=== PATIENT | male | born 1985 | race American Indian/Alaskan Native ===

== ENCOUNTER 2018-07-24 18:54 | Inpatient (IN) | payer MEDICAID ==
[2018-07-24] MEDS ORDERED: NITROSTAT SL ONE ×2 (19:13→21:35)
[2018-07-24] MEDS ORDERED: CATAPRES PO ONE (20:01)
[2018-07-24] MEDS ORDERED: NITRO-BID 2% TP ONE (20:01)
[2018-07-24] MEDS ORDERED: SUBLIMAZE IV ONE (20:01)
[2018-07-24] MEDS ORDERED: ZOFRAN IV ONE (20:01)
[2018-07-24] MEDS ORDERED: ASPIRIN PO ONE (20:02)
--- NOTE | 2018-07-24 20:17 | Emergency Department Report ---
HPI - General Chief Complaint: Chest Pain Time Seen by Provider: 07/24/18 19:48 - HPI HPI: Room 3 The patient is a 33-year-old male presented with a chief complaint of chest pain. Patient states for 1 month he's had intermittent left-sided chest pain bu t has increased over the past 2-to 3 days. Patient is to dyspnea on exertion for one day. Patient describes chest pain as sharp and dull in nature. Patient denies shortness of breath, nausea/vomiting or diaphoresis. Patient states he believes his last stress test occurred over 5 years ago and he is not certain if he's ever had a cardiac catheterization. Location: Chest Duration: [See above] Quality: Sharp/dull Severity: Moderate Modifying factors: [see above] Context: [see above] Mode of transportation: [not driving] ED Past Medical Hx - Past Medical History Previous Medical History?: Yes Hx Hypertension: Yes Hx Congestive Heart Failure: Yes Additional medical history: Aortic Dissection, Gout - Surgical History Past Surgical History?: Yes Hx Open Heart Surgery: Yes Additional Surgical History: Aortic valve replacecment (porcine) - Family History Family history: no significant - Social History Smoking Status: Never Smoker Substance Use Type: None (denies illicit drug use) ED Review of Systems ROS: Stated complaint: CHEST PAIN Other details as noted in HPI Constitutional: denies: diaphoresis Eyes: denies: eye pain ENT: denies: throat pain Respiratory: SOB with exertion Cardiovascular: chest pain Endocrine: no symptoms reported Gastrointestinal: denies: nausea, vomiting Genitourinary: denies: dysuria Musculoskeletal: denies: back pain Neurological: headache Physical Exam - Physical Exam Vital Signs: Vital Signs 07/24/18 19:13 Temperature 99.3 F Pulse Rate 84 Respiratory 31 H Rate Blood Pressure 216/144 O2 Sat by Pulse 95 Oximetry ED Course Vital Signs 07/24/18 19:13 Temperature 99.3 F Pulse Rate 84 Respiratory 31 H Rate Blood Pressure 216/144 O2 Sat by Pulse 95 Oximetry ED Medical Decision Making - Lab Data Result diagrams: 07/24/18 20:25 07/24/18 20:25 Laboratory Tests 07/24/18 07/24/18 07/24/18 20:25 20:25 20:25 WBC 6.0 RBC 4.85 Hgb 13.9 Hct 42.3 MCV 87 MCH 29 MCHC 33 RDW 16.6 H Plt Count 195 Lymph % (Auto) 36.7 H [place] % (Auto) 13.2 H Eos % (Auto) 2.1 Baso % (Auto) 0.8 Lymph # 2.2 [place] # 0.8 Eos # 0.1 Baso # 0.0 Seg Neutrophils % 47.2 Seg Neutrophils # 2.8 PT 14.0 INR 1.02 APTT 34.8 Sodium 140 Potassium 3.9 Chloride 100.2 Carbon Dioxide 25 Anion Gap 19 BUN 33 H Creatinine 2.8 H Estimated GFR 32 BUN/Creatinine Ratio 12 Glucose 93 Calcium 8.4 Total Creatine Kinase 731 H CK-MB (CK-2) 8.4 H CK-MB (CK-2) Rel Index 1.1 Troponin T 0.051 H - EKG Data -: EKG Interpreted by Me EKG shows normal: sinus rhythm Rate: normal - EKG Data When compared to previous EKG there are: previous EKG unavailable Interpretation: nonspecific ST-T wave emy (T-wave inversion in lead 1, aVL, V5, V6) - Radiology Data Radiology results: image reviewed (chest x-ray) interpreted by me: Chest [id number]. No focal infiltrates, no pneumothorax - Differential Diagnosis hypertensive emergency, ACS, pericarditis, GERD Critical care attestation.: If time is entered above; I have spent that time in minutes in the direct care of this critically ill patient, excluding procedure time. ED Disposition Clinical Impression: Chest pain, Hypertensive urgency, Renal insufficiency Disposition: 09 OP ADMIT IP TO THIS HOSP Is pt being admited?: Yes Does the pt Need Aspirin: Yes Condition: Fair Instructions: Chest Pain (ED) Referrals: LING POOLE MD [Primary Care Provider] - 3-5 Days Time of Disposition: 21:21 (hospitalist paged (Dr. Luba Perez))
[2018-07-24 20:48] LABS: Basophils % (Auto) 0.8 % (0.0-1.8); Eosinophils # (Auto) 0.1 K/mm3 (0.0-0.4); Eosinophils % (Auto) 2.1 % (0.0-4.3); Hematocrit 42.3 % (35.5-45.6); Hemoglobin 13.9 gm/dl (11.8-15.2); Lymphocytes # (Auto) 2.2 K/mm3 (1.2-5.4); Lymphocytes % (Auto) 36.7 % (13.4-35.0); Mean Corpuscular HGB Conc 33 % (32-34); Mean Corpuscular Volume 87 fl (84-94); Monocytes # (Auto) 0.8 K/mm3 (0.0-0.8); Monocytes % (Auto) 13.2 % (0.0-7.3); Platelet Count 195 K/mm3 (140-440); Red Blood Count 4.85 M/mm3 (3.65-5.03); Red Cell Distribution Width 16.6 % (13.2-15.2)
[2018-07-24 20:59] LABS: INR 1.02 (0.87-1.13)
[2018-07-24 21:00] LABS: Partial Thromboplastin Time 34.8 Sec. (24.2-36.6)
[2018-07-24 21:08] LABS: Creatine Kinase MB 8.4 ng/mL (0.0-4.0)
[2018-07-24 21:09] LABS: Calcium 8.4 mg/dL (8.4-10.2)
[2018-07-24 21:24] LABS: Chol/HDL Ratio 5.14 %
--- NOTE | 2018-07-24 21:51 | XRay Report ---
PROCEDURE: XR CHEST 1V AP TECHNIQUE: Chest radiograph single view. HISTORY: chest pain COMPARISONS: None . FINDINGS: There is mild to moderate degree cardiomegaly. Pulmonary venous congestion is noted. There are subseg mental atelectatic changes in the right lung base. The right hilar structures are prominent. Bilatera l pleural spaces are clear. Sternal sutures are identified. IMPRESSION: Cardiomegaly with pulmonary venous congestion Prominent right hilar structures which is most likely secondary to patient rotation to the left This document is electronically signed by Doug Spivey MD., July 24 2018 09:49:07 PM ET
--- NOTE | 2018-07-24 22:43 | History and Physical Report ---
History of Present Illness Date of examination: 07/24/18 History of present illness: 33-year-old man with a history of hypertension, CHF, gout status post aortic dissection repair is emergency room with complaints of chest pain. Pain is in the left chest which he describes as a sharp pain, sometimes dull, intermittent between 30 minutes -2 hours, intensity 5/10, cannot identify exacerbating factors. Admits shortness of breath, dyspnea on exertion, swelling in his belly, states compliant with medications. No nausea vomiting Review of systems Constitutional: no weight loss, chills, fever Ears, eyes, nose, mouth and throat: no nasal congestion, no nasal discharge, no sinus pressure, no vision change, no red eye. Neck: No neck pain or rigidity. Cardiovascular: no palpitations, +chest pain Respiratory: no cough Gastrointestinal: no hematochezia, abdominal pain Genitourinary : no frequency , no hematuria Musculoskeletal: no joint swelling or muscle ache Integumentary: no rash, no pruritis Neurological: no parathesias, no focal weakness Endocrine: no cold or heat intolerance, no polyuria or polydipsia Hematologic/Lymphatic: no easy bruising, no easy bleeding, no gland swelling Allergic/Immunologic: no urticaria, no angioedema. PAST MEDICAL HISTORY:hypertension, CHF, gout PAST SURGICAL HISTORY: Hernia repair, aortic dissection repair SOCIAL HISTORY: Denies alcohol, drugs, tobacco FAMILY HISTORY: Hypertension Medications and Allergies Allergies Allergy/AdvReac Type Severity Reaction Status Date / Time No Known Allergies Allergy Unverified 07/24/18 20:25 Exam - Physical Exam Narrative exam: General Apperance: The patient lying in bed, breathing comfortable HEENT: Normocephalic, atraumatic. Pupils equally round and reactive to light, EOMI, no sclericterus or JVD or thyromegaly or nodule. , no carotid bruit, mucous membranes moist, no exudate or erythema Heart: S1-S2, regular is rhythm Lungs: Crackles bilaterally, breathing comfortable Abdomen: Positive bowel sounds, soft, nontender, nondistended, no organomegaly Extremities: No edema cyanosis clubbing Skin: no rash, nodule, warm and dry Neuro: cranial nerves 2-12 intact, speech is fluent, motor/sensory intact - Constitutional Vitals: Temp Pulse Resp BP Pulse Ox 99.3 F 79 25 H 185/119 92 07/24/18 19:13 07/24/18 21:45 07/24/18 21:45 07/24/18 21:45 07/24/18 21:45 Results - Labs CBC & Chem 7: 07/24/18 20:25 07/24/18 20:25 Labs: Abnormal lab results 07/24/18 07/24/18 Range/Units 20:25 20:25 RDW 16.6 H (13.2-15.2) % Lymph % (Auto) 36.7 H (13.4-35.0) % [place] % (Auto) 13.2 H (0.0-7.3) % BUN 33 H (9-20) mg/dL Creatinine 2.8 H (0.8-1.5) mg/dL Total Creatine Kinase 731 H (55-170) units/L CK-MB (CK-2) 8.4 H (0.0-4.0) ng/mL Troponin T 0.051 H (0.00-0.029) ng/mL LDL Cholesterol Direct 154 H (50-130) mg/dL HDL Cholesterol 35 L (40-59) mg/dL - Imaging and Cardiology EKG: image reviewed Chest x-ray: report reviewed Assessment and Plan Assessment Acute on chronic CHF, systolic Chest pain kidney disease, ? Acute hypertension gout Plan Diurese with IV Lasix Start Beta khoi, aspirin hold AYLIN inhibitor for now Check cardiac enzymes, echo, consult cardiology Refuse stress test IV morphine, DVT prophylaxis
[2018-07-24] MEDS ORDERED: SODIUM CHLORIDE FLUSH SYRINGE 10 ML IV PRN (22:58)
[2018-07-25] MEDS: APRESOLINE IV PRN ×5 (00:02→23:38)
[2018-07-25 00:04] LABS: Creatine Kinase MB 6.9 ng/mL (0.0-4.0)
[2018-07-25] MEDS ORDERED: CARDIZEM IV ONE (01:02)
[2018-07-25] MEDS ORDERED: CARDIZEM ONE (01:07)
[2018-07-25] MEDS: PERCOCET 5/325 PO PRN ×3 (01:23→18:39)
[2018-07-25] MEDS ORDERED: PERCOCET 5/325 ONE (01:25)
[2018-07-25] MEDS: TYLENOL PO PRN (02:21)
[2018-07-25] MEDS: ZOFRAN IV PRN ×2 (04:38→11:07)
[2018-07-25] MEDS: LASIX IV SCH ×2 (05:41→18:04)
[2018-07-25 06:03] LABS: Basophils % (Auto) 0.8 % (0.0-1.8); Eosinophils # (Auto) 0.1 K/mm3 (0.0-0.4); Eosinophils % (Auto) 1.1 % (0.0-4.3); Hematocrit 41.7 % (35.5-45.6); Hemoglobin 13.9 gm/dl (11.8-15.2); Lymphocytes # (Auto) 1.9 K/mm3 (1.2-5.4); Lymphocytes % (Auto) 29.8 % (13.4-35.0); Mean Corpuscular HGB Conc 33 % (32-34); Mean Corpuscular Volume 88 fl (84-94); Monocytes # (Auto) 0.6 K/mm3 (0.0-0.8); Monocytes % (Auto) 9.5 % (0.0-7.3); Platelet Count 200 K/mm3 (140-440); Red Blood Count 4.74 M/mm3 (3.65-5.03); Red Cell Distribution Width 16.7 % (13.2-15.2)
[2018-07-25 06:12] LABS: Creatine Kinase MB 7.2 ng/mL (0.0-4.0)
[2018-07-25 06:14] LABS: Calcium 8.4 mg/dL (8.4-10.2)
[2018-07-25] MEDS ORDERED: LOPRESSOR PO SCH (08:00)
[2018-07-25] MEDS: LOVENOX SUB-Q SCH (09:25)
[2018-07-25] MEDS: BABY ASPIRIN PO SCH (09:25)
[2018-07-25] MEDS: NORVASC PO SCH (09:26)
[2018-07-25] MEDS: SODIUM CHLORIDE FLUSH SYRINGE 10 ML IV SCH ×2 (09:34→22:35)
[2018-07-25] MEDS: CATAPRES PO SCH ×2 (11:14→18:36)
[2018-07-25] MEDS ORDERED: LOPRESSOR IV ONE (11:30)
--- NOTE | 2018-07-25 11:51 | Consultation ---
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 He reports that he sees cardiology at [place]. He presented with complaints of chest pain, SOB, SANTIAGO, abdominal swelling and BLE swelling for the past several weeks. He describes his chest pain as a left-sided intermittent throbbing pain which has no clear aggravating or alleviating factors. He reports compliance with his home medication regimen. BPs noted to be significantly elevated. Pt also with c/o headache on evaluation. Echo done 02/2018 showed EF 65%, LV frank severely thickened, abnormal diastolic function, sinus of valsalva is mildly dilated (44 mm), known aortic dissection, intimal dissection flap seen in descending thoracic aorta. Compared to prior echo images from 01/31/17, LVEF is improved.Dissection flap seen in descending thoracic aorta and similar to previous echo. If clinically indicated, could consider cardiac MRI for further evaluation of LV wall thickness. Differential: HTN heart disease, HCM, or infiltrative cardiac disease (amyloidosis). Past History Past Medical History: hypertension, other (aortic dissection ) Past Surgical History: Other (s/p ascending aortic dissection with repair) Medications and Allergies Allergies Allergy/AdvReac Type Severity Reaction Status Date / Time No Known Allergies Allergy Unverified 07/24/18 20:25 Home Medications Medication Instructions Recorded Confirmed Last Taken Type Coreg 07/25/18 07/23/18 History Norvasc 07/25/18 07/23/18 History cloNIDine 3 mg PO DAILY 07/25/18 07/25/18 07/23/18 History hydrALAZINE [Apresoline TAB] 25 mg PO TID 07/25/18 07/25/18 07/23/18 History Active Meds: Active Medications Acetaminophen (Tylenol) 650 mg PO Q4H PRN PRN Reason: Pain MILD(1-3)/Fever >100.5/BAHENA Last Admin: 07/25/18 02:21 Dose: 650 mg Documented by: Amlodipine Besylate (Norvasc) 10 mg PO QDAY [facility] Last Admin: 07/25/18 09:26 Dose: 10 mg Documented by: Aspirin (Baby Aspirin) 81 mg PO QDAY [facility] Last Admin: 07/25/18 09:25 Dose: 81 mg Documented by: Clonidine HCl (Catapres) 0.2 mg PO Q8H [facility] Last Admin: 07/25/18 11:14 Dose: 0.2 mg Documented by: Enoxaparin Sodium (Lovenox) 30 mg SUB-Q QDAY [facility] Last Admin: 07/25/18 09:25 Dose: 30 mg Documented by: Furosemide (Lasix) 40 mg IV BID@0600,1800 [facility] Last Admin: 07/25/18 05:41 Dose: 40 mg Documented by: Hydralazine HCl (Apresoline) 10 mg IV Q4HR PRN PRN Reason: SBP>170 or DBP>110 Last Admin: 07/25/18 08:55 Dose: 10 mg Documented by: Metoprolol Tartrate (Lopressor) 50 mg PO Q6H [facility] Ondansetron HCl (Zofran) 4 mg IV Q4H PRN PRN Reason: Nausea And Vomiting Last Admin: 07/25/18 11:07 Dose: 4 mg Documented by: Oxycodone/Acetaminophen (Percocet 5/325) 1 tab PO Q6H PRN PRN Reason: Pain, Moderate (4-6) Last Admin: 07/25/18 08:30 Dose: 1 tab Documented by: Sodium Chloride (Sodium Chloride Flush Syringe 10 Ml) 10 ml IV BID [facility] Last Admin: 07/25/18 09:34 Dose: 10 ml Documented by: Sodium Chloride (Sodium Chloride Flush Syringe 10 Ml) 10 ml IV PRN PRN PRN Reason: LINE FLUSH Review of Systems Constitutional: no fever, no chills, no sweats Ears, nose, mouth and throat: headache, no ear pain, no nose pain, no sinus pressure, no sinus pain Cardiovascular: chest pain, orthopnea, edema, shortness of breath, dyspnea on exertion, paroxysmal nocturnal dyspnea, high blood pressure, leg edema, no palpitations, no rapid/irregular heart beat, no syncope, no lightheadedness Respiratory: shortness of breath, dyspnea on exertion, no cough, no congestion, no wheezing, no pain on inspiration Gastrointestinal: no abdominal pain, no nausea, no vomiting, no diarrhea, no constipation, no change in bowel habits Genitourinary Male: no dysuria, no hematuria, no flank pain, no discharge, no urinary frequency, no urinary hesitancy Musculoskeletal: no neck stiffness, no neck pain, no shooting arm pain, no arm numbness/tingling, no low back pain, no shooting leg pain Integumentary: no rash, no pruritis, no redness, no sores, no wounds Neurological: headaches, no head injury, no paralysis, no weakness, no parathesias, no numbness, no tingling, no seizures, no syncope Psychiatric: no anxiety Endocrine: no cold intolerance, no heat intolerance Hematologic/Lymphatic: no easy bruising, no easy bleeding Allergic/Immunologic: no urticaria, no wheezing Physical Examination Vital Signs Resp Pulse Ox 14 89 07/24/18 19:08 07/24/18 19:08 General appearance: other (c/o headache) HEENT: Positive: PERRL, Normocephaly, Mucus Membranes Moist Neck: Positive: neck supple, trachea midline Cardiac: Positive: Reg Rate and Rhythm, S1/S2 Lungs: Positive: Decreased Breath Sounds Neuro: Positive: Grossly Intact Abdomen: Negative: Tender Skin: Negative: Rash Musculoskeletal: No Pain Extremities: Present: +1 Edema (BLE) Results 07/25/18 05:10 07/25/18 05:10 Cardiac Enzymes 07/24/18 07/24/18 07/25/18 Range/Units 20:25 23:15 05:10 CK-MB (CK-2) 8.4 H 6.9 H 7.2 H (0.0-4.0) ng/mL Coagulation 07/24/18 Range/Units 20:25 PT 14.0 (12.2-14.9) Sec. INR 1.02 (0.87-1.13) APTT 34.8 (24.2-36.6) Sec. Lipids 07/24/18 Range/Units 20:25 Triglycerides 94 (2-149) mg/dL Cholesterol 180 (50-199) mg/dL HDL Cholesterol 35 L (40-59) mg/dL Cholesterol/HDL Ratio 5.14 % CBC 07/24/18 07/25/18 Range/Units 20:25 05:10 WBC 6.0 6.4 (4.5-11.0) K/mm3 RBC 4.85 4.74 (3.65-5.03) M/mm3 Hgb 13.9 13.9 (11.8-15.2) gm/dl Hct 42.3 41.7 (35.5-45.6) % Plt Count 195 200 (140-440) K/mm3 Lymph # 2.2 1.9 (1.2-5.4) K/mm3 [place] # 0.8 0.6 (0.0-0.8) K/mm3 Eos # 0.1 0.1 (0.0-0.4) K/mm3 Baso # 0.0 0.0 (0.0-0.1) K/mm3 Comprehensive Metabolic Panel 07/24/18 07/25/18 Range/Units 20:25 05:10 Sodium 140 141 (137-145) mmol/L Potassium 3.9 3.9 (3.6-5.0) mmol/L Chloride 100.2 101.5 (98-107) mmol/L Carbon Dioxide 25 23 (22-30) mmol/L BUN 33 H 32 H (9-20) mg/dL Creatinine 2.8 H 2.5 H (0.8-1.5) mg/dL Glucose 93 119 H (75-100) mg/dL Calcium 8.4 8.4 (8.4-10.2) mg/dL - Imaging and Cardiology Echo: pending EKG: report reviewed, image reviewed EKG interpretations - Telemetry EKG Rhythm: Sinus Rhythm - EKG Sinus rhythms and dysrhythmias: sinus rhythm Chamber hypertrophy or enlargement: left ventricular hypertro Repolarization changes or abnormalities: ST or T wave suggestive of ischemia (l ateral) Myocardial infarction: anterior PR (old age or i Assessment and Plan BPs significantly elevated. Optimize BPs - increase PO lopressor and give IV lopressor x 1 dose now. Clonidine initiated per primary, cont norvasc. D/w Dr. Smith - to initiate cardene gtt and tx to CCU. Cont IV diuretics per primary - pt noted to have renal insufficiency. Recommend nephrology consultation per primary. Pt c/o headache - head CT with NAF. Minimally elevated troponins currently nonspecific. Consider stress test prior to hospital discharge. Further recs to follow per hospital course. The patient has been seen in conjunction with Dr. Winnie Isidro who agrees with the assessment and plan of care. - Patient Problems (1) Chest pain Current Visit: Yes Status: Acute (2) Acute heart failure with preserved ejection fraction Current Visit: Yes Status: Acute (3) Hypertensive emergency Current Visit: Yes Status: Acute (4) Acute kidney failure Current Visit: Yes Status: Acute (5) Elevated troponin Current Visit: Yes Status: Acute (6) Abnormal ECG Current Visit: Yes Status: Acute (7) S/P aortic dissection repair Current Visit: Yes Status: Chronic
--- NOTE | 2018-07-25 11:59 | Cat Scan Report ---
CT HEAD WITHOUT CONTRAST: HISTORY: Headache. TECHNIQUE: Sequential 2.5mm CT images. COMPARISON: none. FINDINGS: Cerebral Parenchyma: Within normal limits. Cerebellum: Within normal limits. Brainstem: Within normal limits. Ventricles: Normal. Sella: Normal. Extra-axial spaces: Normal. Basal Cisterns: Normal. Intracranial Hemorrhage: None. Midline Shift: None. Calvarium: Normal. Sinuses: Normal. Mastoid Air Cells: Normal. Visualized Orbits: Normal. IMPRESSION: Cranial CT scan within normal limits.
[2018-07-25] MEDS: LOPRESSOR PO SCH ×3 (12:38→23:38)
--- NOTE | 2018-07-25 13:04 | Progress Note ---
Assessment and Plan Assessment and plan: Hypertensive emergency BP still uncontrolled On Metoprolol, Norvasc, Clonidine BP was still high. I discussed with cardiology. Plan was to transfer to ICU for cardene drip but now BP improved 146/89 so plans to transfer canceled. Severe headache due to htn emergency CT head done - neg Acute on Chronic kidney disease. Consult Nephrology. Strict I/O baseline unknown request records from [facility]. he had appt to see Economic Geographer next week but has not seen him yet. History of aortic dissection s/p repair full code status. History Interval history: BP uncontrolled Headache chest pain , resolved Hospitalist Physical - Physical exam Narrative exam: GEN: Not in acute distress, sitting up in bed, Obese HEENT: Normocephalic, atraumatic, Neck: supple, No JVD heart: S1 and S2 reg, no murmurs, rubs or gallop Lungs: Clear to auscultation bilaterally, no wheeze Abd:soft, non tender, non distended, normal bowel sounds Ext: No edema,no clubbing, no cyanosis, Neuro:Awake,alert,oriented X 3, no focal signs, moves all ext Psych: normal mood - Constitutional Vitals: Temp Pulse Resp BP Pulse Ox 97.6 F 90 18 210/130 97 07/25/18 11:01 07/25/18 12:38 07/25/18 11:01 07/25/18 12:38 07/25/18 11:01 General appearance: Present: other (c/o headache) Results - Labs CBC & Chem 7: 07/25/18 05:10 07/25/18 05:10 Labs: Laboratory Last Values WBC 6.4 K/mm3 (4.5-11.0) 07/25/18 05:10 RBC 4.74 M/mm3 (3.65-5.03) 07/25/18 05:10 Hgb 13.9 gm/dl (11.8-15.2) 07/25/18 05:10 Hct 41.7 % (35.5-45.6) 07/25/18 05:10 MCV 88 fl (84-94) 07/25/18 05:10 MCH 29 pg (28-32) 07/25/18 05:10 MCHC 33 % (32-34) 07/25/18 05:10 RDW 16.7 % (13.2-15.2) H 07/25/18 05:10 Plt Count 200 K/mm3 (140-440) 07/25/18 05:10 Lymph % (Auto) 29.8 % (13.4-35.0) 07/25/18 05:10 [place] % (Auto) 9.5 % (0.0-7.3) H 07/25/18 05:10 Eos % (Auto) 1.1 % (0.0-4.3) 07/25/18 05:10 Baso % (Auto) 0.8 % (0.0-1.8) 07/25/18 05:10 Lymph # 1.9 K/mm3 (1.2-5.4) 07/25/18 05:10 [place] # 0.6 K/mm3 (0.0-0.8) 07/25/18 05:10 Eos # 0.1 K/mm3 (0.0-0.4) 07/25/18 05:10 Baso # 0.0 K/mm3 (0.0-0.1) 07/25/18 05:10 Seg Neutrophils % 58.8 % (40.0-70.0) 07/25/18 05:10 Seg Neutrophils # 3.8 K/mm3 (1.8-7.7) 07/25/18 05:10 PT 14.0 Sec. (12.2-14.9) 07/24/18 20:25 INR 1.02 (0.87-1.13) 07/24/18 20:25 APTT 34.8 Sec. (24.2-36.6) 07/24/18 20:25 Sodium 141 mmol/L (137-145) 07/25/18 05:10 Potassium 3.9 mmol/L (3.6-5.0) 07/25/18 05:10 Chloride 101.5 mmol/L (98-107) 07/25/18 05:10 Carbon Dioxide 23 mmol/L (22-30) 07/25/18 05:10 Anion Gap 20 mmol/L 07/25/18 05:10 BUN 32 mg/dL (9-20) H 07/25/18 05:10 Creatinine 2.5 mg/dL (0.8-1.5) H 07/25/18 05:10 Estimated GFR 36 ml/min 07/25/18 05:10 BUN/Creatinine Ratio 13 % 07/25/18 05:10 Glucose 119 mg/dL (75-100) H 07/25/18 05:10 Calcium 8.4 mg/dL (8.4-10.2) 07/25/18 05:10 Total Creatine Kinase 534 units/L (55-170) H 07/25/18 05:10 CK-MB (CK-2) 7.2 ng/mL (0.0-4.0) H 07/25/18 05:10 CK-MB (CK-2) Rel Index 1.3 (0-4) 07/25/18 05:10 Troponin T 0.042 ng/mL (0.00-0.029) H D 07/25/18 05:10 Triglycerides 94 mg/dL (2-149) 07/24/18 20:25 Cholesterol 180 mg/dL (50-199) 07/24/18 20:25 LDL Cholesterol Direct 154 mg/dL (50-130) H 07/24/18 20:25 HDL Cholesterol 35 mg/dL (40-59) L 07/24/18 20:25 Cholesterol/HDL Ratio 5.14 % 07/24/18 20:25 Active Medications - Current Medications Current Medications: Generic Name Dose Route Start Last Admin Trade Name Freq PRN Reason Stop Dose Admin Acetaminophen 650 mg 07/24/18 22:58 07/25/18 02:21 Tylenol PO 650 mg Q4H PRN Administration Pain MILD(1-3)/Fever >100.5/BAHENA Amlodipine Besylate 10 mg 07/25/18 10:00 07/25/18 09:26 Norvasc PO 10 mg QDAY AYESHA Administration Aspirin 81 mg 07/25/18 10:00 07/25/18 09:25 Baby Aspirin PO 81 mg QDAY AYESHA Administration Clonidine HCl 0.2 mg 07/25/18 11:00 07/25/18 11:14 Catapres PO 0.2 mg Q8H AYESHA Administration Enoxaparin Sodium 30 mg 07/25/18 10:00 07/25/18 09:25 Lovenox SUB-Q 30 mg QDAY AYESHA Administration Furosemide 40 mg 07/25/18 06:00 07/25/18 05:41 Lasix IV 40 mg BID@0600,1800 AYESHA Administration Hydralazine HCl 10 mg 07/25/18 10:00 07/25/18 08:55 Apresoline IV 10 mg Q4HR PRN Administration SBP>170 or DBP>110 Metoprolol Tartrate 50 mg 07/25/18 12:00 07/25/18 12:38 Lopressor PO 50 mg Q6H AYESHA Administration Ondansetron HCl 4 mg 07/24/18 22:58 07/25/18 11:07 Zofran IV 4 mg Q4H PRN Administration Nausea And Vomiting Oxycodone/Acetaminophen 1 tab 07/24/18 22:58 07/25/18 08:30 Percocet 5/325 PO 1 tab Q6H PRN Administration Pain, Moderate (4-6) Sodium Chloride 10 ml 07/25/18 10:00 07/25/18 09:34 Sodium Chloride Flush Syringe 10 Ml IV 10 ml BID AYESHA Administration Sodium Chloride 10 ml 07/24/18 22:58 Sodium Chloride Flush Syringe 10 Ml IV PRN PRN LINE FLUSH
[2018-07-25 17:11] LABS: Calcium 8.2 mg/dL (8.4-10.2)
[2018-07-26] MEDS: CATAPRES PO SCH ×3 (03:36→20:04)
[2018-07-26] MEDS: LOPRESSOR PO SCH ×3 (05:21→19:11)
[2018-07-26] MEDS: LASIX IV SCH ×2 (05:21→19:17)
[2018-07-26 06:37] LABS: Hematocrit 40.1 % (35.5-45.6); Mean Corpuscular HGB Conc 33 % (32-34); Mean Corpuscular Volume 88 fl (84-94); Platelet Count 202 K/mm3 (140-440); Red Blood Count 4.55 M/mm3 (3.65-5.03); Red Cell Distribution Width 17.1 % (13.2-15.2)
[2018-07-26 06:58] LABS: Calcium 8.2 mg/dL (8.4-10.2)
--- NOTE | 2018-07-26 09:45 | Consultation ---
History of Present Illness - Reason for Consult Consult date: 07/26/18 acute renal failure, chronic renal failure - History of Present Illness the patient is a 33 year old male was admitted for worsening OSB, swelling in BLE and chest pain, CXR was noted to pulm edema and was started on lasix, cardiology consulted for h/o diastolic CHF. renal consult was requested for worsening Cr. Past History Past Medical History: heart failure, hypertension, other (aortic dissection ) Past Surgical History: Other (s/p ascending aortic dissection with repair) Medications and Allergies Allergies Allergy/AdvReac Type Severity Reaction Status Date / Time No Known Allergies Allergy Unverified 07/24/18 20:25 Home Medications Medication Instructions Recorded Confirmed Last Taken Type Coreg 25 mg PO DAILY 07/25/18 07/25/18 07/23/18 History Norvasc 5 mg PO DAILY 07/25/18 07/25/18 07/23/18 History cloNIDine 3 mg PO DAILY 07/25/18 07/25/18 07/23/18 History hydrALAZINE [Apresoline TAB] 25 mg PO TID 07/25/18 07/25/18 07/23/18 History Active Meds: Active Medications Acetaminophen (Tylenol) 650 mg PO Q4H PRN PRN Reason: Pain MILD(1-3)/Fever >100.5/BAHENA Last Admin: 07/25/18 02:21 Dose: 650 mg Documented by: Amlodipine Besylate (Norvasc) 10 mg PO QDAY [facility] Last Admin: 07/25/18 09:26 Dose: 10 mg Documented by: Aspirin (Baby Aspirin) 81 mg PO QDAY [facility] Last Admin: 07/25/18 09:25 Dose: 81 mg Documented by: Clonidine HCl (Catapres) 0.2 mg PO Q8H [facility] Last Admin: 07/26/18 03:36 Dose: 0.2 mg Documented by: Enoxaparin Sodium (Lovenox) 30 mg SUB-Q QDAY [facility] Last Admin: 07/25/18 09:25 Dose: 30 mg Documented by: Furosemide (Lasix) 40 mg IV BID@0600,1800 [facility] Last Admin: 07/26/18 05:21 Dose: 40 mg Documented by: Hydralazine HCl (Apresoline) 10 mg IV Q4HR PRN PRN Reason: SBP>170 or DBP>110 Last Admin: 07/25/18 23:38 Dose: 10 mg Documented by: Metoprolol Tartrate (Lopressor) 50 mg PO Q6H [facility] Last Admin: 07/26/18 05:21 Dose: 50 mg Documented by: Ondansetron HCl (Zofran) 4 mg IV Q4H PRN PRN Reason: Nausea And Vomiting Last Admin: 07/25/18 11:07 Dose: 4 mg Documented by: Oxycodone/Acetaminophen (Percocet 5/325) 1 tab PO Q6H PRN PRN Reason: Pain, Moderate (4-6) Last Admin: 07/25/18 18:39 Dose: 1 tab Documented by: Sodium Chloride (Sodium Chloride Flush Syringe 10 Ml) 10 ml IV BID AYESHA Last Admin: 07/25/18 22:35 Dose: Not Given Documented by: Sodium Chloride (Sodium Chloride Flush Syringe 10 Ml) 10 ml IV PRN PRN PRN Reason: LINE FLUSH Review of Systems All systems: negative (chest pain, SOB, leg swelling) Exam - Vital Signs Vital signs: Vital Signs Resp Pulse Ox 14 89 07/24/18 19:08 07/24/18 19:08 - General Appearance General appearance: well-developed, well-nourished EENT: ATNC, PERRL, mucous membranes moist Neck: Present: neck supple Respiratory: Clear to Ascultation Heart: regular, S1S2 Gastrointestinal: Present: normoactive bowel sounds, tenderness, distended Integumentary: no rash, warm and dry Neurologic: no focal deficit, no asterixis, alert and oriented x3 Musculoskeletal: Present: other (trace pitting edema in BLE) Psychiatric: mood/affect appropriate Results - Lab Results 07/26/18 05:23 07/26/18 04:51 Most recent lab results Calcium 8.2 mg/dL (8.4-10.2) L 07/26/18 04:51 Assessment and Plan renal failure, possible CKD secondary to HTN and Amyloidosis vs. 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
[2018-07-26] MEDS: SODIUM CHLORIDE FLUSH SYRINGE 10 ML IV SCH ×2 (10:55→22:28)
[2018-07-26] MEDS: PERCOCET 5/325 PO PRN (11:00)
[2018-07-26] MEDS: NORVASC PO SCH (11:01)
[2018-07-26] MEDS: LOVENOX SUB-Q SCH (11:01)
[2018-07-26] MEDS: BABY ASPIRIN PO SCH (11:02)
--- NOTE | 2018-07-26 11:55 | Progress Note ---
Assessment and Plan Assessment and plan: Hypertensive emergency BP still uncontrolled On Metoprolol, Norvasc, Clonidine BP improving but still elevated discussed with Dr. Marley Isidro Severe headache due to htn emergency, Nitrate patch, now resolved CT head done - neg Acute on chronic diastolic CHF On Lasix, Lopressor Acute on Chronic kidney disease. Consulted Nephrology. Strict I/O baseline unknown requested records from [facility]. he had appt to see Photographic Equipment Inspector next week but has not seen him yet. History of aortic dissection s/p repair Full code status. History Interval history: BP improving No more Headache chest pain , resolved Hospitalist Physical - Physical exam Narrative exam: GEN: Not in acute distress, sitting up in bed, Obese HEENT: Normocephalic, atraumatic, Neck: supple, No JVD heart: S1 and S2 reg, no murmurs, rubs or gallop Lungs: Clear to auscultation bilaterally, no wheeze Abd:soft, non tender, non distended, normal bowel sounds Ext: No edema,no clubbing, no cyanosis, Neuro:Awake,alert,oriented X 3, no focal signs, moves all ext Psych: normal mood - Constitutional Vitals: Temp Pulse Resp BP Pulse Ox 98.1 F 69 18 168/104 91 07/26/18 09:21 07/26/18 09:22 07/26/18 09:22 07/26/18 09:22 07/26/18 09:22 General appearance: Present: other (c/o headache) Results - Labs CBC & Chem 7: 07/26/18 05:23 07/26/18 04:51 Labs: Laboratory Last Values WBC 6.0 K/mm3 (4.5-11.0) 07/26/18 05:23 RBC 4.55 M/mm3 (3.65-5.03) 07/26/18 05:23 Hgb 13.0 gm/dl (11.8-15.2) 07/26/18 05:23 Hct 40.1 % (35.5-45.6) 07/26/18 05:23 MCV 88 fl (84-94) 07/26/18 05:23 MCH 29 pg (28-32) 07/26/18 05:23 MCHC 33 % (32-34) 07/26/18 05:23 RDW 17.1 % (13.2-15.2) H 07/26/18 05:23 Plt Count 202 K/mm3 (140-440) 07/26/18 05:23 Lymph % (Auto) 29.8 % (13.4-35.0) 07/25/18 05:10 [place] % (Auto) 9.5 % (0.0-7.3) H 07/25/18 05:10 Eos % (Auto) 1.1 % (0.0-4.3) 07/25/18 05:10 Baso % (Auto) 0.8 % (0.0-1.8) 07/25/18 05:10 Lymph # 1.9 K/mm3 (1.2-5.4) 07/25/18 05:10 [place] # 0.6 K/mm3 (0.0-0.8) 07/25/18 05:10 Eos # 0.1 K/mm3 (0.0-0.4) 07/25/18 05:10 Baso # 0.0 K/mm3 (0.0-0.1) 07/25/18 05:10 Seg Neutrophils % 58.8 % (40.0-70.0) 07/25/18 05:10 Seg Neutrophils # 3.8 K/mm3 (1.8-7.7) 07/25/18 05:10 PT 14.0 Sec. (12.2-14.9) 07/24/18 20:25 INR 1.02 (0.87-1.13) 07/24/18 20:25 APTT 34.8 Sec. (24.2-36.6) 07/24/18 20:25 Sodium 140 mmol/L (137-145) 07/26/18 04:51 Potassium 4.1 mmol/L (3.6-5.0) 07/26/18 04:51 Chloride 100.5 mmol/L (98-107) 07/26/18 04:51 Carbon Dioxide 25 mmol/L (22-30) 07/26/18 04:51 Anion Gap 19 mmol/L 07/26/18 04:51 BUN 35 mg/dL (9-20) H 07/26/18 04:51 Creatinine 3.3 mg/dL (0.8-1.5) H 07/26/18 04:51 Estimated GFR 26 ml/min 03/29/19 04:51 BUN/Creatinine Ratio 11 % 07/26/18 04:51 Glucose 115 mg/dL (75-100) H 07/26/18 04:51 Calcium 8.2 mg/dL (8.4-10.2) L 07/26/18 04:51 Total Creatine Kinase 534 units/L (55-170) H 07/25/18 05:10 CK-MB (CK-2) 7.2 ng/mL (0.0-4.0) H 07/25/18 05:10 CK-MB (CK-2) Rel Index 1.3 (0-4) 07/25/18 05:10 Troponin T 0.042 ng/mL (0.00-0.029) H D 07/25/18 05:10 Triglycerides 94 mg/dL (2-149) 07/24/18 20:25 Cholesterol 180 mg/dL (50-199) 07/24/18 20:25 LDL Cholesterol Direct 154 mg/dL (50-130) H 07/24/18 20:25 HDL Cholesterol 35 mg/dL (40-59) L 07/24/18 20:25 Cholesterol/HDL Ratio 5.14 % 07/24/18 20:25 Active Medications - Current Medications Current Medications: Generic Name Dose Route Start Last Admin Trade Name Freq PRN Reason Stop Dose Admin Acetaminophen 650 mg 07/24/18 22:58 07/25/18 02:21 Tylenol PO 650 mg Q4H PRN Administration Pain MILD(1-3)/Fever >100.5/BAHENA Amlodipine Besylate 10 mg 07/25/18 10:00 07/26/18 11:01 Norvasc PO 10 mg QDAY AYESHA Administration Aspirin 81 mg 07/25/18 10:00 07/26/18 11:02 Baby Aspirin PO 81 mg QDAY AYESHA Administration Clonidine HCl 0.2 mg 07/25/18 11:00 07/26/18 10:55 Catapres PO 0.2 mg Q8H AYESHA Administration Enoxaparin Sodium 30 mg 07/25/18 10:00 07/26/18 11:01 Lovenox SUB-Q 30 mg QDAY AYESHA Administration Furosemide 40 mg 07/25/18 06:00 07/26/18 05:21 Lasix IV 40 mg BID@0600,1800 A[facility] Administration Hydralazine HCl 10 mg 07/25/18 10:00 07/25/18 23:38 Apresoline IV 10 mg Q4HR PRN Administration SBP>170 or DBP>110 Metoprolol Tartrate 50 mg 07/25/18 12:00 07/26/18 05:21 Lopressor PO 50 mg Q6H AYESHA Administration Ondansetron HCl 4 mg 07/24/18 22:58 07/25/18 11:07 Zofran IV 4 mg Q4H PRN Administration Nausea And Vomiting Oxycodone/Acetaminophen 1 tab 07/24/18 22:58 07/26/18 11:00 Percocet 5/325 PO 1 tab Q6H PRN Administration Pain, Moderate (4-6) Sodium Chloride 10 ml 07/25/18 10:00 07/26/18 10:55 Sodium Chloride Flush Syringe 10 Ml IV 10 ml BID AYESHA Administration Sodium Chloride 10 ml 07/24/18 22:58 Sodium Chloride Flush Syringe 10 Ml IV PRN PRN LINE FLUSH
--- NOTE | 2018-07-26 12:37 | Progress Note ---
Assessment and Plan No significant cardiac symptoms. Blood pressure is not well-controlled. We'll increase the hydralazine to 50 mg by mouth 3 times a day and continue monitoring the blood pressure. Discussed with - Patient Problems (1) Hypertensive urgency Current Visit: Yes Status: Acute (2) Renal insufficiency Current Visit: Yes Status: Acute (3) S/P aortic dissection repair Current Visit: Yes Status: Chronic Subjective Date of service: 07/26/18 Interval history: Patient is feeling better. No significant cardiac symptoms today. Blood pressure is not well controlled. Objective Vital Signs Temp Pulse Resp BP BP Pulse Ox 07/26/18 09:22 69 18 168/104 91 07/26/18 09:21 98.1 F 07/26/18 05:14 97.7 F 69 18 146/90 98 07/26/18 03:35 97.4 F L 73 18 147/89 94 07/26/18 01:03 68 18 161/99 93 07/26/18 00:00 75 07/25/18 23:29 98.1 F 68 16 169/107 88 07/25/18 23:00 91 07/25/18 20:38 97.8 F 16 145/80 07/25/18 20:00 98.5 F 69 16 182/112 93 07/25/18 18:36 89 167/100 07/25/18 18:05 77 167/100 07/25/18 16:00 71 18 151/84 95 07/25/18 15:20 75 18 146/89 96 07/25/18 14:05 97 07/25/18 13:15 81 204/123 07/25/18 12:38 90 210/130 - Physical Examination General: Appears Well HEENT: Positive: PERRL, Normocephaly, Mucus Membranes Moist Neck: Positive: neck supple, trachea midline Cardiac: Positive: Reg Rate and Rhythm, Regular Rate Lungs: Positive: clear to auscultation Neuro: Positive: Grossly Intact Abdomen: Positive: Soft. Negative: Tender Skin: Negative: Rash Musculoskeletal: No Pain Extremities: Present: +1 Edema (BLE) - Labs and Meds CBC 07/26/18 Range/Units 05:23 WBC 6.0 (4.5-11.0) K/mm3 RBC 4.55 (3.65-5.03) M/mm3 Hgb 13.0 (11.8-15.2) gm/dl Hct 40.1 (35.5-45.6) % Plt Count 202 (140-440) K/mm3 Comprehensive Metabolic Panel 07/25/18 07/26/18 Range/Units 16:14 04:51 Sodium 137 140 (137-145) mmol/L Potassium 4.1 4.1 (3.6-5.0) mmol/L Chloride 100.1 100.5 (98-107) mmol/L Carbon Dioxide 25 25 (22-30) mmol/L BUN 33 H 35 H (9-20) mg/dL Creatinine 3.0 H 3.3 H (0.8-1.5) mg/dL Glucose 135 H 115 H (75-100) mg/dL Calcium 8.2 L 8.2 L (8.4-10.2) mg/dL - Imaging and Cardiology EKG: report reviewed, image reviewed Echo: pending - EKG Sinus rhythms and dysrhythmias: sinus rhythm Chamber hypertrophy or enlargement: left ventricular hypertro Repolarization changes or abnormalities: ST or T wave suggestive of ischemia (lateral) Myocardial infarction: anterior [place] (old age or i
[2018-07-26] MEDS: APRESOLINE PO SCH ×2 (14:24→22:27)
[2018-07-26 15:25] LABS: Bacteria,Urine 1+ /HPF (Negative); Bilirubin,Urine NEG (Negative); Blood,Urine NEG (Negative); Color,Urine Yellow (Yellow); Mucus,Urine FEW /HPF; Urobilinogen,Urine < 2.0 mg/dL (<2.0)
[2018-07-27] MEDS: LOPRESSOR PO SCH ×5 (00:52→23:57)
[2018-07-27] MEDS: APRESOLINE IV PRN ×2 (03:30→19:55)
[2018-07-27] MEDS: CATAPRES PO SCH ×3 (03:30→18:03)
[2018-07-27] MEDS: PERCOCET 5/325 PO PRN ×2 (03:31→18:56)
[2018-07-27] MEDS: APRESOLINE PO SCH ×3 (05:37→21:11)
[2018-07-27] MEDS: LASIX IV SCH (05:39)
[2018-07-27 07:31] LABS: Hematocrit 43.6 % (35.5-45.6); Hemoglobin 14.1 gm/dl (11.8-15.2); Mean Corpuscular HGB Conc 32 % (32-34); Mean Corpuscular Volume 88 fl (84-94); Platelet Count 237 K/mm3 (140-440); Red Blood Count 4.94 M/mm3 (3.65-5.03); Red Cell Distribution Width 17.1 % (13.2-15.2)
[2018-07-27 07:52] LABS: Calcium 8.3 mg/dL (8.4-10.2)
[2018-07-27 09:25] LABS: Anisocytosis 1+; Platelet Estimate Cons; Total Cells Counted 100
[2018-07-27] MEDS: NORVASC PO SCH (09:26)
[2018-07-27] MEDS: LOVENOX SUB-Q SCH (09:27)
[2018-07-27] MEDS: BABY ASPIRIN PO SCH (09:27)
[2018-07-27] MEDS: SODIUM CHLORIDE FLUSH SYRINGE 10 ML IV SCH ×2 (09:28→22:33)
--- NOTE | 2018-07-27 10:04 | Progress Note ---
Assessment and Plan No significant cardiac symptoms. Blood pressure is not well-controlled. We'll increase clonidine and monitor closely. - Patient Problems (1) Hypertensive urgency Current Visit: Yes Status: Acute (2) Renal insufficiency Current Visit: Yes Status: Acute (3) S/P aortic dissection repair Current Visit: Yes Status: Chronic Subjective Date of service: 07/27/18 Interval history: Patient is feeling well denies chest pain difficulty breathing or palpitations. Objective Vital Signs Temp Pulse Resp BP BP Pulse Ox 07/27/18 09:26 68 143/81 07/27/18 09:07 97.7 F 20 L 20 143/81 97 07/27/18 05:37 63 184/113 07/27/18 03:25 97.9 F 63 16 189/118 91 07/27/18 00:00 71 07/26/18 23:37 98.7 F 65 12 150/89 94 07/26/18 22:14 67 18 145/87 95 07/26/18 20:09 18 07/26/18 19:29 98.1 F 68 14 157/99 93 07/26/18 15:50 97.7 F 07/26/18 15:48 69 18 139/88 96 07/26/18 12:46 98.4 F 71 18 172/95 93 - Physical Examination General: Appears Well HEENT: Positive: PERRL, Normocephaly, Mucus Membranes Moist Neck: Positive: neck supple Cardiac: Positive: Reg Rate and Rhythm, Regular Rhythm Lungs: Positive: clear to auscultation Neuro: Positive: Grossly Intact Abdomen: Positive: Soft. Negative: Tender Skin: Negative: Rash Musculoskeletal: No Pain Extremities: Present: +1 Edema (BLE) - Labs and Meds CBC 07/27/18 Range/Units 06:58 WBC 6.2 (4.5-11.0) K/mm3 RBC 4.94 (3.65-5.03) M/mm3 Hgb 14.1 (11.8-15.2) gm/dl Hct 43.6 (35.5-45.6) % Plt Count 237 (140-440) K/mm3 Comprehensive Metabolic Panel 07/27/18 Range/Units 06:58 Sodium 139 (137-145) mmol/L Potassium 4.0 (3.6-5.0) mmol/L Chloride 100.8 (98-107) mmol/L Carbon Dioxide 25 (22-30) mmol/L BUN 35 H (9-20) mg/dL Creatinine 3.3 H (0.8-1.5) mg/dL Glucose 92 (75-100) mg/dL Calcium 8.3 L (8.4-10.2) mg/dL - Imaging and Cardiology EKG: report reviewed, image reviewed Echo: pending - EKG Sinus rhythms and dysrhythmias: sinus rhythm Chamber hypertrophy or enlargement: left ventricular hypertro Repolarization changes or abnormalities: ST or T wave suggestive of ischemia (lateral) Myocardial infarction: anterior [place] (old age or i
--- NOTE | 2018-07-27 10:23 | Progress Note ---
Assessment and Plan Acute renal failure, possible CKD secondary to HTN and Amyloidosis vs. 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 No family at bedside Objective - Vital Signs Vital signs: Vital Signs - 12hr 07/26/18 07/27/18 07/27/18 23:37 00:00 03:25 Temperature 98.7 F 97.9 F Pulse Rate 65 71 63 Respiratory 12 16 Rate Blood Pressure 150/89 189/118 Blood Pressure [Left] O2 Sat by Pulse 94 91 Oximetry 07/27/18 07/27/18 07/27/18 05:37 09:07 09:26 Temperature 97.7 F Pulse Rate 63 20 L 68 Respiratory 20 Rate Blood Pressure 184/113 143/81 Blood Pressure 143/81 [Left] O2 Sat by Pulse 97 Oximetry - General Appearance General appearance: well-developed EENT: ATNC Neck: no JVD Respiratory: Present: Decreased Breath Sounds Cardiology: regular, S1S2 Gastrointestinal: normoactive bowel sounds, no tenderness Integumentary: warm and dry Neurologic: alert and oriented x3 Musculoskeletal: other (trace edema to BLE) Psychiatric: mood/affect appropriate, cooperative - Lab 07/27/18 06:58 07/27/18 06:58 Most recent lab results Calcium 8.3 mg/dL (8.4-10.2) L 07/27/18 06:58 Phosphorus 3.90 mg/dL (2.5-4.5) 07/27/18 06:58 Urine Sodium 81 mmol/L 07/26/18 14:30 Medications & Allergies - Medications Allergies/Adverse Reactions: Allergies No Known Allergies Allergy (Unverified 07/24/18 20:25) Home Medications: Home Medications Medication Instructions Recorded Confirmed Last Taken Type Coreg 25 mg PO DAILY 07/25/18 07/25/18 07/23/18 History Norvasc 5 mg PO DAILY 07/25/18 07/25/18 07/23/18 History cloNIDine 3 mg PO DAILY 07/25/18 07/25/18 07/23/18 History hydrALAZINE [Apresoline TAB] 25 mg PO TID 07/25/18 07/25/18 07/23/18 History Active Medications: Generic Name Dose Route Start Last Admin Trade Name Freq PRN Reason Stop Dose Admin Acetaminophen 650 mg 07/24/18 22:58 07/25/18 02:21 Tylenol PO 650 mg Q4H PRN Administration Pain MILD(1-3)/Fever >100.5/BAHENA Amlodipine Besylate 10 mg 07/25/18 10:00 07/27/18 09:26 Norvasc PO 10 mg QDAY A[facility] Administration Aspirin 81 mg 07/25/18 10:00 07/27/18 09:27 Baby Aspirin PO 81 mg QDAY [facility] Administration Clonidine HCl 0.3 mg 07/27/18 10:00 Catapres PO Q8H [facility] Enoxaparin Sodium 30 mg 07/25/18 10:00 07/27/18 09:27 Lovenox SUB-Q 30 mg QDAY [facility] Administration Furosemide 40 mg 07/25/18 06:00 07/27/18 05:39 Lasix IV 40 mg BID@0600,1800 [facility] Administration Hydralazine HCl 10 mg 07/25/18 10:00 07/27/18 03:30 Apresoline IV 10 mg Q4HR PRN Administration SBP>170 or DBP>110 Hydralazine HCl 50 mg 07/26/18 14:00 07/27/18 05:37 Apresoline PO 50 mg Q8HR A[facility] Administration Metoprolol Tartrate 50 mg 07/25/18 12:00 07/27/18 05:39 Lopressor PO 50 mg Q6H [facility] Administration Ondansetron HCl 4 mg 07/24/18 22:58 07/25/18 11:07 Zofran IV 4 mg Q4H PRN Administration Nausea And Vomiting Oxycodone/Acetaminophen 1 tab 07/24/18 22:58 07/27/18 03:31 Percocet 5/325 PO 1 tab Q6H PRN Administration Pain, Moderate (4-6) Sodium Chloride 10 ml 07/25/18 10:00 07/27/18 09:28 Sodium Chloride Flush Syringe 10 Ml IV 10 ml BID AYESHA Administration Sodium Chloride 10 ml 07/24/18 22:58 Sodium Chloride Flush Syringe 10 Ml IV PRN PRN LINE FLUSH
[2018-07-27] MEDS: TYLENOL PO PRN (21:23)
[2018-07-27 22:08] LABS: Bilirubin,Urine NEG (Negative); Blood,Urine NEG (Negative); Color,Urine Yellow (Yellow); Mucus,Urine FEW /HPF
[2018-07-27 22:18] LABS: Protein,Urine >500 mg/dL (Negative)
[2018-07-27 22:46] LABS: Creatinine,Urine 291.7 mg/dL (0.1-20.0)
[2018-07-27 23:27] LABS: Microalbumin/Creatinine Ratio 614.3 ug/mg
[2018-07-28] MEDS: PERCOCET 5/325 PO PRN ×3 (01:02→16:17)
[2018-07-28] MEDS: CATAPRES PO SCH ×2 (01:02→09:21)
[2018-07-28] MEDS: APRESOLINE PO SCH ×2 (05:54→14:24)
[2018-07-28] MEDS: LOPRESSOR PO SCH ×2 (05:54→12:22)
[2018-07-28 08:18] LABS: Calcium 8.2 mg/dL (8.4-10.2)
[2018-07-28 08:26] LABS: Basophils % (Auto) 0.8 % (0.0-1.8); Eosinophils # (Auto) 0.2 K/mm3 (0.0-0.4); Eosinophils % (Auto) 2.6 % (0.0-4.3); Hematocrit 40.1 % (35.5-45.6); Hemoglobin 13.2 gm/dl (11.8-15.2); Lymphocytes # (Auto) 2.6 K/mm3 (1.2-5.4); Mean Corpuscular HGB Conc 33 % (32-34); Mean Corpuscular Volume 88 fl (84-94); Monocytes # (Auto) 0.8 K/mm3 (0.0-0.8); Monocytes % (Auto) 14.6 % (0.0-7.3); Platelet Count 223 K/mm3 (140-440); Red Blood Count 4.56 M/mm3 (3.65-5.03); Red Cell Distribution Width 17.2 % (13.2-15.2)
[2018-07-28] MEDS: BABY ASPIRIN PO SCH (09:21)
[2018-07-28] MEDS: NORVASC PO SCH (09:22)
[2018-07-28] MEDS: LOVENOX SUB-Q SCH (09:22)
[2018-07-28] MEDS: SODIUM CHLORIDE FLUSH SYRINGE 10 ML IV SCH (09:23)
--- NOTE | 2018-07-28 09:48 | Progress Note ---
Assessment and Plan Assessment: Acute renal failure, possible CKD secondary to HTN and Amyloidosis vs. JL secondary to cardiorenal syndrome and Hypertensive emergency Diastolic congestive heart failue Hypertension Acute Hypoxic respiratory failure secondary cardiogenic pulmonary edema Plan: - Renal function reviewed, SCr level was 2.9 today, yesterday's SCr level was 3.3, non-oliguric - Non-oliguric, no indication for renal US - Lasix stopped by hospitalist on 07/27/18 - Ok for pt to be d/c home today from nephrology standpoint, pt will need to continue home Bumex 2 mg po daily for now, low sodium/salt diet, follow up with us in the office in 1 week for further evaluation and management - Per cardiology note, 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 No active urine sediment, calculated protein to cr ratio ~ 1 g, will need to follow up with us as an outpatient for further management - Renally dose meds - Strict I&O - Intake= 860 ml Output= 1600 ml ( Net= -740 ml) - Renal plan d/w Dr Read Subjective Date of service: 07/28/18 Interval history: Pt seen in bed, states he is ready to go home. Pt does c/o headache which he attributes to hydralazine. I notified Dr Smith about pt c/o headache with hydralazine and his request for pain medication upon discharge- as per hospitalist management. Family at bedside Objective - Vital Signs Vital signs: Vital Signs - 12hr 07/27/18 07/27/18 07/28/18 22:00 23:49 00:00 Temperature 98.4 F Pulse Rate 63 64 Respiratory 18 18 Rate Blood Pressure 161/100 O2 Sat by Pulse 95 Oximetry 07/28/18 07/28/18 07/28/18 01:21 04:16 05:55 Temperature 97.2 F L 97.5 F L 98.2 F Pulse Rate 65 71 64 Respiratory 20 18 18 Rate Blood Pressure 170/100 143/80 158/94 O2 Sat by Pulse 96 93 98 Oximetry 07/28/18 07/28/18 09:21 09:22 Temperature Pulse Rate 69 69 Respiratory Rate Blood Pressure 160/98 160/98 O2 Sat by Pulse Oximetry - General Appearance General appearance: well-developed EENT: ATNC Neck: no JVD Respiratory: Present: Decreased Breath Sounds Cardiology: regular, S1S2 Gastrointestinal: normoactive bowel sounds, no tenderness Integumentary: warm and dry Neurologic: alert and oriented x3 Musculoskeletal: other (trace edema to BLE) Psychiatric: cooperative - Lab 07/28/18 07:34 07/28/18 07:34 Most recent lab results Calcium 8.2 mg/dL (8.4-10.2) L 07/28/18 07:34 Phosphorus 4.00 mg/dL (2.5-4.5) 07/28/18 07:34 Urine Creatinine 291.7 mg/dL (0.1-20.0) H 07/27/18 09:40 Urine Sodium 81 mmol/L 07/26/18 14:30 Urine Total Protein 284 mg/dL (5-11.8) H 07/27/18 09:40 Medications & Allergies - Medications Allergies/Adverse Reactions: Allergies No Known Allergies Allergy (Unverified 07/24/18 20:25) Home Medications: Home Medications Medication Instructions Recorded Confirmed Last Taken Type Coreg 25 mg PO DAILY 07/25/18 07/25/18 07/23/18 History Norvasc 5 mg PO DAILY 07/25/18 07/25/18 07/23/18 History cloNIDine 3 mg PO DAILY 07/25/18 07/25/18 07/23/18 History hydrALAZINE [Apresoline TAB] 25 mg PO TID 07/25/18 07/25/18 07/23/18 History Allopurinol [Zyloprim] 300 mg PO QDAY 07/28/18 07/28/18 Unknown History Bumetanide [Bumex 1 mg tab] 2 mg PO DAILY 07/28/18 07/28/18 Unknown History Colchicine [Mitigare] 0.6 mg PO DAILY 07/28/18 07/28/18 Unknown History Losartan [Cozaar] 100 mg PO QDAY 07/28/18 07/28/18 Unknown History Active Medications: Generic Name Dose Route Start Last Admin Trade Name Freq PRN Reason Stop Dose Admin Acetaminophen 650 mg 07/24/18 22:58 07/27/18 21:23 Tylenol PO 650 mg Q4H PRN Administration Pain MILD(1-3)/Fever >100.5/BAHENA Amlodipine Besylate 10 mg 07/25/18 10:00 07/28/18 09:22 Norvasc PO 10 mg QDAY AYESHA Administration Aspirin 81 mg 07/25/18 10:00 07/28/18 09:21 Baby Aspirin PO 81 mg QDAY AYESHA Administration Clonidine HCl 0.3 mg 07/27/18 10:00 07/28/18 09:21 Catapres PO 0.3 mg Q8H AYESHA Administration Enoxaparin Sodium 30 mg 07/25/18 10:00 07/28/18 09:22 Lovenox SUB-Q 30 mg QDAY AYESHA Administration Hydralazine HCl 10 mg 07/25/18 10:00 07/27/18 19:55 Apresoline IV 10 mg Q4HR PRN Administration SBP>170 or DBP>110 Hydralazine HCl 50 mg 07/26/18 14:00 07/28/18 05:54 Apresoline PO 50 mg Q8HR AYESHA Administration Metoprolol Tartrate 50 mg 07/25/18 12:00 07/28/18 05:54 Lopressor PO 50 mg Q6H AYESHA Administration Ondansetron HCl 4 mg 07/24/18 22:58 07/25/18 11:07 Zofran IV 4 mg Q4H PRN Administration Nausea And Vomiting Oxycodone/Acetaminophen 1 tab 07/24/18 22:58 07/28/18 09:22 Percocet 5/325 PO 1 tab Q6H PRN Administration Pain, Moderate (4-6) Sodium Chloride 10 ml 07/25/18 10:00 07/28/18 09:23 Sodium Chloride Flush Syringe 10 Ml IV 10 ml BID AYESHA Administration Sodium Chloride 10 ml 07/24/18 22:58 Sodium Chloride Flush Syringe 10 Ml IV PRN PRN LINE FLUSH
--- NOTE | 2018-07-28 10:21 | XRay Report ---
PROCEDURE: XR CHEST 1V AP TECHNIQUE: Single frontal view of the chest HISTORY: pulmonary edema COMPARISONS: Chest radiograph performed on 07/24/2018 FINDINGS: Median sternotomy wires are intact. Stable cardiomegaly. Decreased prominence of the pulmonary vasculature. No pleural effusion or pneumothorax. No acute bony or soft tissue abnormality. IMPRESSION: Stable cardiomegaly. Decreased prominence of the pulmonary vasculature. This document is electronically signed by Pearl Melton MD., July 28 2018 10:19:48 AM ET
--- NOTE | 2018-07-28 11:21 | Progress Note ---
Assessment and Plan Patient is doing well today with no cardiac symptoms. Anxious to go home. is in the room. Negative blood pressure is noted to be 160/98. This probably can be monitored further as an outpatient. I have advised patient to be on a strict low-sodium diet and be compliant with medications. He is also advised about the need for close follow-up as an outpatient. Patient and seem to understand the same. If discharged we'll see him in the office in one week to 10 days. - Patient Problems (1) Hypertensive urgency Current Visit: Yes Status: Acute (2) Renal insufficiency Current Visit: Yes Status: Acute (3) S/P aortic dissection repair Current Visit: Yes Status: Chronic Subjective Date of service: 07/28/18 Interval history: Patient is doing well today. Denies chest pain difficulty in breathing palpitations or other cardiac symptoms. is in the room with him today. Objective Vital Signs Temp Pulse Resp BP BP Pulse Ox 07/28/18 09:53 98.1 F 66 24 160/98 95 07/28/18 09:22 69 160/98 07/28/18 09:21 69 160/98 07/28/18 05:55 98.2 F 64 18 158/94 98 07/28/18 04:16 97.5 F L 71 18 143/80 93 07/28/18 01:21 97.2 F L 65 20 170/100 96 07/28/18 00:00 64 07/27/18 23:49 98.4 F 63 18 161/100 95 07/27/18 22:00 18 07/27/18 19:55 98.1 F 63 18 174/106 97 07/27/18 18:03 64 166/100 07/27/18 16:00 63 07/27/18 15:14 66 144/91 07/27/18 15:02 97.5 F L 84 20 146/84 98 07/27/18 13:01 69 146/84 07/27/18 11:50 64 168/109 - Physical Examination General: Appears Well HEENT: Positive: PERRL, Normocephaly, Mucus Membranes Moist Neck: Positive: neck supple Cardiac: Positive: Reg Rate and Rhythm Lungs: Positive: clear to auscultation Neuro: Positive: Grossly Intact Abdomen: Positive: Soft. Negative: Tender Skin: Negative: Rash Musculoskeletal: No Pain Extremities: Present: +1 Edema (BLE) - Labs and Meds CBC 07/28/18 Range/Units 07:34 WBC 5.8 (4.5-11.0) K/mm3 RBC 4.56 (3.65-5.03) M/mm3 Hgb 13.2 (11.8-15.2) gm/dl Hct 40.1 (35.5-45.6) % Plt Count 223 (140-440) K/mm3 Lymph # 2.6 (1.2-5.4) K/mm3 Miller # 0.8 (0.0-0.8) K/mm3 Eos # 0.2 (0.0-0.4) K/mm3 Baso # 0.0 (0.0-0.1) K/mm3 Comprehensive Metabolic Panel 07/28/18 Range/Units 07:34 Sodium 136 L (137-145) mmol/L Potassium 4.2 (3.6-5.0) mmol/L Chloride 99.0 (98-107) mmol/L Carbon Dioxide 25 (22-30) mmol/L BUN 40 H (9-20) mg/dL Creatinine 2.9 H (0.8-1.5) mg/dL Glucose 97 (75-100) mg/dL Calcium 8.2 L (8.4-10.2) mg/dL - Imaging and Cardiology EKG: report reviewed, image reviewed Echo: pending - EKG Sinus rhythms and dysrhythmias: sinus rhythm Chamber hypertrophy or enlargement: left ventricular hypertro Repolarization changes or abnormalities: ST or T wave suggestive of ischemia (lateral) Myocardial infarction: anterior NM (old age or i
--- NOTE | 2018-07-28 11:25 | Progress Note ---
Assessment and Plan Assessment and plan: Hypertensive emergency BP still uncontrolled On Metoprolol, Norvasc, Clonidine BP improving but still elevated discussed with Dr. Marley Isidro Severe headache due to htn emergency, Nitrate patch, now resolved CT head done - neg Acute on chronic diastolic CHF On Lasix, Lopressor Acute on Chronic kidney disease. Consulted Nephrology. Strict I/O baseline unknown requested records from [facility]. 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 History of aortic dissection s/p repair Full code status. Poss dc home tomorrow History Interval history: BP improving No more Headache chest pain , resolved Hospitalist Physical - Physical exam Narrative exam: GEN: Not in acute distress, sitting up in bed, Obese HEENT: Normocephalic, atraumatic, Neck: supple, No JVD heart: S1 and S2 reg, no murmurs, rubs or gallop Lungs: Clear to auscultation bilaterally, no wheeze Abd:soft, non tender, non distended, normal bowel sounds Ext: No edema,no clubbing, no cyanosis, Neuro:Awake,alert,oriented X 3, no focal signs, moves all ext Psych: normal mood - Constitutional Vitals: Temp Pulse Resp BP Pulse Ox 98.1 F 66 24 160/98 95 07/28/18 09:53 07/28/18 09:53 07/28/18 09:53 07/28/18 09:53 07/28/18 09:53 General appearance: Present: other (c/o headache) Results - Labs CBC & Chem 7: 07/28/18 07:34 07/28/18 07:34 Labs: Laboratory Last Values WBC 5.8 K/mm3 (4.5-11.0) 07/28/18 07:34 RBC 4.56 M/mm3 (3.65-5.03) 07/28/18 07:34 Hgb 13.2 gm/dl (11.8-15.2) 07/28/18 07:34 Hct 40.1 % (35.5-45.6) 07/28/18 07:34 MCV 88 fl (84-94) 07/28/18 07:34 MCH 29 pg (28-32) 07/28/18 07:34 MCHC 33 % (32-34) 07/28/18 07:34 RDW 17.2 % (13.2-15.2) H 07/28/18 07:34 Plt Count 223 K/mm3 (140-440) 07/28/18 07:34 Lymph % (Auto) 45.0 % (13.4-35.0) H 07/28/18 07:34 [place] % (Auto) 14.6 % (0.0-7.3) H 07/28/18 07:34 Eos % (Auto) 2.6 % (0.0-4.3) 07/28/18 07:34 Baso % (Auto) 0.8 % (0.0-1.8) 07/28/18 07:34 Lymph # 2.6 K/mm3 (1.2-5.4) 07/28/18 07:34 [place] # 0.8 K/mm3 (0.0-0.8) 07/28/18 07:34 Eos # 0.2 K/mm3 (0.0-0.4) 07/28/18 07:34 Baso # 0.0 K/mm3 (0.0-0.1) 07/28/18 07:34 Add Manual Diff Complete 07/27/18 06:58 Total Counted 100 07/27/18 06:58 Seg Neutrophils % 37.0 % (40.0-70.0) L 07/28/18 07:34 Seg Neuts % (Manual) 39.0 % (40.0-70.0) L 07/27/18 06:58 Band Neutrophils % 0 % 07/27/18 06:58 Lymphocytes % (Manual) 47.0 % (13.4-35.0) H 07/27/18 06:58 Reactive Lymphs % (Man) 0 % 07/27/18 06:58 Monocytes % (Manual) 8.0 % (0.0-7.3) H 07/27/18 06:58 Eosinophils % (Manual) 5.0 % (0.0-4.3) H 07/27/18 06:58 Basophils % (Manual) 1.0 % (0.0-1.8) 07/27/18 06:58 Metamyelocytes % 0 % 07/27/18 06:58 Myelocytes % 0 % 07/27/18 06:58 Promyelocytes % 0 % 07/27/18 06:58 Blast Cells % 0 % 07/27/18 06:58 Nucleated RBC % Not Reportable 07/27/18 06:58 Seg Neutrophils # 2.1 K/mm3 (1.8-7.7) 07/28/18 07:34 Seg Neutrophils # Man 2.4 K/mm3 (1.8-7.7) 07/27/18 06:58 Band Neutrophils # 0.0 K/mm3 07/27/18 06:58 Lymphocytes # (Manual) 2.9 K/mm3 (1.2-5.4) 07/27/18 06:58 Abs React Lymphs (Man) 0.0 K/mm3 07/27/18 06:58 Monocytes # (Manual) 0.5 K/mm3 (0.0-0.8) 07/27/18 06:58 Eosinophils # (Manual) 0.3 K/mm3 (0.0-0.4) 07/27/18 06:58 Basophils # (Manual) 0.1 K/mm3 (0.0-0.1) 07/27/18 06:58 Metamyelocytes # 0.0 K/mm3 07/27/18 06:58 Myelocytes # 0.0 K/mm3 07/27/18 06:58 Promyelocytes # 0.0 K/mm3 07/27/18 06:58 Blast Cells # 0.0 K/mm3 07/27/18 06:58 WBC Morphology Not Reportable 07/27/18 06:58 Hypersegmented Neuts Not Reportable 07/27/18 06:58 Hyposegmented Neuts Not Reportable 07/27/18 06:58 Hypogranular Neuts Not Reportable 07/27/18 06:58 Smudge Cells Not Reportable 07/27/18 06:58 Toxic Granulation Not Reportable 07/27/18 06:58 Toxic Vacuolation Not Reportable 07/27/18 06:58 Dohle Bodies Not Reportable 07/27/18 06:58 Pelger-Huet Anomaly Not Reportable 07/27/18 06:58 Dileep Rods Not Reportable 07/27/18 06:58 Platelet Estimate Cons 07/27/18 06:58 Clumped Platelets Not Reportable 07/27/18 06:58 Plt Clumps, EDTA Not Reportable 07/27/18 06:58 Large Platelets Not Reportable 07/27/18 06:58 Giant Platelets Not Reportable 07/27/18 06:58 Platelet Satelliting Not Reportable 07/27/18 06:58 Plt Morphology Comment Not Reportable 07/27/18 06:58 RBC Morphology Not Reportable 07/27/18 06:58 Dimorphic RBCs Not Reportable 07/27/18 06:58 Polychromasia Not Reportable 07/27/18 06:58 Hypochromasia Not Reportable 07/27/18 06:58 Poikilocytosis Not Reportable 07/27/18 06:58 Anisocytosis 1+ 07/27/18 06:58 Microcytosis Not Reportable 07/27/18 06:58 Macrocytosis Not Reportable 07/27/18 06:58 Spherocytes Not Reportable 07/27/18 06:58 Pappenheimer Bodies Not Reportable 07/27/18 06:58 Sickle Cells Not Reportable 07/27/18 06:58 Target Cells Not Reportable 07/27/18 06:58 Tear Drop Cells Not Reportable 07/27/18 06:58 Ovalocytes Not Reportable 07/27/18 06:58 Helmet Cells Not Reportable 07/27/18 06:58 [place] Bodies Not Reportable 07/27/18 06:58 [place] Rings Not Reportable 07/27/18 06:58 [place] Cells Not Reportable 07/27/18 06:58 Bite Cells Not Reportable 07/27/18 06:58 Crenated Cell Not Reportable 07/27/18 06:58 Elliptocytes Not Reportable 07/27/18 06:58 Acanthocytes (Spur) Not Reportable 07/27/18 06:58 Rouleaux Not Reportable 07/27/18 06:58 Hemoglobin C Crystals Not Reportable 07/27/18 06:58 Schistocytes Not Reportable 07/27/18 06:58 Malaria parasites Not Reportable 07/27/18 06:58 Aníbal Bodies Not Reportable 07/27/18 06:58 Hem Pathologist Commnt No 07/27/18 06:58 PT 14.0 Sec. (12.2-14.9) 07/24/18 20:25 INR 1.02 (0.87-1.13) 07/24/18 20:25 APTT 34.8 Sec. (24.2-36.6) 07/24/18 20:25 Sodium 136 mmol/L (137-145) L 07/28/18 07:34 Potassium 4.2 mmol/L (3.6-5.0) 07/28/18 07:34 Chloride 99.0 mmol/L (98-107) 07/28/18 07:34 Carbon Dioxide 25 mmol/L (22-30) 07/28/18 07:34 Anion Gap 16 mmol/L 07/28/18 07:34 BUN 40 mg/dL (9-20) H 07/28/18 07:34 Creatinine 2.9 mg/dL (0.8-1.5) H 07/28/18 07:34 Estimated GFR 30 ml/min 07/28/18 07:34 BUN/Creatinine Ratio 14 % 07/28/18 07:34 Glucose 97 mg/dL (75-100) 07/28/18 07:34 Calcium 8.2 mg/dL (8.4-10.2) L 07/28/18 07:34 Phosphorus 4.00 mg/dL (2.5-4.5) 07/28/18 07:34 Total Creatine Kinase 534 units/L (55-170) H 07/25/18 05:10 CK-MB (CK-2) 7.2 ng/mL (0.0-4.0) H 07/25/18 05:10 CK-MB (CK-2) Rel Index 1.3 (0-4) 07/25/18 05:10 Troponin T 0.042 ng/mL (0.00-0.029) H D 07/25/18 05:10 Triglycerides 94 mg/dL (2-149) 07/24/18 20:25 Cholesterol 180 mg/dL (50-199) 07/24/18 20:25 LDL Cholesterol Direct 154 mg/dL (50-130) H 07/24/18 20:25 HDL Cholesterol 35 mg/dL (40-59) L 07/24/18 20:25 Cholesterol/HDL Ratio 5.14 % 07/24/18 20:25 Urine Color Yellow (Yellow) 07/26/18 14:30 Urine Turbidity Clear (Clear) 07/26/18 14:30 Urine pH 5.0 (5.0-7.0) 07/26/18 14:30 Ur Specific [place] 1.009 (1.003-1.030) 07/26/18 14:30 Urine Protein 100 mg/dl mg/dL (Negative) 07/26/18 14:30 Urine Glucose (UA) Neg mg/dL (Negative) 07/26/18 14:30 Urine Ketones Neg mg/dL (Negative) 07/26/18 14:30 Urine Blood Neg (Negative) 07/26/18 14:30 Urine Nitrite Neg (Negative) 07/26/18 14:30 Urine Bilirubin Neg (Negative) 07/26/18 14:30 Urine Urobilinogen < 2.0 mg/dL (<2.0) 07/26/18 14:30 Ur Leukocyte Esterase Neg (Negative) 07/26/18 14:30 Urine WBC (Auto) 1.0 /HPF (0.0-6.0) 07/26/18 14:30 Urine RBC (Auto) 2.0 /HPF (0.0-6.0) 07/26/18 14:30 U Epithel Cells (Auto) < 1.0 /HPF (0-13.0) 07/26/18 14:30 Urine Bacteria (Auto) 1+ /HPF (Negative) 07/26/18 14:30 Urine Mucus Few /HPF 07/26/18 14:30 Urine Creatinine 291.7 mg/dL (0.1-20.0) H 07/27/18 09:40 Urine Microalbumin 179.2 mg/dL (0.1-34.0) H 07/27/18 09:40 Microalb/Creat Ratio 614.3 ug/mg 07/27/18 09:40 Urine Sodium 81 mmol/L 07/26/18 14:30 Urine Urea Nitrogen 234 07/26/18 14:30 Urine Total Protein 284 mg/dL (5-11.8) H 07/27/18 09:40 Active Medications - Current Medications Current Medications: Generic Name Dose Route Start Last Admin Trade Name Freq PRN Reason Stop Dose Admin Acetaminophen 650 mg 07/24/18 22:58 07/27/18 21:23 Tylenol PO 650 mg Q4H PRN Administration Pain MILD(1-3)/Fever >100.5/BAHENA Amlodipine Besylate 10 mg 07/25/18 10:00 07/28/18 09:22 Norvasc PO 10 mg QDAY AYESHA Administration Aspirin 81 mg 07/25/18 10:00 07/28/18 09:21 Baby Aspirin PO 81 mg QDAY AYESHA Administration Clonidine HCl 0.3 mg 07/27/18 10:00 07/28/18 09:21 Catapres PO 0.3 mg Q8H AYESHA Administration Enoxaparin Sodium 30 mg 07/25/18 10:00 07/28/18 09:22 Lovenox SUB-Q 30 mg QDAY AYESHA Administration Hydralazine HCl 10 mg 07/25/18 10:00 07/27/18 19:55 Apresoline IV 10 mg Q4HR PRN Administration SBP>170 or DBP>110 Hydralazine HCl 50 mg 07/26/18 14:00 07/28/18 05:54 Apresoline PO 50 mg Q8HR AYESHA Administration Metoprolol Tartrate 50 mg 07/25/18 12:00 07/28/18 05:54 Lopressor PO 50 mg Q6H AYESHA Administration Ondansetron HCl 4 mg 07/24/18 22:58 07/25/18 11:07 Zofran IV 4 mg Q4H PRN Administration Nausea And Vomiting Oxycodone/Acetaminophen 1 tab 07/24/18 22:58 07/28/18 09:22 Percocet 5/325 PO 1 tab Q6H PRN Administration Pain, Moderate (4-6) Sodium Chloride 10 ml 07/25/18 10:00 07/28/18 09:23 Sodium Chloride Flush Syringe 10 Ml IV 10 ml BID AYESHA Administration Sodium Chloride 10 ml 07/24/18 22:58 Sodium Chloride Flush Syringe 10 Ml IV PRN PRN LINE FLUSH
[2018-07-28] MEDS: APRESOLINE IV PRN (13:06)
[2018-07-28] MEDS: TYLENOL PO PRN (13:11)
[2018-07-28 13:59] VITALS: BP 148/82
--- NOTE | 2018-07-28 14:25 | Discharge Summary ---
Providers - Providers Date of Admission: 07/24/18 22:42 Date of discharge: 07/28/18 Attending physician: ELANA BEAUCHAMP 07/24/18 22:58 Consult to Physician [CONS] Routine Comment: Consulting Provider: TAMI SEVILLA Physician Instructions: Reason For Exam: chf/cp 07/25/18 15:24 Consult to Physician [CONS] Routine Comment: Consulting Provider: TONY HOPKINS Physician Instructions: Reason For Exam: Acute on chronic renal failure Primary care physician: [facility] JOSE CARLOS DELATORRE MD Hospitalization Condition: Fair Hospital course: Patient is 33-year-old with a history of hypertension, CHF, gout, status post aortic dissection repair. He presented to ED with complaints of chest pain and shortness of breath. He was seen and evaluated in ED and diagnosed with acute respiratory failure secondary to CHF exacerbation. He was also diagnosed with acute on chronic kidney disease. He was started on Lasix IV and admitted. Patient was evaluated by cardiology and nephrology. Nir improved in a few days. However, his blood pressure was elevated - hypertensive emergency. Antihypertensive medications were increased. BP eventually improved, shortness of breath resolved he was discharged home on 07/26/2018 to follow as outpatient. Total time spent on discharge, 32 mins Disposition: [id number] TO HOME OR SELFCARE - Discharge Diagnoses (1) S/P aortic dissection repair Status: Chronic (2) Acute on chronic diastolic (congestive) heart failure Status: Acute (3) Acute on chronic kidney failure Status: Acute (4) Hypertensive emergency Status: Acute (5) Morbid obesity with BMI of 40.0-44.9, adult Status: Acute (6) Chest pain Status: Acute Core Measure Documentation - Palliative Care Palliative Care/ Comfort Measures: Not Applicable - Core Measures Any of the following diagnoses?: heart failure - Heart Failure Discharge Requirements AYLIN/ARB for LVSD if EF <40%: No Reason for no AYLIN/ARB: Renal impairment Beta khoi at discharge: Yes Exam - Constitutional Vitals: Temp Pulse Resp BP Pulse Ox 98.1 F 66 18 148/82 95 07/28/18 09:53 07/28/18 13:58 07/28/18 13:58 07/28/18 13:58 07/28/18 09:53 Plan Activity: advance as tolerated Diet: low fat, low cholesterol, low salt, renal Additional Instructions: 1.Follow up with PCP or [facility] in 1 week. 2.Follow up with Dr. Marley Sevilla in 1 week. 3.Follow up with nephrology at [place] as scheduled in 1 week Follow up with: LING POOLE MD [Staff Physician] - 3-5 Days Prescriptions: Aspirin EC [Aspirin Enteric Coated TAB] 81 mg PO QDAY #30 tablet. cloNIDine [Catapres] 0.2 mg PO TID 30 Days tablet Hydralazine HCl 50 mg PO TID #90 tablet amLODIPine [Norvasc] 10 mg PO QDAY #30 tablet
== END 2018-07-28 17:04 | disposition home or self-care (01) | DRG 682 ==
LOC: ED 18:54 → 4A 22:42
PROVIDERS: ADMIT Internal Medicine; ATTEND Internal Medicine
DX: N17.9 Acute kidney failure, unspecified (principal); J96.01 Acute respiratory failure with hypoxia; I50.43 Acute on chronic combined systolic (congestive) and diastolic (congestive) heart failure; I16.1 Hypertensive emergency; I13.0 Hypertensive heart and chronic kidney disease with heart failure and stage 1 through stage 4 chronic kidney disease, or unspecified chronic kidney disease; I16.0 Hypertensive urgency; N18.9 Chronic kidney disease, unspecified; M10.9 Gout, unspecified; Z82.49 Family history of ischemic heart disease and other diseases of the circulatory system
CPT/HCPCS: 36415; 70450; 71045; 80048; 80061; 81001; 82043; 82550; 82553; 84100; 84156; 84300; 84484; 84520; 85007; 85025; 85027; 85610; 85730; 93005; 93010; 93306; 96374; 96375; 99285; G0378; J0360; J1650; J1940; J2405; J3010

== ENCOUNTER 2018-11-12 02:13 | Emergency (ER) | payer MEDICAID ==
[2018-11-12] MEDS ORDERED: ASPIRIN PO ONE (02:57)
[2018-11-12] MEDS ORDERED: NITRO-BID 2% TP ONE (02:57)
[2018-11-12] MEDS ORDERED: TYLENOL PO ONE (02:58)
[2018-11-12] MEDS ORDERED: LASIX IV ONE (02:58)
--- NOTE | 2018-11-12 03:19 | XRay Report ---
CHEST 1 VIEW INDICATION / CLINICAL INFORMATION: Chest Pain. COMPARISON: None available. FINDINGS: SUPPORT DEVICES: None. HEART / MEDIASTINUM: Mild enlargement of the cardiac silhouette LUNGS / PLEURA: No significant pulmonary or pleural abnormality. No pneumothorax. ADDITIONAL FINDINGS: No significant additional findings. IMPRESSION: 1. Mild cardiomegaly with no acute pulmonary disease Signer Name: Fidel Staley MD Signed: 11/12/2018 3:14 AM Workstation Name: [id number]
[2018-11-12 03:24] LABS: Basophils # (Auto) 0.1 K/mm3 (0.0-0.1); Basophils % (Auto) 1.1 % (0.0-1.8); Eosinophils # (Auto) 0.5 K/mm3 (0.0-0.4); Eosinophils % (Auto) 8.1 % (0.0-4.3); Hematocrit 39.3 % (35.5-45.6); Hemoglobin 12.9 gm/dl (11.8-15.2); Lymphocytes # (Auto) 1.2 K/mm3 (1.2-5.4); Lymphocytes % (Auto) 22.4 % (13.4-35.0); Mean Corpuscular HGB Conc 33 % (32-34); Mean Corpuscular Volume 86 fl (84-94); Monocytes # (Auto) 0.6 K/mm3 (0.0-0.8); Monocytes % (Auto) 10.6 % (0.0-7.3); Platelet Count 162 K/mm3 (140-440); Red Blood Count 4.56 M/mm3 (3.65-5.03); Red Cell Distribution Width 17.2 % (13.2-15.2)
--- NOTE | 2018-11-12 04:06 | Emergency Department Report ---
ED Chest Pain HPI - General Chief Complaint: Chest Pain Stated Complaint: CHEST PAIN Time Seen by Provider: 11/12/18 02:26 Source: EMS Mode of arrival: Ambulatory Limitations: No Limitations - History of Present Illness Initial Comments: Mr. Jaimes is a 33-year-old male with history of chest pain, renal insufficiency, severe hypertension, elevated troponin, aortic dissection status post repair, chronic diastolic heart failure, morbid obesity who presents with chest pain in his axilla. Patient has been sharp. Pain has been persistent all throughout the day. No association with cough shortness of breath or exertion. Pain is persistent at rest. His PCP is Dr. Lane at [place]. He arrived per EMS. Has been compliant with all his medications. Earlier this year he was admitted to the hospitalist josef for chest pain. MD Complaint: chest pain -: Gradual, days(s) (1), This morning Onset: during rest Pain Location: other (left axilla) Pain Radiation: none Severity: mild Severity scale (0 -10): 6 Quality: sharp Consistency: constant Improves With: nothing Worsens With: nothing Treatments Prior to Arrival: none - Related Data Home Medications Medication Instructions Recorded Confirmed Last Taken Coreg 25 mg PO DAILY 07/25/18 07/25/18 07/23/18 Allopurinol [Zyloprim] 300 mg PO QDAY 07/28/18 07/28/18 Unknown Bumetanide [Bumex 1 mg tab] 2 mg PO DAILY 07/28/18 07/28/18 Unknown Colchicine [Mitigare] 0.6 mg PO DAILY 07/28/18 07/28/18 Unknown Losartan [Cozaar] 100 mg PO QDAY 07/28/18 07/28/18 Unknown Previous Rx's Medication Instructions Recorded Last Taken Type Aspirin EC 81 mg PO QDAY #30 tablet. 07/28/18 Unknown Rx Hydralazine HCl 50 mg PO TID #90 tablet 07/28/18 Unknown Rx amLODIPine [Norvasc] 10 mg PO QDAY #30 tablet 07/28/18 Unknown Rx cloNIDine [Catapres] 0.2 mg PO TID 30 Days tablet 07/28/18 Unknown Rx Allergies Allergy/AdvReac Type Severity Reaction Status Date / Time aspirin Allergy Bleeding Verified 11/12/18 03:21 Heart Score - HEART Score History: Slightly suspicious EKG: Normal Age: 45-65 Risk factors: > 3 risk factors or hx of atherosclerotic disease Troponin: < normal limit HEART Score: 3 ED Review of Systems ROS: Stated complaint: CHEST PAIN Other details as noted in HPI Comment: All other systems reviewed and negative Constitutional: denies: fever, malaise Respiratory: denies: cough Cardiovascular: chest pain ED Past Medical Hx - Past Medical History Previous Medical History?: Yes Hx Hypertension: Yes Hx Congestive Heart Failure: Yes Hx Diabetes: No Hx Asthma: No Hx COPD: No Additional medical history: Aortic Dissection, Gout - Surgical History Hx Open Heart Surgery: Yes Additional Surgical History: Aortic valve replacecment (porcine) - Social History Smoking Status: Never Smoker Substance Use Type: None - Medications Home Medications: Home Medications Medication Instructions Recorded Confirmed Last Taken Type Coreg 25 mg PO DAILY 07/25/18 07/25/18 07/23/18 History Allopurinol [Zyloprim] 300 mg PO QDAY 07/28/18 07/28/18 Unknown History Aspirin EC 81 mg PO QDAY #30 tablet. 07/28/18 Unknown Rx Bumetanide [Bumex 1 mg tab] 2 mg PO DAILY 07/28/18 07/28/18 Unknown History Colchicine [Mitigare] 0.6 mg PO DAILY 07/28/18 07/28/18 Unknown History Hydralazine HCl 50 mg PO TID #90 tablet 07/28/18 Unknown Rx Losartan [Cozaar] 100 mg PO QDAY 07/28/18 07/28/18 Unknown History amLODIPine [Norvasc] 10 mg PO QDAY #30 tablet 07/28/18 Unknown Rx cloNIDine [Catapres] 0.2 mg PO TID 30 Days tablet 07/28/18 Unknown Rx ED Physical Exam - General Limitations: No Limitations General appearance: alert, in no apparent distress, other (sleeping comfortably, easily arousible) - Head Head exam: Present: atraumatic, normocephalic - Eye Eye exam: Present: normal appearance - ENT ENT exam: Present: mucous membranes moist - Neck Neck exam: Present: normal inspection, full ROM - Respiratory Respiratory exam: Present: normal lung sounds bilaterally, other (sternotomy scar). Absent: respiratory distress, wheezes, rales, rhonchi - Cardiovascular Cardiovascular Exam: Present: regular rate, normal rhythm, normal heart sounds. Absent: systolic murmur, diastolic murmur, rubs, gallop - GI/Abdominal GI/Abdominal exam: Present: soft, normal bowel sounds. Absent: distended, tenderness, guarding, rebound - Rectal Rectal exam: Present: deferred - Extremities Exam Extremities exam: Present: normal inspection - Back Exam Back exam: Present: normal inspection - Neurological Exam Neurological exam: Present: alert, oriented X3 - Psychiatric Psychiatric exam: Present: normal affect, normal mood - Skin Skin exam: Present: warm, dry, intact, normal color. Absent: rash ED Course Vital Signs 11/12/18 11/12/18 11/12/18 02:31 03:30 03:46 Temperature 98.6 F Pulse Rate 74 69 68 Respiratory 13 26 H 24 Rate Blood Pressure 119/72 119/72 119/72 O2 Sat by Pulse 98 94 91 Oximetry 11/12/18 11/12/18 11/12/18 04:00 04:16 04:30 Temperature Pulse Rate 70 69 73 Respiratory 24 23 21 Rate Blood Pressure 126/74 126/74 126/74 O2 Sat by Pulse 91 90 Oximetry 11/12/18 11/12/18 11/12/18 04:46 05:00 05:16 Temperature Pulse Rate 71 69 71 Respiratory 24 18 20 Rate Blood Pressure 126/74 125/77 125/77 O2 Sat by Pulse 89 92 96 Oximetry ED Medical Decision Making - Lab Data Result diagrams: 11/12/18 03:11 11/12/18 03:11 Laboratory Results - last 24 hr 11/12/18 11/12/18 03:11 03:11 WBC 5.6 RBC 4.56 Hgb 12.9 Hct 39.3 MCV 86 MCH 28 MCHC 33 RDW 17.2 H Plt Count 162 Lymph % (Auto) 22.4 [place] % (Auto) 10.6 H Eos % (Auto) 8.1 H Baso % (Auto) 1.1 Lymph # 1.2 [place] # 0.6 Eos # 0.5 H Baso # 0.1 Seg Neutrophils % 57.8 Seg Neutrophils # 3.2 Sodium 140 Potassium 4.0 Chloride 105.3 Carbon Dioxide 24 Anion Gap 15 BUN 39 H Creatinine 2.8 H Estimated GFR 32 BUN/Creatinine Ratio 14 Glucose 107 H Calcium 8.7 Total Bilirubin 0.70 AST 24 ALT 7 Alkaline Phosphatase 79 Troponin T 0.024 Total Protein 7.2 Albumin 2.9 L Albumin/Globulin Ratio 0.7 - EKG Data 11/12/18 04:04 EKG obtained 0254 Normal sinus rhythm rate 65 beats a minute prolonged AK interval left axis deviation no ST elevation EKG is unchanged from 07/24/2018 - Radiology Data Radiology results: report reviewed - Medical Decision Making Mr. Ordaz presents with an atypical chest pain in the left axilla. He is actually quite comfortable here in the ED. Normal vital signs. Heart rate 70. Blood pressure 119/72. I do not suspect pulmonary embolism, pneumothorax, dissection, ACS. He is discharged home in stable condition. Troponin 2 within normal limits. Critical care attestation.: If time is entered above; I have spent that time in minutes in the direct care of this critically ill patient, excluding procedure time. ED Disposition Clinical Impression: Chest pain, Renal insufficiency, Acute heart failure with preserved ejection fraction Disposition: - TO HOME OR SELFCARE Is pt being admited?: No Does the pt Need Aspirin: No Condition: Stable Instructions: Chest Pain (ED) Referrals: ALFA JOYA MD [Primary Care Provider] - 3-5 Days PRIMARY MD LITO [Referring] - 3-5 Days
[2018-11-12 05:01] LABS: Albumin 2.9 g/dL (3.9-5); Calcium 8.7 mg/dL (8.4-10.2)
[2018-11-12 06:19] VITALS: BP 132/73
== END 2018-11-12 07:01 | disposition home or self-care (01) ==
LOC: ED 02:13
DX: I50.31 Acute diastolic (congestive) heart failure (principal); I11.0 Hypertensive heart disease with heart failure; M10.9 Gout, unspecified; Z98.890 Other specified postprocedural states; Z79.899 Other long term (current) drug therapy; Z88.6 Allergy status to analgesic agent; Z88.8 Allergy status to other drugs, medicaments and biological substances
CPT/HCPCS: 36415; 71045; 80053; 84484; 85025; 93005; 93010; 96374; 99285; J1940

== ENCOUNTER 2018-11-16 18:07 | Inpatient (IN) | payer MEDICAID ==
--- NOTE | 2018-11-16 19:26 | Emergency Department Report ---
ED General Adult HPI - General Chief complaint: Chest Pain Stated complaint: SOB Time Seen by Provider: 11/16/18 19:03 Source: patient, EMS Mode of arrival: Stretcher Limitations: No Limitations - History of Present Illness Initial comments: The patient presents to the emergency department with a chief complaint of increased swelling of his lower extremities and abdomen. Patient has a history of congestive heart failure and states that he missed the home is no longer working. Patient complains increased shortness of breath with exertion and orthopnea. Patient states he takes 2 mg of Bumex twice a day. Patient does report having actively surgery 2 years ago but denies any current chest pain. -: Gradual Severity scale (0 -10): 0 Improves with: none Worsens with: none Associated Symptoms: denies other symptoms Treatments Prior to Arrival: none - Related Data Home Medications Medication Instructions Recorded Confirmed Last Taken Allopurinol [Zyloprim] 0.5 tab PO QDAY 11/16/18 11/16/18 Unknown Bumetanide [Bumetanide 2 mg tab] 2 mg PO BID 11/16/18 11/16/18 Unknown Carvedilol [Coreg] 25 mg PO BID 11/16/18 11/16/18 Unknown Clonidine HCl [Catapres] 1 tab PO Q12HR 11/16/18 11/16/18 Unknown Hydralazine HCl 50 mg PO Q8HR 11/16/18 11/16/18 Unknown NIFEdipine [Nifedipine ER] 60 mg PO DAILY 11/16/18 11/16/18 Unknown Allergies Allergy/AdvReac Type Severity Reaction Status Date / Time AYLIN Inhibitors Allergy Unknown Verified 11/16/18 20:37 aspirin Allergy Bleeding Verified 11/12/18 03:21 ED Review of Systems ROS: Stated complaint: SOB Other details as noted in HPI Comment: All other systems reviewed and negative Constitutional: denies: chills, fever Eyes: denies: eye pain, eye discharge, vision change ENT: denies: ear pain, throat pain Respiratory: shortness of breath. denies: cough, wheezing Cardiovascular: denies: chest pain, palpitations Endocrine: no symptoms reported Gastrointestinal: denies: abdominal pain, nausea, diarrhea Genitourinary: denies: urgency, dysuria Musculoskeletal: other (edema). denies: back pain, joint swelling, arthralgia Skin: denies: rash, lesions Neurological: denies: headache, weakness, paresthesias Psychiatric: denies: anxiety, depression Hematological/Lymphatic: denies: easy bleeding, easy bruising ED Past Medical Hx - Past Medical History Hx Hypertension: Yes Hx Congestive Heart Failure: Yes Hx Diabetes: No Hx Asthma: No Hx COPD: No Additional medical history: Aortic Dissection, Gout - Surgical History Hx Open Heart Surgery: Yes Additional Surgical History: Aortic valve replacecment (porcine) - Social History Smoking Status: Never Smoker Substance Use Type: None - Medications Home Medications: Home Medications Medication Instructions Recorded Confirmed Last Taken Type Allopurinol [Zyloprim] 0.5 tab PO QDAY 11/16/18 11/16/18 Unknown History Bumetanide [Bumetanide 2 mg tab] 2 mg PO BID 11/16/18 11/16/18 Unknown History Carvedilol [Coreg] 25 mg PO BID 11/16/18 11/16/18 Unknown History Clonidine HCl [Catapres] 1 tab PO Q12HR 11/16/18 11/16/18 Unknown History Hydralazine HCl 50 mg PO Q8HR 11/16/18 11/16/18 Unknown History NIFEdipine [Nifedipine ER] 60 mg PO DAILY 11/16/18 11/16/18 Unknown History ED Physical Exam - General Limitations: No Limitations General appearance: alert, in no apparent distress - Head Head exam: Present: atraumatic, normocephalic - Eye Eye exam: Present: normal appearance, PERRL, EOMI - ENT ENT exam: Present: mucous membranes moist - Neck Neck exam: Present: normal inspection - Respiratory Respiratory exam: Present: normal lung sounds bilaterally. Absent: respiratory distress - Cardiovascular Cardiovascular Exam: Present: regular rate, normal rhythm. Absent: systolic murmur, diastolic murmur, rubs, gallop - GI/Abdominal GI/Abdominal exam: Present: soft, distended (pitting edema), normal bowel sounds. Absent: tenderness - Rectal Rectal exam: Present: deferred - Extremities Exam Extremities exam: Present: other (pitting edema) - Back Exam Back exam: Present: normal inspection - Neurological Exam Neurological exam: Present: alert, oriented X3, CN II-XII intact. Absent: motor sensory deficit - Psychiatric Psychiatric exam: Present: normal affect, normal mood - Skin Skin exam: Present: warm, dry, intact, normal color. Absent: rash ED Course Vital Signs 11/16/18 11/16/18 11/16/18 19:00 19:01 19:12 Temperature 98 F Pulse Rate 75 76 Respiratory 18 26 H 15 Rate Blood Pressure 253/174 Blood Pressure 241/158 [Left] O2 Sat by Pulse 99 98 100 Oximetry 11/16/18 11/16/18 19:50 20:00 Temperature Pulse Rate 75 79 Respiratory 15 Rate Blood Pressure 225/152 227/156 Blood Pressure [Left] O2 Sat by Pulse 98 Oximetry ED Medical Decision Making - Lab Data Result diagrams: 11/16/18 19:30 11/16/18 19:30 Lab Results 11/16/18 11/16/18 11/16/18 Range/Units 19:30 19:30 19:30 WBC 5.4 (4.5-11.0) K/mm3 RBC 4.87 (3.65-5.03) M/mm3 Hgb 13.7 (11.8-15.2) gm/dl Hct 43.0 (35.5-45.6) % MCV 88 (84-94) fl MCH 28 (28-32) pg MCHC 32 (32-34) % RDW 18.6 H (13.2-15.2) % Plt Count 170 (140-440) K/mm3 Lymph % (Auto) 17.9 (13.4-35.0) % [place] % (Auto) 9.5 H (0.0-7.3) % Eos % (Auto) 9.5 H (0.0-4.3) % Baso % (Auto) 0.8 (0.0-1.8) % Lymph # 1.0 L (1.2-5.4) K/mm3 [place] # 0.5 (0.0-0.8) K/mm3 Eos # 0.5 H (0.0-0.4) K/mm3 Baso # 0.0 (0.0-0.1) K/mm3 Seg Neutrophils % 62.3 (40.0-70.0) % Seg Neutrophils # 3.3 (1.8-7.7) K/mm3 PT 13.7 (12.2-14.9) Sec. INR 1.08 (0.87-1.13) APTT 24.1 L (24.2-36.6) Sec. Sodium 140 (137-145) mmol/L Potassium 4.9 D (3.6-5.0) mmol/L Chloride 105.9 (98-107) mmol/L Carbon Dioxide 22 (22-30) mmol/L Anion Gap 17 mmol/L BUN 35 H (9-20) mg/dL Creatinine 2.4 H (0.8-1.5) mg/dL Estimated GFR 38 ml/min BUN/Creatinine Ratio 15 % Glucose 83 (75-100) mg/dL Calcium 8.4 (8.4-10.2) mg/dL Total Bilirubin 0.70 (0.1-1.2) mg/dL AST 33 (5-40) units/L ALT 10 (7-56) units/L Alkaline Phosphatase 99 (35-129) units/L Troponin T 0.022 (0.00-0.029) ng/mL NT-Pro-B Natriuret Pep (0-450) pg/mL Total Protein 7.7 (6.3-8.2) g/dL Albumin 3.0 L (3.9-5) g/dL Albumin/Globulin Ratio 0.6 % // Range/Units 19:30 WBC (4.5-11.0) K/mm3 RBC (3.65-5.03) M/mm3 Hgb (11.8-15.2) gm/dl Hct (35.5-45.6) % MCV (84-94) fl MCH (28-32) pg MCHC (32-34) % RDW (13.2-15.2) % Plt Count (140-440) K/mm3 Lymph % (Auto) (13.4-35.0) % [place] % (Auto) (0.0-7.3) % Eos % (Auto) (0.0-4.3) % Baso % (Auto) (0.0-1.8) % Lymph # (1.2-5.4) K/mm3 [place] # (0.0-0.8) K/mm3 Eos # (0.0-0.4) K/mm3 Baso # (0.0-0.1) K/mm3 Seg Neutrophils % (40.0-70.0) % Seg Neutrophils # (1.8-7.7) K/mm3 PT (12.2-14.9) Sec. INR (0.87-1.13) APTT (24.2-36.6) Sec. Sodium (137-145) mmol/L Potassium (3.6-5.0) mmol/L Chloride (98-107) mmol/L Carbon Dioxide (22-30) mmol/L Anion Gap mmol/L BUN (9-20) mg/dL Creatinine (0.8-1.5) mg/dL Estimated GFR ml/min BUN/Creatinine Ratio % Glucose (75-100) mg/dL Calcium (8.4-10.2) mg/dL Total Bilirubin (0.1-1.2) mg/dL AST (5-40) units/L ALT (7-56) units/L Alkaline Phosphatase (35-129) units/L Troponin T (0.00-0.029) ng/mL NT-Pro-B Natriuret Pep 5608 H (0-450) pg/mL Total Protein (6.3-8.2) g/dL Albumin (3.9-5) g/dL Albumin/Globulin Ratio % - EKG Data -: EKG Interpreted by Ga EKG shows normal: sinus rhythm Rate: normal - EKG Data Interpretation: nonspecific ST-T wave emy - Radiology Data Radiology results: report reviewed - Medical Decision Making Patient given IV lasix Discussed results with patient Given IV hydralazine Critical Care Time: Yes Critical care time in (mins) excluding proc time.: 35 Critical care attestation.: If time is entered above; I have spent that time in minutes in the direct care of this critically ill patient, excluding procedure time. ED Disposition Clinical Impression: Acute CHF (congestive heart failure) Disposition: DC- TO HOME OR SELFCARE Is pt being admited?: Yes Does the pt Need Aspirin: Yes Condition: Fair Referrals: PRIMARY CARE, [Primary Care Provider] - 3-5 Days
[2018-11-16] MEDS ORDERED: APRESOLINE IV ONE ×2 (19:31→21:02)
--- NOTE | 2018-11-16 19:44 | XRay Report ---
CHEST 1 VIEW INDICATION / CLINICAL INFORMATION: Chest Pain. COMPARISON: 11/12/2018 FINDINGS: SUPPORT DEVICES: None. HEART / MEDIASTINUM: Moderate cardiomegaly is stable with evidence of median sternotomy. LUNGS / PLEURA: No significant pulmonary or pleural abnormality. No pneumothorax. ADDITIONAL FINDINGS: Thoracic aorta is tortuous and mildly ectatic. IMPRESSION: 1. No acute findings. Signer Name: Froylan Obando MD Signed: 11/16/2018 7:40 PM Workstation Name: [id number]
[2018-11-16 19:51] LABS: Basophils % (Auto) 0.8 % (0.0-1.8); Eosinophils # (Auto) 0.5 K/mm3 (0.0-0.4); Eosinophils % (Auto) 9.5 % (0.0-4.3); Hemoglobin 13.7 gm/dl (11.8-15.2); Lymphocytes % (Auto) 17.9 % (13.4-35.0); Mean Corpuscular HGB Conc 32 % (32-34); Mean Corpuscular Volume 88 fl (84-94); Monocytes # (Auto) 0.5 K/mm3 (0.0-0.8); Monocytes % (Auto) 9.5 % (0.0-7.3); Platelet Count 170 K/mm3 (140-440); Red Blood Count 4.87 M/mm3 (3.65-5.03); Red Cell Distribution Width 18.6 % (13.2-15.2)
[2018-11-16 20:05] LABS: INR 1.08 (0.87-1.13); Partial Thromboplastin Time 24.1 Sec. (24.2-36.6)
[2018-11-16 20:09] LABS: Calcium 8.4 mg/dL (8.4-10.2)
[2018-11-16] MEDS ORDERED: LASIX 80 MG in NACL 0.9% 50 ML IV ONE (20:35)
[2018-11-16] MEDS ORDERED: SODIUM CHLORIDE FLUSH SYRINGE 10 ML IV PRN (21:42)
[2018-11-16] MEDS ORDERED: ZOFRAN IV PRN (21:42)
--- NOTE | 2018-11-16 21:46 | History and Physical Report ---
History of Present Illness Date of examination: 11/16/18 History of present illness: 33-year-old man with a history of hypertension, CHF, gout status post aortic dissection repair is emergency room with complaints of chest pain. Pain is in the left chest which he describes as a sharp pain, sometimes dull, intermittent between 30 minutes -2 hours, intensity 5/10, cannot identify exacerbating factors. Admits shortness of breath, dyspnea on exertion, swelling in his belly, states compliant with medications. No nausea vomiting Review of systems Constitutional: no weight loss, chills, fever Ears, eyes, nose, mouth and throat: no nasal congestion, no nasal discharge, no sinus pressure, no vision change, no red eye. Neck: No neck pain or rigidity. Cardiovascular: no palpitations, chest pain Respiratory: no cough Gastrointestinal: no hematochezia, abdominal pain Genitourinary : no frequency , no hematuria Musculoskeletal: no joint swelling or muscle ache Integumentary: no rash, no pruritis Neurological: no parathesias, no focal weakness Endocrine: no cold or heat intolerance, no polyuria or polydipsia Hematologic/Lymphatic: no easy bruising, no easy bleeding, no gland swelling Allergic/Immunologic: no urticaria, no angioedema. PAST MEDICAL HISTORY:hypertension, CHF, gout PAST SURGICAL HISTORY: Hernia repair, aortic dissection repair SOCIAL HISTORY: Denies alcohol, drugs, tobacco FAMILY HISTORY: Hypertension Medications and Allergies Allergies Allergy/AdvReac Type Severity Reaction Status Date / Time AYLIN Inhibitors Allergy Unknown Verified 11/16/18 20:37 aspirin Allergy Bleeding Verified 11/12/18 03:21 Home Medications Medication Instructions Recorded Confirmed Last Taken Type Allopurinol [Zyloprim] 0.5 tab PO QDAY 11/16/18 11/16/18 Unknown History Bumetanide [Bumetanide 2 mg tab] 2 mg PO BID 11/16/18 11/16/18 Unknown History Carvedilol [Coreg] 25 mg PO BID 11/16/18 11/16/18 Unknown History Clonidine HCl [Catapres] 1 tab PO Q12HR 11/16/18 11/16/18 Unknown History Hydralazine HCl 50 mg PO Q8HR 11/16/18 11/16/18 Unknown History NIFEdipine [Nifedipine ER] 60 mg PO DAILY 11/16/18 11/16/18 Unknown History Active Meds: Active Medications Acetaminophen (Tylenol) 650 mg PO Q4H PRN PRN Reason: Pain MILD(1-3)/Fever >100.5/BAHENA Enoxaparin Sodium (Lovenox) 30 mg SUB-Q QDAY AYESHA Nicardipine HCl 50 mg/ Sodium (Chloride) 250 mls @ 25 mls/hr IV TITR AYESHA; Protocol Ondansetron HCl (Zofran) 4 mg IV Q8H PRN PRN Reason: Nausea And Vomiting Sodium Chloride (Sodium Chloride Flush Syringe 10 Ml) 10 ml IV BID AYESHA Sodium Chloride (Sodium Chloride Flush Syringe 10 Ml) 10 ml IV PRN PRN PRN Reason: LINE FLUSH Exam - Physical Exam Narrative exam: General Apperance: The patient lying in bed, breathing comfortable HEENT: Normocephalic, atraumatic. Pupils equally round and reactive to light, EOMI, no sclericterus or JVD or thyromegaly or nodule. , no carotid bruit, mucous membranes moist, no exudate or erythema Heart: S1-S2, regular is rhythm Lungs: Clear bilaterally, breathing comfortable Abdomen: Positive bowel sounds, soft, nontender, nondistended, no organomegaly Extremities: No edema cyanosis clubbing Skin: no rash, nodule, warm and dry Neuro: cranial nerves 2-12 intact, speech is fluent, motor/sensory intact - Constitutional Vitals: Temp Pulse Resp BP Pulse Ox 98 F 84 19 228/134 100 11/16/18 19:12 11/16/18 21:41 11/16/18 21:41 11/16/18 21:41 11/16/18 21:41 Results - Labs CBC & Chem 7: 11/16/18 19:30 11/16/18 19:30 Labs: Abnormal lab results 11/16/18 11/16/18 11/16/18 Range/Units 19:30 19:30 19:30 RDW 18.6 H (13.2-15.2) % [place] % (Auto) 9.5 H (0.0-7.3) % Eos % (Auto) 9.5 H (0.0-4.3) % Lymph # 1.0 L (1.2-5.4) K/mm3 Eos # 0.5 H (0.0-0.4) K/mm3 APTT 24.1 L (24.2-36.6) Sec. BUN 35 H (9-20) mg/dL Creatinine 2.4 H (0.8-1.5) mg/dL NT-Pro-B Natriuret Pep (0-450) pg/mL Albumin 3.0 L (3.9-5) g/dL 11/16/18 Range/Units 19:30 RDW (13.2-15.2) % [place] % (Auto) (0.0-7.3) % Eos % (Auto) (0.0-4.3) % Lymph # (1.2-5.4) K/mm3 Eos # (0.0-0.4) K/mm3 APTT (24.2-36.6) Sec. BUN (9-20) mg/dL Creatinine (0.8-1.5) mg/dL NT-Pro-B Natriuret Pep 5608 H (0-450) pg/mL Albumin (3.9-5) g/dL Assessment and Plan Assessment hypertensive urgency, malignant Chronic CHF, systolic Chronic kidney disease gout Plan Start cardene drip Check cardfiac enzymes, consult critical care DVT prophylaxis
[2018-11-16] MEDS: CARDENE 50 MG in NACL 0.9% 250ML 230 ML IV SCH (22:00)
[2018-11-16] MEDS ORDERED: TYLENOL ONE (22:05)
[2018-11-16] MEDS: TYLENOL PO PRN (22:06)
[2018-11-16] MEDS: SODIUM CHLORIDE FLUSH SYRINGE 10 ML IV SCH (22:07)
[2018-11-16 22:28] LABS: Creatine Kinase MB 3.5 ng/mL (0.0-4.0)
[2018-11-16] MEDS ORDERED: MORPHINE IV ONE (23:18)
[2018-11-16] MEDS ORDERED: MORPHINE ONE (23:23)
[2018-11-16] MEDS ORDERED: ZOFRAN ONE (23:27)
[2018-11-17] MEDS: CARDENE 50 MG in NACL 0.9% 250ML 230 ML IV SCH ×2 (04:15→08:35)
[2018-11-17 04:25] LABS: Basophils # (Auto) 0.1 K/mm3 (0.0-0.1); Basophils % (Auto) 0.8 % (0.0-1.8); Eosinophils # (Auto) 0.4 K/mm3 (0.0-0.4); Eosinophils % (Auto) 5.2 % (0.0-4.3); Hematocrit 45.1 % (35.5-45.6); Hemoglobin 14.7 gm/dl (11.8-15.2); Lymphocytes % (Auto) 13.3 % (13.4-35.0); Mean Corpuscular HGB Conc 33 % (32-34); Mean Corpuscular Volume 87 fl (84-94); Monocytes # (Auto) 0.6 K/mm3 (0.0-0.8); Monocytes % (Auto) 8.2 % (0.0-7.3); Platelet Count 196 K/mm3 (140-440); Red Blood Count 5.19 M/mm3 (3.65-5.03); Red Cell Distribution Width 18.2 % (13.2-15.2)
[2018-11-17 04:43] LABS: Creatine Kinase MB 4.4 ng/mL (0.0-4.0)
[2018-11-17 04:45] LABS: Calcium 8.5 mg/dL (8.4-10.2)
[2018-11-17 05:08] LABS: Chol/HDL Ratio 3.51 %
[2018-11-17] MEDS ORDERED: LOVENOX SUB-Q SCH (10:00)
--- NOTE | 2018-11-17 11:16 | Consultation ---
History of Present Illness - Reason for Consult Consult date: 11/17/18 Hypertensive Urgency Requesting physician: SANDRA BERRY - History of Present Illness 33 y/o male with prior history of hypertension, aortic dissection with repair and bypass who presents to the ED with chest pain and shortness of breath. patient is very stoic and not much of a historian. States that he takes his medications daily and has not been out of them. Came to the ED on Sunday secon to increased LE edema. Per patient was treated in the ED and then sent home. Comes back yesterday with chest pain. Girlfriend at bedside. Denies any current chest pain. Just pain in legs and headache. Remainder is negative. Past History Past Medical History: heart failure, hypertension, other (chronic lymphedema) Past Surgical History: abd. aortic aneurysm repair Social history: no significant social history Medications and Allergies Allergies Allergy/AdvReac Type Severity Reaction Status Date / Time AYLIN Inhibitors Allergy Unknown Verified 11/16/18 20:37 aspirin Allergy Bleeding Verified 11/12/18 03:21 Home Medications Medication Instructions Recorded Confirmed Last Taken Type Allopurinol [Zyloprim] 0.5 tab PO QDAY 11/16/18 11/16/18 Unknown History Bumetanide [Bumetanide 2 mg tab] 2 mg PO BID 11/16/18 11/16/18 Unknown History Carvedilol [Coreg] 25 mg PO BID 11/16/18 11/16/18 Unknown History Clonidine HCl [Catapres] 1 tab PO Q12HR 11/16/18 11/16/18 Unknown History Hydralazine HCl 50 mg PO Q8HR 11/16/18 11/16/18 Unknown History NIFEdipine [Nifedipine ER] 60 mg PO DAILY 11/16/18 11/16/18 Unknown History Active Meds: Active Medications Acetaminophen (Tylenol) 650 mg PO Q4H PRN PRN Reason: Pain MILD(1-3)/Fever >100.5/BAHENA Last Admin: 11/16/18 22:06 Dose: 650 mg Documented by: Amlodipine Besylate (Norvasc) 10 mg PO QDAY AYESHA Bumetanide (Bumex) 1 mg IV BID@0600,1800 AYESHA Bumetanide (Bumex) 1 mg IV ONCE ONE Stop: 11/17/18 11:08 Carvedilol (Coreg) 25 mg PO BID AYESHA Clonidine HCl (Catapres) 0.2 mg PO Q12HR [facility] Enoxaparin Sodium (Lovenox) 40 mg SUB-Q QDAY@1000 AYESHA Nicardipine HCl 50 mg/ Sodium (Chloride) 250 mls @ 25 mls/hr IV TITR AYESHA; Prot ocol Last Titration: 11/17/18 09:00 Dose: 12.5 mg/hr, 62.5 mls/hr Documented by: Ondansetron HCl (Zofran) 4 mg IV Q8H PRN PRN Reason: Nausea And Vomiting Last Admin: 11/16/18 23:27 Dose: 4 mg Documented by: Oxycodone/Acetaminophen (Percocet 5/325) 1 tab PO Q4H PRN PRN Reason: Pain, Moderate (4-6) Sodium Chloride (Sodium Chloride Flush Syringe 10 Ml) 10 ml IV BID [facility] Last Admin: 11/16/18 22:07 Dose: 10 ml Documented by: Sodium Chloride (Sodium Chloride Flush Syringe 10 Ml) 10 ml IV PRN PRN PRN Reason: LINE FLUSH Review of Systems All systems: negative Exam - Constitutional Vitals: Temp Pulse Resp BP Pulse Ox 98 F 97 H 25 H 172/88 91 11/16/18 19:12 11/17/18 10:15 11/17/18 10:15 11/17/18 10:15 11/17/18 10:15 General appearance: Present: no acute distress, well-nourished, obese - EENT Eyes: Present: PERRL, EOM intact ENT: hearing intact, clear oral mucosa, dentition normal - Neck Neck: Present: supple, normal ROM - Respiratory Respiratory effort: normal Respiratory: bilateral: CTA - Cardiovascular Rhythm: regular Heart Sounds: Present: S1 & S2 - Extremities Extremities: abnormal (chronic lymphedema changes) Extremity abnormal: edema, pulses diminished - Abdominal General gastrointestinal: Present: soft, non-tender, non-distended Male genitourinary: Present: deferred - Rectal Rectal Exam: deferred - Psychiatric Psychiatric: appropriate mood/affect (flat affect) - Neurologic Neurologic: CNII-XII intact Results - Labs CBC & Chem 7: 11/17/18 04:13 11/17/18 04:13 Labs: Abnormal lab results 11/16/18 11/16/18 11/16/18 Range/Units 19:30 19:30 19:30 RBC (3.65-5.03) M/mm3 RDW 18.6 H (13.2-15.2) % Lymph % (Auto) (13.4-35.0) % [place] % (Auto) 9.5 H (0.0-7.3) % Eos % (Auto) 9.5 H (0.0-4.3) % Lymph # 1.0 L (1.2-5.4) K/mm3 Eos # 0.5 H (0.0-0.4) K/mm3 Seg Neutrophils % (40.0-70.0) % APTT 24.1 L (24.2-36.6) Sec. BUN 35 H (9-20) mg/dL Creatinine 2.4 H (0.8-1.5) mg/dL Glucose (75-100) mg/dL Total Creatine Kinase (55-170) units/L CK-MB (CK-2) (0.0-4.0) ng/mL Troponin T (0.00-0.029) ng/mL NT-Pro-B Natriuret Pep (0-450) pg/mL Albumin 3.0 L (3.9-5) g/dL Cholesterol (50-199) mg/dL LDL Cholesterol Direct (50-130) mg/dL 11/16/18 11/16/18 11/17/18 Range/Units 19:30 21:53 04:13 RBC 5.19 H (3.65-5.03) M/mm3 RDW 18.2 H (13.2-15.2) % Lymph % (Auto) 13.3 L (13.4-35.0) % [place] % (Auto) 8.2 H (0.0-7.3) % Eos % (Auto) 5.2 H (0.0-4.3) % Lymph # 1.0 L (1.2-5.4) K/mm3 Eos # (0.0-0.4) K/mm3 Seg Neutrophils % 72.5 H (40.0-70.0) % APTT (24.2-36.6) Sec. BUN (9-20) mg/dL Creatinine (0.8-1.5) mg/dL Glucose (75-100) mg/dL Total Creatine Kinase 272 H (55-170) units/L CK-MB (CK-2) (0.0-4.0) ng/mL Troponin T (0.00-0.029) ng/mL NT-Pro-B Natriuret Pep 5608 H (0-450) pg/mL Albumin (3.9-5) g/dL Cholesterol (50-199) mg/dL LDL Cholesterol Direct (50-130) mg/dL 11/17/18 Range/Units 04:13 RBC (3.65-5.03) M/mm3 RDW (13.2-15.2) % Lymph % (Auto) (13.4-35.0) % [place] % (Auto) (0.0-7.3) % Eos % (Auto) (0.0-4.3) % Lymph # (1.2-5.4) K/mm3 Eos # (0.0-0.4) K/mm3 Seg Neutrophils % (40.0-70.0) % APTT (24.2-36.6) Sec. BUN 32 H (9-20) mg/dL Creatinine 2.2 H (0.8-1.5) mg/dL Glucose 118 H (75-100) mg/dL Total Creatine Kinase 228 H (55-170) units/L CK-MB (CK-2) 4.4 H (0.0-4.0) ng/mL Troponin T 0.037 H D (0.00-0.029) ng/mL NT-Pro-B Natriuret Pep (0-450) pg/mL Albumin (3.9-5) g/dL Cholesterol 204 H (50-199) mg/dL LDL Cholesterol Direct 146 H (50-130) mg/dL - Imaging and Cardiology Chest x-ray: image reviewed (mild cardiomegaly but clear lung peña) Assessment and Plan 33 y/o male with hypertensive urgency and acute vs acute on chronic, vs chronic renal failure and chronic lymphedema 1. Will restart Clonidine BID, Coreg BID and started norvasc as this is the formulary equivalent for his nifidepine. held on hydralazine for now. Also changed bumex to IV. May even need to consider bumex drip. Will start to wean Cardene once PO meds administered. 2. Renal failure appears to be chronic as numbers are better than his prior admission in June but still elevated. has been admitted to [facility] before as well. Suggest renal ultrasound if not done in the past and will likely need renal follow up. 3. Wean FiO2 to off as tolerated for sats >88% 4. DVT prophylaxis 5. Cardiac fit diet CCT 31 minutes.
[2018-11-17] MEDS: CATAPRES PO SCH ×2 (11:47→21:00)
[2018-11-17] MEDS: COREG PO SCH ×2 (11:47→22:46)
[2018-11-17] MEDS: LOVENOX SUB-Q SCH (11:49)
[2018-11-17] MEDS: SODIUM CHLORIDE FLUSH SYRINGE 10 ML IV SCH ×2 (11:50→22:46)
[2018-11-17] MEDS: PERCOCET 5/325 PO PRN ×3 (11:50→22:45)
[2018-11-17] MEDS ORDERED: NORVASC PO SCH (12:00)
[2018-11-17] MEDS ORDERED: BUMEX IV ONE (12:00)
--- NOTE | 2018-11-17 13:05 | Progress Note ---
Assessment and Plan Assessment and plan: --Hypertensive emergency; present on admission Blood pressures on presentation to ED 253/174, 240/157,214/121 Patient received multiple IV antihypertensives, started on Cardene drip Patient's multiple antihypertensives resumed, blood pressures dropped a reasonable level Titrate and DC Cardene drip --Chest pain chest pain probably nonspecific, secondary to hypertensive emergency Serial cardiac enzymes, EKG, cardiology consult; --History of Aortic dissection repair --Acute on chronic diastolic congestive heart failure; Continue anti-failure medications, cardiology consult if needed --Nonspecific elevation of troponin; probably secondary to emergency Hypertensive cardiomyopathy, closely monitor Consults cardiology if needed --Chronic kidney disease; closely monitor renal function Avoid nephrotoxins, nephrology consult if needed --History of gout: Continue allopurinol --Morbid obesity; BMI 42.5 advised weight reduction and medically stable --DVT prophylaxis; Lovenox Monitor closely and adjust management as needed Plan of care reviewed with the patient and the family member at the bedside I also discussed with patient's nurse Critical care time 35 minutes If patient remains stable, may be transferred out of ICU to telemetry The high probability of a clinically significant, sudden or life threatening deterioration of the [CVS,Metabolic ,Renal,Rheumatology] system(s) required my full and direct attention, intervention and personal management. The aggregate critical care time was [35] minutes. This time is in addition to time spent performing ,reported procedures but includes the following: [x] Data Review and interpretation [x] Patient assessment and monitoring of vital signs [x] Documentation [x] Medication orders and management Plan of care is reviewed with the patient and his nurse History Interval history: Patient was admitted with hypertensive emergency on Cardene drip The patient started reasonable level, multiple antihypertensives added to the regimen Cardene drip titrated and discontinued Patient complains of generalized body pains, more pain medications Awake oriented 3 Vital signs reviewed Hospitalist Physical - Constitutional Vitals: Temp Pulse Resp BP Pulse Ox 98 F 96 H 20 168/86 95 11/16/18 19:12 11/17/18 11:47 11/17/18 11:50 11/17/18 11:47 11/17/18 11:15 General appearance: Present: no acute distress, well-nourished, obese - EENT Eyes: Present: PERRL, EOM intact - Neck Neck: Present: supple, normal ROM - Respiratory Respiratory effort: normal Respiratory: bilateral: diminished, negative: rales, rhonchi, wheezing - Cardiovascular Rhythm: regular Heart Sounds: Present: S1 & S2 - Extremities Extremities: no ischemia, No edema - Abdominal General gastrointestinal: soft, non-tender, non-distended, normal bowel sounds - Integumentary Integumentary: Present: clear, warm - Psychiatric Psychiatric: appropriate mood/affect, cooperative - Neurologic Neurologic: CNII-XII intact, moves all extremities Results - Labs CBC & Chem 7: 11/17/18 04:13 11/17/18 04:13 Labs: Laboratory Last Values WBC 7.2 K/mm3 (4.5-11.0) 11/17/18 04:13 RBC 5.19 M/mm3 (3.65-5.03) H 11/17/18 04:13 Hgb 14.7 gm/dl (11.8-15.2) 11/17/18 04:13 Hct 45.1 % (35.5-45.6) 11/17/18 04:13 MCV 87 fl (84-94) 11/17/18 04:13 MCH 28 pg (28-32) 11/17/18 04:13 MCHC 33 % (32-34) 11/17/18 04:13 RDW 18.2 % (13.2-15.2) H 11/17/18 04:13 Plt Count 196 K/mm3 (140-440) 11/17/18 04:13 Lymph % (Auto) 13.3 % (13.4-35.0) L 11/17/18 04:13 Clinch % (Auto) 8.2 % (0.0-7.3) H 11/17/18 04:13 Eos % (Auto) 5.2 % (0.0-4.3) H 11/17/18 04:13 Baso % (Auto) 0.8 % (0.0-1.8) 11/17/18 04:13 Lymph # 1.0 K/mm3 (1.2-5.4) L 11/17/18 04:13 Clinch # 0.6 K/mm3 (0.0-0.8) 11/17/18 04:13 Eos # 0.4 K/mm3 (0.0-0.4) 11/17/18 04:13 Baso # 0.1 K/mm3 (0.0-0.1) 11/17/18 04:13 Seg Neutrophils % 72.5 % (40.0-70.0) H 11/17/18 04:13 Seg Neutrophils # 5.2 K/mm3 (1.8-7.7) 11/17/18 04:13 PT 13.7 Sec. (12.2-14.9) 11/16/18 19:30 INR 1.08 (0.87-1.13) 11/16/18 19:30 APTT 24.1 Sec. (24.2-36.6) L 11/16/18 19:30 Sodium 140 mmol/L (137-145) 11/17/18 04:13 Potassium 4.3 mmol/L (3.6-5.0) 11/17/18 04:13 Chloride 104.0 mmol/L (98-107) 11/17/18 04:13 Carbon Dioxide 26 mmol/L (22-30) 11/17/18 04:13 14 mmol/L 11/17/18 04:13 BUN 32 mg/dL (9-20) H 11/17/18 04:13 2.2 mg/dL (0.8-1.5) H 11/17/18 04:13 Estimated GFR 42 ml/min 11/17/18 04:13 15 % 11/17/18 04:13 Glucose 118 mg/dL (75-100) H 11/17/18 04:13 Calcium 8.5 mg/dL (8.4-10.2) 11/17/18 04:13 0.70 mg/dL (0.1-1.2) 11/16/18 19:30 AST 33 units/L (5-40) 11/16/18 19:30 ALT 10 units/L (7-56) 11/16/18 19:30 99 units/L (35-129) 11/16/18 19:30 228 units/L (55-170) H 11/17/18 04:13 CK-MB (CK-2) 4.4 ng/mL (0.0-4.0) H 11/17/18 04:13 CK-MB (CK-2) Rel Index 1.9 (0-4) 11/17/18 04:13 0.037 ng/mL (0.00-0.029) H D 11/17/18 04:13 NT-Pro-B Natriuret Pep 5608 pg/mL (0-450) H 11/16/18 19:30 7.7 g/dL (6.3-8.2) 11/16/18 19:30 3.0 g/dL (3.9-5) L 11/16/18 19:30 0.6 % 11/16/18 19:30 Triglycerides 79 mg/dL (2-149) 11/17/18 04:13 Cholesterol 204 mg/dL (50-199) H 11/17/18 04:13 146 mg/dL (50-130) H 11/17/18 04:13 58 mg/dL (40-59) 11/17/18 04:13 3.51 % 11/17/18 04:13 Active Medications - Current Medications Current Medications: Generic Name Dose Route Start Last Admin Trade Name Freq PRN Reason Stop Dose Admin Acetaminophen 650 mg 11/16/18 21:42 11/16/18 22:06 Tylenol PO 650 mg Q4H PRN Administration Pain MILD(1-3)/Fever >100.5/BAHENA Amlodipine Besylate 10 mg 11/17/18 12:00 11/17/18 11:46 Norvasc PO 10 mg QDAY AYESHA Administration Bumetanide 1 mg 11/17/18 18:00 Bumex IV BID@0600,1800 AYESHA Carvedilol 25 mg 11/17/18 12:00 11/17/18 11:47 Coreg PO 25 mg BID AYESHA Administration Clonidine HCl 0.2 mg 11/17/18 12:00 11/17/18 11:47 Catapres PO 0.2 mg Q12HR AYESHA Administration Enoxaparin Sodium 40 mg 11/17/18 10:00 11/17/18 11:49 Lovenox SUB-Q 40 mg QDAY@1000 AYESHA Administration Nicardipine HCl 50 mg/ Sodium 250 mls @ 25 mls/hr 11/16/18 22:00 11/17/18 11:30 Chloride IV 10 mg/hr TITR AYESHA 50 mls/hr Titration Protocol 5 MG/HR Ondansetron HCl 4 mg 11/16/18 21:42 11/16/18 23:27 Zofran IV 4 mg Q8H PRN Administration Nausea And Vomiting Oxycodone/Acetaminophen 1 tab 11/17/18 06:01 11/17/18 11:50 Percocet 5/325 PO 1 tab Q4H PRN Administration Pain, Moderate (4-6) Sodium Chloride 10 ml 11/16/18 22:00 11/17/18 11:50 Sodium Chloride Flush Syringe 10 Ml IV 10 ml BID AYESHA Administration Sodium Chloride 10 ml 11/16/18 21:42 Sodium Chloride Flush Syringe 10 Ml IV PRN PRN LINE FLUSH
[2018-11-17] MEDS ORDERED: NON-FORMULARY (Hydralazine Hcl [Hydralazine Hcl] 50 MG) PO SCH (14:00)
[2018-11-17] MEDS: APRESOLINE PO SCH ×2 (14:20→20:59)
[2018-11-17] MEDS: TYLENOL PO PRN (14:20)
[2018-11-17] MEDS ORDERED: MORPHINE IV ONE (15:29)
[2018-11-17] MEDS: MORPHINE IV PRN (15:34)
[2018-11-17] MEDS: BUMEX IV SCH (18:22)
[2018-11-17] MEDS ORDERED: NON-FORMULARY (Bumetanide [Bumetanide 2 Mg Tab] 2 MG) PO SCH (22:00)
[2018-11-17] MEDS ORDERED: COREG PO SCH (22:00)
[2018-11-17] MEDS ORDERED: CLONIDINE HCL PO SCH (22:00)
[2018-11-18] MEDS: MORPHINE IV PRN (00:40)
[2018-11-18] MEDS: PERCOCET 5/325 PO PRN ×3 (02:34→11:18)
[2018-11-18 05:15] LABS: Creatine Kinase MB 3.1 ng/mL (0.0-4.0)
[2018-11-18 05:16] LABS: Albumin 2.7 g/dL (3.9-5); Calcium 7.9 mg/dL (8.4-10.2)
[2018-11-18] MEDS: APRESOLINE PO SCH ×3 (06:32→21:46)
[2018-11-18] MEDS: BUMEX IV SCH ×2 (06:34→18:22)
[2018-11-18] MEDS: COREG PO SCH ×2 (09:25→21:47)
[2018-11-18] MEDS: CATAPRES PO SCH ×2 (09:25→21:46)
[2018-11-18] MEDS: LOVENOX SUB-Q SCH (09:26)
[2018-11-18] MEDS: SODIUM CHLORIDE FLUSH SYRINGE 10 ML IV SCH ×2 (09:26→21:47)
[2018-11-18] MEDS: ZYLOPRIM PO SCH (09:26)
--- NOTE | 2018-11-18 09:26 | Progress Note ---
Assessment and Plan Assessment and plan: --Hypertensive emergency; present on admission Blood pressures on presentation to ED 253/174, 240/157,214/121 Patient received multiple IV antihypertensives, started on Cardene drip Patient's home antihypertensives resumed, blood pressures dropped a reasonable level Titrate and DC Cardene drip --Chest pain chest pain probably nonspecific, secondary to hypertensive emergency Serial cardiac enzymes, EKG, cardiology consult; --History of Aortic dissection repair --Acute on chronic diastolic congestive heart failure; Continue anti-failure medications, cardiology consult if needed --Nonspecific elevation of troponin; probably secondary to emergency Hypertensive cardiomyopathy, closely monitor Consults cardiology if needed --Chronic kidney disease; closely monitor renal function Avoid nephrotoxins, nephrology consult if needed --History of gout: Continue allopurinol --Morbid obesity; BMI 42.5 advised weight reduction and medically stable --DVT prophylaxis; Lovenox Monitor closely and adjust management as needed Plan of care reviewed with the patient and the family member at the bedside I also discussed with patient's nurse Critical care time 35 minutes If patient remains stable, may be transferred out of ICU to telemetry The high probability of a clinically significant, sudden or life threatening deterioration of the [CVS,Metabolic ,Renal,Rheumatology] system(s) required my full and direct attention, intervention and personal management. The aggregate critical care time was [35] minutes. This time is in addition to time spent performing ,reported procedures but includes the following: [x] Data Review and interpretation [x] Patient assessment and monitoring of vital signs [x] Documentation [x] Medication orders and management Plan of care is reviewed with the patient and his nurse History Interval history: Patient seen and examined medical records reviewed Patient complaints of generalized body pains As for more pain medications Nonspecific elevation of cardiac enzymes Blood pressures monitored controlled Alert awake oriented 3 not in acute distress Hospitalist Physical - Constitutional Vitals: Temp Pulse Resp BP Pulse Ox 97.3 F L 69 16 173/113 94 11/18/18 08:00 11/18/18 09:25 11/18/18 09:00 11/18/18 09:25 11/18/18 09:00 General appearance: Present: no acute distress, well-nourished, obese - EENT Eyes: Present: PERRL, EOM intact - Neck Neck: Present: supple, normal ROM - Respiratory Respiratory effort: normal Respiratory: bilateral: diminished, negative: rales, rhonchi, wheezing - Cardiovascular Rhythm: regular Heart Sounds: Present: S1 & S2 - Extremities Extremities: no ischemia, No edema - Abdominal General gastrointestinal: soft, non-tender, non-distended, normal bowel sounds - Integumentary Integumentary: Present: clear, warm - Psychiatric Psychiatric: appropriate mood/affect, cooperative - Neurologic Neurologic: CNII-XII intact, moves all extremities Results - Labs CBC & Chem 7: 11/17/18 04:13 11/18/18 03:51 Labs: Laboratory Last Values WBC 7.2 K/mm3 (4.5-11.0) 11/17/18 04:13 RBC 5.19 M/mm3 (3.65-5.03) H 11/17/18 04:13 Hgb 14.7 gm/dl (11.8-15.2) 11/17/18 04:13 Hct 45.1 % (35.5-45.6) 11/17/18 04:13 MCV 87 fl (84-94) 11/17/18 04:13 MCH 28 pg (28-32) 11/17/18 04:13 MCHC 33 % (32-34) 11/17/18 04:13 RDW 18.2 % (13.2-15.2) H 11/17/18 04:13 Plt Count 196 K/mm3 (140-440) 11/17/18 04:13 Lymph % (Auto) 13.3 % (13.4-35.0) L 11/17/18 04:13 Cache % (Auto) 8.2 % (0.0-7.3) H 11/17/18 04:13 Eos % (Auto) 5.2 % (0.0-4.3) H 11/17/18 04:13 Baso % (Auto) 0.8 % (0.0-1.8) 11/17/18 04:13 Lymph # 1.0 K/mm3 (1.2-5.4) L 11/17/18 04:13 Cache # 0.6 K/mm3 (0.0-0.8) 11/17/18 04:13 Eos # 0.4 K/mm3 (0.0-0.4) 11/17/18 04:13 Baso # 0.1 K/mm3 (0.0-0.1) 11/17/18 04:13 Seg Neutrophils % 72.5 % (40.0-70.0) H 11/17/18 04:13 Seg Neutrophils # 5.2 K/mm3 (1.8-7.7) 11/17/18 04:13 PT 13.7 Sec. (12.2-14.9) 11/16/18 19:30 INR 1.08 (0.87-1.13) 11/16/18 19:30 APTT 24.1 Sec. (24.2-36.6) L 11/16/18 19:30 Sodium 139 mmol/L (137-145) 11/18/18 03:51 Potassium 4.4 mmol/L (3.6-5.0) 11/18/18 03:51 Chloride 102.8 mmol/L (98-107) 11/18/18 03:51 Carbon Dioxide 27 mmol/L (22-30) 11/18/18 03:51 14 mmol/L 11/18/18 03:51 BUN 34 mg/dL (9-20) H 11/18/18 03:51 2.8 mg/dL (0.8-1.5) H 11/18/18 03:51 Estimated GFR 32 ml/min 11/18/18 03:51 12 % 11/18/18 03:51 Glucose 98 mg/dL (75-100) 11/18/18 03:51 Calcium 7.9 mg/dL (8.4-10.2) L 11/18/18 03:51 Magnesium 2.20 mg/dL (1.7-2.3) 11/18/18 03:51 0.50 mg/dL (0.1-1.2) 11/18/18 03:51 AST 21 units/L (5-40) 11/18/18 03:51 ALT 7 units/L (7-56) 11/18/18 03:51 92 units/L (35-129) 11/18/18 03:51 148 units/L (55-170) 11/18/18 03:51 CK-MB (CK-2) 3.1 ng/mL (0.0-4.0) 11/18/18 03:51 CK-MB (CK-2) Rel Index 2.0 (0-4) 11/18/18 03:51 0.040 ng/mL (0.00-0.029) H 11/18/18 03:51 NT-Pro-B Natriuret Pep 5608 pg/mL (0-450) H 11/16/18 19:30 6.6 g/dL (6.3-8.2) 11/18/18 03:51 2.7 g/dL (3.9-5) L 11/18/18 03:51 0.7 % 11/18/18 03:51 Triglycerides 79 mg/dL (2-149) 11/17/18 04:13 Cholesterol 204 mg/dL (50-199) H 11/17/18 04:13 146 mg/dL (50-130) H 11/17/18 04:13 58 mg/dL (40-59) 11/17/18 04:13 3.51 % 11/17/18 04:13 Active Medications - Current Medications Current Medications: Generic Name Dose Route Start Last Admin Trade Name Fre PRN Reason Stop Dose Admin Acetaminophen 650 mg 11/16/18 21:42 11/17/18 14:20 Tylenol PO 650 mg Q4H PRN Administration Pain MILD(1-3)/Fever >100.5/BAHENA Allopurinol 50 mg 11/18/18 10:00 11/18/18 09:26 Zyloprim PO 50 mg QDAY AYESHA Administration Bumetanide 1 mg 11/17/18 18:00 11/18/18 06:34 Bumex IV 1 mg BID@0600,1800 AYESHA Administration Carvedilol 25 mg 11/17/18 12:00 11/18/18 09:25 Coreg PO 25 mg BID AYESHA Administration Clonidine HCl 0.2 mg 11/17/18 12:00 11/18/18 09:25 Catapres PO 0.2 mg Q12HR AYESHA Administration Enoxaparin Sodium 40 mg 11/17/18 10:00 11/18/18 09:26 Lovenox SUB-Q 40 mg QDAY@1000 AYESHA Administration Hydralazine HCl 50 mg 11/17/18 14:00 11/18/18 06:32 Apresoline PO 50 mg Q8HR AYESHA Administration Morphine Sulfate 2 mg 11/17/18 15:27 11/18/18 00:40 Morphine IV 2 mg Q6H PRN Administration Pain, Moderate (4-6) Nifedipine 60 mg 11/18/18 10:00 11/18/18 09:25 Procardia Xl PO 60 mg DAILY AYESHA Administration Ondansetron HCl 4 mg 11/16/18 21:42 11/16/18 23:27 Zofran IV 4 mg Q8H PRN Administration Nausea And Vomiting Oxycodone/Acetaminophen 1 tab 11/17/18 06:01 11/18/18 06:33 Percocet 5/325 PO 1 tab Q4H PRN Administration Pain, Moderate (4-6) Sodium Chloride 10 ml 11/16/18 22:00 11/17/18 22:46 Sodium Chloride Flush Syringe 10 Ml IV 10 ml BID AYESHA Administration Sodium Chloride 10 ml 11/16/18 21:42 Sodium Chloride Flush Syringe 10 Ml IV PRN PRN LINE FLUSH
[2018-11-18] MEDS ORDERED: PROCARDIA XL PO SCH (10:00)
[2018-11-18] MEDS ORDERED: DILAUDID IV PRN (10:45)
[2018-11-18] MEDS: NORVASC PO SCH (11:23)
--- NOTE | 2018-11-18 11:31 | Progress Note ---
Assessment and Plan 11/18 bp still not fully controlled Renal to follow also with renal fail this was noted previously - Patient Problems (1) Acute CHF (congestive heart failure) Current Visit: Yes Status: Acute (2) Acute kidney failure Current Visit: No Status: Acute Subjective Date of service: 11/18/18 Interval history: 11/18/18 c/o leg cramps bp still elevated off drip will monitor No resp issues, chest pain Objective - Constitutional Vitals: Vital Signs - 12hr 11/17/18 11/18/18 11/18/18 23:31 00:00 00:01 Temperature Pulse Rate 71 Respiratory 24 22 Rate Blood Pressure 132/64 138/81 O2 Sat by Pulse 97 93 93 Oximetry 11/18/18 11/18/18 11/18/18 00:06 00:30 00:40 Temperature Pulse Rate 71 70 Respiratory 22 16 Rate Blood Pressure 138/85 O2 Sat by Pulse 94 Oximetry 11/18/18 11/18/18 11/18/18 01:00 01:31 02:00 Temperature Pulse Rate 68 74 73 Respiratory 19 16 18 Rate Blood Pressure 138/85 150/94 157/91 O2 Sat by Pulse 96 95 92 Oximetry 11/18/18 11/18/18 11/18/18 02:30 02:34 03:00 Temperature Pulse Rate 72 68 Respiratory 18 18 19 Rate Blood Pressure 141/87 150/91 O2 Sat by Pulse 96 99 Oximetry 11/18/18 11/18/18 11/18/18 03:30 03:53 04:00 Temperature 98.8 F Pulse Rate 65 Respiratory 14 17 Rate Blood Pressure 140/83 O2 Sat by Pulse 99 98 Oximetry 11/18/18 11/18/18 11/18/18 04:01 04:31 05:01 Temperature Pulse Rate 68 66 68 Respiratory 17 21 17 Rate Blood Pressure 140/83 140/83 140/83 O2 Sat by Pulse 98 92 94 Oximetry 11/18/18 11/18/18 11/18/18 05:31 06:01 06:30 Temperature Pulse Rate 66 66 66 Respiratory 19 21 18 Rate Blood Pressure 140/83 158/91 150/93 O2 Sat by Pulse 91 94 95 Oximetry 11/18/18 11/18/18 11/18/18 06:32 06:33 07:00 Temperature Pulse Rate 66 59 L Respiratory 17 17 Rate Blood Pressure 150/93 142/90 O2 Sat by Pulse 84 Oximetry 11/18/18 11/18/18 11/18/18 07:30 08:00 08:30 Temperature 97.3 F L Pulse Rate 65 64 65 Respiratory 22 19 18 Rate Blood Pressure 164/102 160/96 168/97 O2 Sat by Pulse 92 95 93 Oximetry 11/18/18 11/18/18 11/18/18 08:40 09:00 09:25 Temperature Pulse Rate 64 67 69 Respiratory 16 Rate Blood Pressure 173/113 173/113 O2 Sat by Pulse 94 Oximetry 11/18/18 11/18/18 11/18/18 09:30 10:00 10:30 Temperature Pulse Rate 73 69 68 Respiratory 18 24 17 Rate Blood Pressure 164/106 159/101 158/94 O2 Sat by Pulse 93 95 93 Oximetry 11/18/18 11:23 Temperature Pulse Rate 68 Respiratory Rate Blood Pressure 158/95 O2 Sat by Pulse Oximetry General appearance: Present: no acute distress - EENT Eyes: PERRL ENT: hearing intact - Respiratory Respiratory effort: normal Respiratory: bilateral: CTA, wheezing (mild) - Cardiovascular Heart rate: 60 Rhythm: regular Heart Sounds: Present: S1 & S2 Extremities: pulses intact Extremity abnormal: edema (mild) - Gastrointestinal General gastrointestinal: Present: soft Rectal Exam: deferred - Integumentary Integumentary: clear - Neurologic Neurologic: CNII-XII intact - Psychiatric Psychiatric: appropriate mood/affect - Labs CBC & Chem 7: 11/17/18 04:13 11/18/18 03:51 Labs: Abnormal lab results 11/18/18 Range/Units 03:51 BUN 34 H (9-20) mg/dL Creatinine 2.8 H (0.8-1.5) mg/dL Calcium 7.9 L (8.4-10.2) mg/dL Troponin T 0.040 H (0.00-0.029) ng/mL Albumin 2.7 L (3.9-5) g/dL eos increased - Imaging and cardiology Chest x-ray: image reviewed (neg ) Medications & Allergies - Medications Allergies/Adverse Reactions: Allergies AYLIN Inhibitors Allergy (Verified 11/16/18 20:37) Unknown aspirin Allergy (Verified 11/12/18 03:21) Bleeding Home Medications: Home Medications Medication Instructions Recorded Confirmed Last Taken Type Allopurinol [Zyloprim] 0.5 tab PO QDAY 11/16/18 11/16/18 Unknown History Bumetanide [Bumetanide 2 mg tab] 2 mg PO BID 11/16/18 11/16/18 Unknown History Carvedilol [Coreg] 25 mg PO BID 11/16/18 11/16/18 Unknown History Clonidine HCl [Catapres] 1 tab PO Q12HR 11/16/18 11/16/18 Unknown History Hydralazine HCl 50 mg PO Q8HR 11/16/18 11/16/18 Unknown History NIFEdipine [Nifedipine ER] 60 mg PO DAILY 11/16/18 11/16/18 Unknown History Active Medications: Generic Name Dose Route Start Last Admin Trade Name Freq PRN Reason Stop Dose Admin Acetaminophen 650 mg 11/16/18 21:42 11/17/18 14:20 Tylenol PO 650 mg Q4H PRN Administration Pain MILD(1-3)/Fever >100.5/BAHENA Allopurinol 50 mg 11/18/18 10:00 11/18/18 09:26 Zyloprim PO 50 mg QDAY AYESHA Administration Amlodipine Besylate 10 mg 11/18/18 12:00 11/18/18 11:23 Norvasc PO 10 mg QDAY AYESHA Administration Bumetanide 1 mg 11/17/18 18:00 11/18/18 06:34 Bumex IV 1 mg BID@0600,1800 AYESHA Administration Carvedilol 25 mg 11/17/18 12:00 11/18/18 09:25 Coreg PO 25 mg BID AYESHA Administration Clonidine HCl 0.2 mg 11/17/18 12:00 11/18/18 09:25 Catapres PO 0.2 mg Q12HR AYESHA Administration Enoxaparin Sodium 40 mg 11/17/18 10:00 11/18/18 09:26 Lovenox SUB-Q 40 mg QDAY@1000 AYESHA Administration Hydralazine HCl 50 mg 11/17/18 14:00 11/18/18 06:32 Apresoline PO 50 mg Q8HR AYESHA Administration Hydromorphone HCl 1 mg 11/18/18 10:45 Dilaudid IV Q6H PRN Pain , Severe (7-10) Ondansetron HCl 4 mg 11/16/18 21:42 11/16/18 23:27 Zofran IV 4 mg Q8H PRN Administration Nausea And Vomiting Oxycodone/Acetaminophen 1 tab 11/17/18 06:01 11/18/18 11:18 Percocet 5/325 PO 1 tab Q4H PRN Administration Pain, Moderate (4-6) Sodium Chloride 10 ml 11/16/18 22:00 11/18/18 09:26 Sodium Chloride Flush Syringe 10 Ml IV 10 ml BID AYESHA Administration Sodium Chloride 10 ml 11/16/18 21:42 Sodium Chloride Flush Syringe 10 Ml IV PRN PRN LINE FLUSH
--- NOTE | 2018-11-18 12:07 | Consultation ---
History of Present Illness Consult date: 11/18/18 Past History Past Medical History: heart failure, hypertension, other (chronic lymphedema) Past Surgical History: abd. aortic aneurysm repair Social history: no significant social history Medications and Allergies Allergies Allergy/AdvReac Type Severity Reaction Status Date / Time AYLIN Inhibitors Allergy Unknown Verified 11/16/18 20:37 aspirin Allergy Bleeding Verified 11/12/18 03:21 Home Medications Medication Instructions Recorded Confirmed Last Taken Type Allopurinol [Zyloprim] 0.5 tab PO QDAY 11/16/18 11/16/18 Unknown History Bumetanide [Bumetanide 2 mg tab] 2 mg PO BID 11/16/18 11/16/18 Unknown History Carvedilol [Coreg] 25 mg PO BID 11/16/18 11/16/18 Unknown History Clonidine HCl [Catapres] 1 tab PO Q12HR 11/16/18 11/16/18 Unknown History Hydralazine HCl 50 mg PO Q8HR 11/16/18 11/16/18 Unknown History NIFEdipine [Nifedipine ER] 60 mg PO DAILY 11/16/18 11/16/18 Unknown History Active Meds: Active Medications Acetaminophen (Tylenol) 650 mg PO Q4H PRN PRN Reason: Pain MILD(1-3)/Fever >100.5/BAHENA Last Admin: 11/17/18 14:20 Dose: 650 mg Documented by: Allopurinol (Zyloprim) 50 mg PO QDAY [facility] Last Admin: 11/18/18 09:26 Dose: 50 mg Documented by: Amlodipine Besylate (Norvasc) 10 mg PO QDAY [facility] Last Admin: 11/18/18 11:23 Dose: 10 mg Documented by: Bumetanide (Bumex) 1 mg IV BID@0600,1800 [facility] Last Admin: 11/18/18 06:34 Dose: 1 mg Documented by: Carvedilol (Coreg) 25 mg PO BID [facility] Last Admin: 11/18/18 09:25 Dose: 25 mg Documented by: Clonidine HCl (Catapres) 0.2 mg PO Q12HR [facility] Last Admin: 11/18/18 09:25 Dose: 0.2 mg Documented by: Enoxaparin Sodium (Lovenox) 40 mg SUB-Q QDAY@1000 [facility] Last Admin: 11/18/18 09:26 Dose: 40 mg Documented by: Hydralazine HCl (Apresoline) 50 mg PO Q8HR AYESHA Last Admin: 11/18/18 06:32 Dose: 50 mg Documented by: Hydromorphone HCl (Dilaudid) 1 mg IV Q6H PRN PRN Reason: Pain , Severe (7-10) Ondansetron HCl (Zofran) 4 mg IV Q8H PRN PRN Reason: Nausea And Vomiting Last Admin: 11/16/18 23:27 Dose: 4 mg Documented by: Oxycodone/Acetaminophen (Percocet 5/325) 1 tab PO Q4H PRN PRN Reason: Pain, Moderate (4-6) Last Admin: 11/18/18 11:18 Dose: 1 tab Documented by: Sodium Chloride (Sodium Chloride Flush Syringe 10 Ml) 10 ml IV BID AYESHA Last Admin: 11/18/18 09:26 Dose: 10 ml Documented by: Sodium Chloride (Sodium Chloride Flush Syringe 10 Ml) 10 ml IV PRN PRN PRN Reason: LINE FLUSH Physical Examination Vital Signs Resp Pulse Ox 18 99 11/16/18 19:00 11/16/18 19:00 Results 11/17/18 04:13 11/18/18 03:51 Cardiac Enzymes 11/18/18 Range/Units 03:51 AST 21 (5-40) units/L CK-MB (CK-2) 3.1 (0.0-4.0) ng/mL Comprehensive Metabolic Panel 11/18/18 Range/Units 03:51 Sodium 139 (137-145) mmol/L Potassium 4.4 (3.6-5.0) mmol/L Chloride 102.8 (98-107) mmol/L Carbon Dioxide 27 (22-30) mmol/L BUN 34 H (9-20) mg/dL Creatinine 2.8 H (0.8-1.5) mg/dL Glucose 98 (75-100) mg/dL Calcium 7.9 L (8.4-10.2) mg/dL AST 21 (5-40) units/L ALT 7 (7-56) units/L Alkaline Phosphatase 92 (35-129) units/L Total Protein 6.6 (6.3-8.2) g/dL Albumin 2.7 L (3.9-5) g/dL Assessment and Plan Detailed Cardiology consult dictated.
[2018-11-18 13:07] LABS: Amphetamine Screen,Urine PRESUMPTIVE NEGATIVE; Benzodiazepines Screen,Urine PRESUMPTIVE NEGATIVE; Cannabinoid Screen,Urine PRESUMPTIVE NEGATIVE; Cocaine Screen,Urine PRESUMPTIVE NEGATIVE; Methadone Screen,Urine PRESUMPTIVE NEGATIVE; Opiate Screen,Urine PRESUMPTIVE NEGATIVE
--- NOTE | 2018-11-18 14:23 | Consultation ---
History of Present Illness - Reason for Consult Consult date: 11/18/18 acute renal failure, chronic renal failure - History of Present Illness This is a 33 y/o M with PMH of HTN, CKD Stage 3, CHF, gout, aortic dissection s/p repair about 2 yrs ago who presented to [facility] ED with c/o chest pain, shortness of breath, dyspnea on exertion, BLE swelling, and nausea. This pt was seen by our nephrology practice during previous hospitalization here in June of 2018 for JL and concern of amyloidosis and had SCr level as high as 3.3, trended down to 2.9 on day of discharge 07/28/18, diuretics adjusted to Bumex 2 mg po daily upon discharge. Pt reports taking Bumex 2 mg daily as prescribed, but mentioned he was non-compliant with his cardiac diet and would eat more higher sodium/salt rich foods. We were consulted to evaluate this pt who has JL on CKD. Pt seen in ICU. Pt reports less shortness of breath since admission. Family at bedside, updated on renal plan and educated on importance of low sodium/salt diet, hypertensive management, and following up with us in the office. Pt and family voiced understanding, pleasant demeanor. Past History Past Medical History: heart failure, hypertension, other (chronic lymphedema) Past Surgical History: abd. aortic aneurysm repair Social history: no significant social history Medications and Allergies Allergies Allergy/AdvReac Type Severity Reaction Status Date / Time AYLIN Inhibitors Allergy Unknown Verified 11/16/18 20:37 aspirin Allergy Bleeding Verified 11/12/18 03:21 Home Medications Medication Instructions Recorded Confirmed Last Taken Type Allopurinol [Zyloprim] 0.5 tab PO QDAY 11/16/18 11/16/18 Unknown History Bumetanide [Bumetanide 2 mg tab] 2 mg PO BID 11/16/18 11/16/18 Unknown History Carvedilol [Coreg] 25 mg PO BID 11/16/18 11/16/18 Unknown History Clonidine HCl [Catapres] 1 tab PO Q12HR 11/16/18 11/16/18 Unknown History Hydralazine HCl 50 mg PO Q8HR 11/16/18 11/16/18 Unknown History NIFEdipine [Nifedipine ER] 60 mg PO DAILY 11/16/18 11/16/18 Unknown History Active Meds: Active Medications Acetaminophen (Tylenol) 650 mg PO Q4H PRN PRN Reason: Pain MILD(1-3)/Fever >100.5/BAHENA Last Admin: 11/17/18 14:20 Dose: 650 mg Documented by: Allopurinol (Zyloprim) 50 mg PO QDAY [facility] Last Admin: 11/18/18 09:26 Dose: 50 mg Documented by: Amlodipine Besylate (Norvasc) 10 mg PO QDAY [facility] Last Admin: 11/18/18 11:23 Dose: 10 mg Documented by: Atorvastatin Calcium (Lipitor) 20 mg PO QHS [facility] Bumetanide (Bumex) 1 mg IV BID@0600,1800 [facility] Last Admin: 11/18/18 06:34 Dose: 1 mg Documented by: Carvedilol (Coreg) 25 mg PO BID [facility] Last Admin: 11/18/18 09:25 Dose: 25 mg Documented by: Clonidine HCl (Catapres) 0.2 mg PO Q12HR [facility] Last Admin: 11/18/18 09:25 Dose: 0.2 mg Documented by: Enoxaparin Sodium (Lovenox) 40 mg SUB-Q QDAY@1000 [facility] Last Admin: 11/18/18 09:26 Dose: 40 mg Documented by: Hydralazine HCl (Apresoline) 50 mg PO Q8HR [facility] Last Admin: 11/18/18 06:32 Dose: 50 mg Documented by: Hydromorphone HCl (Dilaudid) 1 mg IV Q6H PRN PRN Reason: Pain , Severe (7-10) Ondansetron HCl (Zofran) 4 mg IV Q8H PRN PRN Reason: Nausea And Vomiting Last Admin: 11/16/18 23:27 Dose: 4 mg Documented by: Oxycodone/Acetaminophen (Percocet 5/325) 1 tab PO Q4H PRN PRN Reason: Pain, Moderate (4-6) Last Admin: 11/18/18 11:18 Dose: 1 tab Documented by: Sodium Chloride (Sodium Chloride Flush Syringe 10 Ml) 10 ml IV BID [facility] Last Admin: 11/18/18 09:26 Dose: 10 ml Documented by: Sodium Chloride (Sodium Chloride Flush Syringe 10 Ml) 10 ml IV PRN PRN PRN Reason: LINE FLUSH Review of Systems Constitutional: fatigue, weakness, no fever Cardiovascular: chest pain, shortness of breath, dyspnea on exertion, high blood pressure, leg edema Respiratory: shortness of breath, dyspnea on exertion Gastrointestinal: nausea, no abdominal pain, no vomiting, no diarrhea, no constipation, no hematemesis Genitourinary Male: no dysuria, no hematuria Musculoskeletal: other (BLE swelling) Integumentary: no wounds Neurological: weakness, no numbness, no tingling Exam - Vital Signs Vital signs: Vital Signs Resp Pulse Ox 18 99 11/16/18 19:00 11/16/18 19:00 - General Appearance General appearance: well-developed EENT: ATNC Neck: Present: neck supple Respiratory: Decreased Breath Sounds Heart: regular, S1S2 Gastrointestinal: Present: normoactive bowel sounds. Absent: tenderness Integumentary: warm and dry Neurologic: alert and oriented x3 Musculoskeletal: Present: other (1+ edema to BLE) Psychiatric: cooperative Results - Lab Results 11/17/18 04:13 11/18/18 03:51 Most recent lab results Calcium 7.9 mg/dL (8.4-10.2) L 11/18/18 03:51 Magnesium 2.20 mg/dL (1.7-2.3) 11/18/18 03:51 Assessment and Plan Assessment: Acute Kidney Injury on CKD in setting of Hypertensive emergency, vs progression of CKD, r/o obstruction Hypertensive Emergency Chest Pain Acute on chronic Diastolic congestive heart failure Hx of Aortic Dissection s/p repair about 2 yrs ago Plan: - Renal function reviewed, SCr level was 2.8 today, yesterday's SCr level was 2.2, non-oliguric - JL on CKD vs progression of CKD - Obtain urine lytes/protein - On Bumex 1 mg IV BID - Obtain Renal US - Check PTH and phosphorus - CXR on 11/16/18 showed no acute findings - Cardiology and Pulmonology on board - Renally dose meds - Strict I&O - Intake= 600 ml Output= 1350 ml ( Net= -750 ml) - Muñoz Catheter: No - Renal plan d/w Dr Rice
[2018-11-18 18:24] LABS: RBC,Urine < 1.0 /HPF (0.0-6.0)
[2018-11-18 18:29] LABS: Creatinine,Urine 116.5 mg/dL (0.1-20.0)
[2018-11-18 18:35] LABS: Mucus,Urine FEW /HPF; WBC,Urine < 1.0 /HPF (0.0-6.0)
[2018-11-18 18:55] LABS: Microalbumin/Creatinine Ratio 1403.4 ug/mg
[2018-11-19] MEDS: APRESOLINE PO SCH ×3 (05:49→22:18)
[2018-11-19] MEDS: BUMEX IV SCH (05:49)
--- NOTE | 2018-11-19 05:53 | Consultation ---
CARDIOLOGY CONSULTATION AGE: 33. SEX: Male. REFERRING PHYSICIAN: Dr. Lorena Johnson, hospitalist. HISTORY OF PRESENT ILLNESS: A 33-year-old morbidly obese, pleasant -[place] gentleman with history of longstanding hypertension, chronic congestive heart failure, gout, history of aortic dissection with bioprosthetic aortic valve replacement 2 years ago at [facility] who was admitted with progressive shortness of breath for many weeks, more marked a week before the time of admission. He also gives history of swelling of both legs for several months and it has become more marked for the past 2 weeks. Shortness of breath was associated with some moderate chest discomfort, which is not radiating, associated with some nausea and dizziness. No history of syncope. CPKs were increased, but the CPK-MB indices were negative. ProBNP was 5608. His serum troponins were 0.22, 0.019, 0.025, 0.037 and 0.040, mild increase. The patient also has chronic kidney disease with creatinine of 2.8. PAST MEDICAL HISTORY: History of multiple medical problems as described above, history of aortic dissection and root repair with bioprosthetic aortic valve replacement 2 years ago, history of chronic kidney disease, history of gout, history of chronic congestive heart failure. He also has had a hernia surgery in the past. SOCIAL HISTORY: Not a smoker, not an alcoholic, no history of drug abuse. FAMILY HISTORY: Negative for premature coronary artery disease. ALLERGIES: He is allergic to AYLIN INHIBITOR -- he develops swelling of lip and throat. REVIEW OF SYSTEMS: CARDIOVASCULAR: As described in the history. No history of coronary artery disease in the past. BONE AND JOINTS: As described in the history. EYES: As described in the history. PULMONARY: History of chronic congestive heart failure, giving rise to shortness of breath. No history of obstructive sleep apnea. Review of rest of the 10 system is negative. MEDICATIONS: Allopurinol 50 mg p.o. daily, nifedipine XL 60 mg p.o. daily, Bumex 1 mg IV b.i.d., carvedilol 25 mg p.o. b.i.d., clonidine 0.2 mg p.o. q.12 hours, Lovenox 40 mg subcutaneous daily, hydralazine 50 mg p.o. t.i.d. PHYSICAL EXAMINATION: GENERAL: A 33-year-old morbidly obese, pleasant -[place] gentleman, not in distress. Alert. VITAL SIGNS: Pulse 68 per minute, regular, blood pressure 158/94 mmHg, respirations 18 per minute. The patient's initial blood pressure in the Emergency Room was 219/145 mmHg. He was treated with medications and subsequently it came down. NEUROLOGIC: He is alert and oriented x 3. HEENT: Negative. NECK: Supple, no JVD, no bruit, no thyromegaly. HEART: PMI shifted laterally and is forcible in nature. No palpable heart sounds or thrills. Auscultation of heart reveals S1, S2 heard. S2 is loud, S4 is heard. No S3. Grade 2/6 harsh ejection systolic murmur is heard all over the precardium, more prominent over the base. EXTREMITIES: Peripheral pulses felt. Bilateral 1-2+ chronic edema. Chronic skin changes. Skin in both legs and feet dry. LUNGS: Bilateral air entry good and equal. No bronchial breathing. No wheezing. ABDOMEN: Soft, benign. No organomegaly. BONE AND JOINTS: Negative. LABORATORY DATA: Reveal normal potassium, BUN of 34, creatinine of 2.8, sodium 139, chloride 103, CO2 of 27. ProBNP and troponins as described above. CPK was increased; however, CPK-MB indices were negative. LDL 146, HDL 58 with normal triglycerides. EKG normal sinus rhythm, left atrial enlargement, left anterior fascicular block, possible old anterior wall myocardial infarction, poor R-wave progression in V3-V6. Chest x-ray 1 view negative. IMPRESSION: 1. Acute on chronic congestive heart failure. 2. Hypertension with hypertensive heart disease. 3. Abnormal EKG. 4. History of aortic dissection and aortic root repair and history of bioprosthetic aortic valve replacement. 5. Hypertensive urgency -- blood pressure has come down now. 6. Mildly increased troponins, no definite evidence of acute myocardial infarction. 7. Mild increase in troponin most likely secondary to chronic kidney disease. 8.Hypercholesterolemia. 9.H/O Gout. RECOMMENDATIONS: 1. Blood pressure control -- we will discontinue nifedipine and place him on amlodipine 10 mg p.o. daily and continue other medications. 2. Low sodium, low cholesterol diet. 3. We would order an echocardiogram to assess ventricular function and assess the prosthetic aortic valve. 4. We would also place him on atorvastatin 20 mg p.o. daily. Further recommendations will follow after reviewing the echocardiogram. JOB# [id number] ANGELES/CORKY POLLACK
[2018-11-19 06:35] LABS: Hematocrit 42.9 % (35.5-45.6); Hemoglobin 13.9 gm/dl (11.8-15.2); Mean Corpuscular HGB Conc 32 % (32-34); Mean Corpuscular Volume 88 fl (84-94); Platelet Count 196 K/mm3 (140-440); Red Blood Count 4.91 M/mm3 (3.65-5.03); Red Cell Distribution Width 18.2 % (13.2-15.2)
[2018-11-19 06:51] LABS: Calcium 8.3 mg/dL (8.4-10.2)
[2018-11-19] MEDS: LOVENOX SUB-Q SCH (09:23)
[2018-11-19] MEDS: COREG PO SCH ×2 (09:24→22:18)
[2018-11-19] MEDS: CATAPRES PO SCH ×2 (09:24→22:20)
[2018-11-19] MEDS: ZYLOPRIM PO SCH (09:24)
[2018-11-19] MEDS: NORVASC PO SCH (09:25)
[2018-11-19] MEDS: SODIUM CHLORIDE FLUSH SYRINGE 10 ML IV SCH ×2 (09:26→22:20)
[2018-11-19] MEDS: PERCOCET 5/325 PO PRN ×3 (09:32→22:17)
--- NOTE | 2018-11-19 11:03 | Progress Note ---
Assessment and Plan Would increase hydralazine dose to 100 mg by mouth every 8 hours for better control of his blood pressure. Will discontinue IV Bumex and place him on Bumex 2 mg by mouth daily. Would also schedule him for a emmanuel stress nuclear scan in a.m. further cardiac evaluation. Discussed with the patient in detail. - Patient Problems (1) Acute on chronic systolic and diastolic heart failure, NYHA class 2 Current Visit: Yes Status: Resolved (2) H/O: gout Current Visit: Yes Status: Chronic (3) Abnormal ECG Current Visit: No Status: Chronic (4) Acute on chronic kidney failure Current Visit: No Status: Acute (5) Chest pain Current Visit: No Status: Resolved (6) Elevated troponin Current Visit: No Status: Acute (7) Hypertensive emergency Current Visit: No Status: Resolved (8) Morbid obesity with BMI of 40.0-44.9, adult Current Visit: No Status: Chronic (9) S/P aortic dissection repair Current Visit: No Status: Chronic Subjective Date of service: 11/19/18 Interval history: Patient's shortness of breath is much less. His blood pressure today is 156/95 mm of mercurystill not under control. I reviewed his echocardiogram done on 07/25/2018 which revealed mild to moderate left ventricular systolic dysfunction with LVEF of 40-45%, moderate to severe LVH,grade 2 diastolic LV dysfunction and trace aortic regurgitation. There was no evidence of pericardial effusion. Objective Vital Signs Temp Pulse Resp BP Pulse Ox 11/19/18 09:25 69 156/95 11/19/18 09:24 69 156/95 11/19/18 07:21 98.1 F 69 18 156/95 91 11/19/18 05:49 72 161/98 11/19/18 05:13 98.0 F 71 18 156/94 91 11/19/18 00:17 98.4 F 72 18 161/98 95 11/18/18 22:00 100 11/18/18 21:47 70 149/101 11/18/18 20:00 74 11/18/18 19:53 98.1 F 78 18 170/106 96 11/18/18 19:30 68 20 148/98 95 11/18/18 19:25 69 21 155/88 95 11/18/18 19:10 70 26 H 149/101 95 11/18/18 19:07 77 27 H 149/101 95 11/18/18 19:01 70 22 149/101 93 11/18/18 18:30 73 23 170/95 92 11/18/18 18:00 74 25 H 176/105 95 11/18/18 17:30 66 19 151/95 94 11/18/18 17:01 80 20 154/110 94 11/18/18 16:30 67 28 H 152/90 95 11/18/18 16:00 97.4 F L 66 19 141/87 97 11/18/18 15:30 70 21 147/94 97 11/18/18 15:00 70 23 142/87 94 11/18/18 14:55 70 140/83 11/18/18 14:30 72 17 140/83 97 11/18/18 14:00 74 18 165/84 97 11/18/18 13:30 75 31 H 157/90 95 11/18/18 13:00 71 19 151/92 90 11/18/18 12:31 70 18 152/90 90 11/18/18 12:20 22 94 11/18/18 12:00 97.9 F 67 13 152/90 96 11/18/18 11:30 71 17 154/99 97 11/18/18 11:23 68 158/95 11/18/18 11:00 69 24 154/95 93 - Physical Examination General: No Apparent Distress HEENT: Positive: PERRL Neck: Positive: neck supple. Negative: JVD/HJR Cardiac: Positive: S4, Systolic Murmur (grade 2/6 harsh ESM+), Other (loud S2) Lungs: Positive: clear to auscultation, No Wheeze, Rales, Rhonchi Neuro: Positive: Grossly Intact Abdomen: Positive: Soft, Active Bowel Sounds Skin: Positive: Clear. Negative: Rash Musculoskeletal: No Fluid Collection, No Pain, Normal Range of Motion Extremities: Present: upper extr. pulses, lower extr. pulses, edema (Trace) - Labs and Meds CBC 11/19/18 Range/Units 06:03 WBC 5.1 (4.5-11.0) K/mm3 RBC 4.91 (3.65-5.03) M/mm3 Hgb 13.9 (11.8-15.2) gm/dl Hct 42.9 (35.5-45.6) % Plt Count 196 (140-440) K/mm3 Comprehensive Metabolic Panel 11/19/18 Range/Units 06:03 Sodium 139 (137-145) mmol/L Potassium 4.5 (3.6-5.0) mmol/L Chloride 103.1 (98-107) mmol/L Carbon Dioxide 25 (22-30) mmol/L BUN 32 H (9-20) mg/dL Creatinine 2.5 H (0.8-1.5) mg/dL Glucose 104 H (75-100) mg/dL Calcium 8.3 L (8.4-10.2) mg/dL - Imaging and Cardiology EKG: report reviewed, image reviewed - Telemetry EKG Rhythm: 1st Degree HB - EKG Sinus rhythms and dysrhythmias: sinus rhythm AV and intraventricular conduction: 1 AV block, left anterior fascicular Repolarization changes or abnormalities: Q-T interval prolongation
--- NOTE | 2018-11-19 11:41 | Progress Note ---
Assessment and Plan Acute Kidney Injury on CKD in setting of Hypertensive emergency, vs progression of CKD, r/o obstruction Hypertensive Emergency Chest Pain Acute on chronic Diastolic congestive heart failure Hx of Aortic Dissection s/p repair about 2 yrs ago Plan: -Cr is improving, now back to baseline - On Bumex - CXR on 11/16/18 showed no acute findings - Cardiology and Pulmonology on board - Renally dose meds - Strict I&O - Muñoz Catheter: No Subjective Date of service: 11/19/18 Principal diagnosis: acute on chronic kidney failure Interval history: denies acute issues, comfortable Objective - Vital Signs Vital signs: Vital Signs - 12hr 11/19/18 11/19/18 11/19/18 00:17 05:13 05:49 Temperature 98.4 F 98.0 F Pulse Rate 72 71 72 Respiratory 18 18 Rate Blood Pressure 161/98 156/94 161/98 O2 Sat by Pulse 95 91 Oximetry 11/19/18 11/19/18 11/19/18 07:21 09:24 09:25 Temperature 98.1 F Pulse Rate 69 69 69 Respiratory 18 Rate Blood Pressure 156/95 156/95 156/95 O2 Sat by Pulse 91 Oximetry - General Appearance General appearance: well-developed, well-nourished, obese EENT: ATNC, PERRL, mucous membranes moist Neck: no JVD, no carotid bruit Respiratory: Present: Clear to Ascultation. Absent: Rales, Ronchi Cardiology: regular, S1S2 Gastrointestinal: normoactive bowel sounds, no tenderness, no distended Integumentary: no rash, warm and dry Neurologic: no focal deficit, no asterixis, alert and oriented x3 Musculoskeletal: other (trace pitting edema in BLE) Psychiatric: mood/affect appropriate, cooperative - Lab 11/19/18 06:03 11/19/18 06:03 Most recent lab results Calcium 8.3 mg/dL (8.4-10.2) L 11/19/18 06:03 Phosphorus 3.90 mg/dL (2.5-4.5) 11/19/18 06:03 Magnesium 2.20 mg/dL (1.7-2.3) 11/18/18 03:51 116.5 mg/dL (0.1-20.0) H 11/18/18 17:55 84 mmol/L 11/18/18 17:55 229 mg/dL (5-11.8) H 11/18/18 17:55 Medications & Allergies - Medications Allergies/Adverse Reactions: Allergies AYLIN Inhibitors Allergy (Verified 11/16/18 20:37) Unknown aspirin Allergy (Verified 11/12/18 03:21) Bleeding Home Medications: Home Medications Medication Instructions Recorded Confirmed Last Taken Type Allopurinol [Zyloprim] 0.5 tab PO QDAY 11/16/18 11/16/18 Unknown History Bumetanide [Bumetanide 2 mg tab] 2 mg PO BID 11/16/18 11/16/18 Unknown History Carvedilol [Coreg] 25 mg PO BID 11/16/18 11/16/18 Unknown History Clonidine HCl [Catapres] 1 tab PO Q12HR 11/16/18 11/16/18 Unknown History Hydralazine HCl 50 mg PO Q8HR 11/16/18 11/16/18 Unknown History NIFEdipine [Nifedipine ER] 60 mg PO DAILY 11/16/18 11/16/18 Unknown History Active Medications: Generic Name Dose Route Start Last Admin Trade Name Freq PRN Reason Stop Dose Admin Acetaminophen 650 mg 11/16/18 21:42 11/17/18 14:20 Tylenol PO 650 mg Q4H PRN Administration Pain MILD(1-3)/Fever >100.5/BAHENA Allopurinol 50 mg 11/18/18 10:00 11/19/18 09:24 Zyloprim PO 50 mg QDAY AYESHA Administration Amlodipine Besylate 10 mg 11/18/18 12:00 11/19/18 09:25 Norvasc PO 10 mg QDAY AYESHA Administration Atorvastatin Calcium 20 mg 11/18/18 22:00 11/18/18 21:47 Lipitor PO 20 mg QHS AYESHA Administration Bumetanide 1 mg 11/17/18 18:00 11/19/18 05:49 Bumex IV 1 mg BID@0600,1800 AYESHA Administration Carvedilol 25 mg 11/17/18 12:00 11/19/18 09:24 Coreg PO 25 mg BID AYESHA Administration Clonidine HCl 0.2 mg 11/17/18 12:00 11/19/18 09:24 Catapres PO 0.2 mg Q12HR AYESHA Administration Enoxaparin Sodium 40 mg 11/17/18 10:00 11/19/18 09:23 Lovenox SUB-Q 40 mg QDAY@1000 AYESHA Administration Hydralazine HCl 100 mg 11/19/18 14:00 Apresoline PO Q8HR [facility] Hydromorphone HCl 1 mg 11/18/18 10:45 Dilaudid IV Q6H PRN Pain , Severe (7-10) Ondansetron HCl 4 mg 11/16/18 21:42 11/16/18 23:27 Zofran IV 4 mg Q8H PRN Administration Nausea And Vomiting Oxycodone/Acetaminophen 1 tab 11/17/18 06:01 11/19/18 09:32 Percocet 5/325 PO 1 tab Q4H PRN Administration Pain, Moderate (4-6) Sodium Chloride 10 ml 11/16/18 22:00 11/19/18 09:26 Sodium Chloride Flush Syringe 10 Ml IV 10 ml BID AYESHA Administration Sodium Chloride 10 ml 11/16/18 21:42 Sodium Chloride Flush Syringe 10 Ml IV PRN PRN LINE FLUSH
--- NOTE | 2018-11-19 14:47 | Ultrasound Report ---
Renal ultrasound. 11/19/2018. HISTORY: Acute renal insufficiency. FINDINGS: Right kidney measures 10.9 cm. Left kidney measures 11.1 cm. Negative for mass or obstructi on. Cortical echogenicity is increased bilaterally. A few small cysts measure no more than 1.1 cm. Incidentally noted is mild splenomegaly measuring 12.1 x 9 cm. IMPRESSION: 1. Increased cortical echogenicity compatible with chronic medical renal disease. 2. Small bilateral renal cysts. 3. Mild splenomegaly. Signer Name: Ochoa Middleton MD Signed: 11/19/2018 2:42 PM Workstation Name: [id number]
--- NOTE | 2018-11-19 17:32 | Progress Note ---
Assessment and Plan Assessment and plan: --Hypertensive emergency; present on admission Blood pressures on presentation to ED 253/174, 240/157,214/121 s/p cardene drip, on multiple high doses of antihypertensives And when necessary hydralazine, blood pressure is moderately controlled --Chest pain chest pain probably nonspecific, secondary to hypertensive emergency Serial cardiac enzymes, EKG, cardiology consult; ----Non-ST elevation [place]; cardiology following Possible stress test tomorrow --History of Aortic dissection repair --Acute on chronic diastolic congestive heart failure; Continue anti-failure medications, cardiology consult if needed --Chronic kidney disease; closely monitor renal function Avoid nephrotoxins, nephrology consult if needed --History of gout: Continue allopurinol --Morbid obesity; BMI 42.5 advised weight reduction and medically stable --DVT prophylaxis; Lovenox Monitor closely and adjust management as needed Plan of care reviewed with the patient and the family member at the bedside I also discussed with patient's nurse Consults and recommendations noted and appreciated Disposition ;Follow stress test , if negative and patient is stable to be discharged home History Interval history: Patient seen and examined medical records reviewed Patient seems slightly better no new complaints Blood pressure is still uncontrolled Cardiology scheduled for stress test tomorrow Hospitalist Physical - Constitutional Vitals: Temp Pulse Resp BP Pulse Ox 98.1 F 66 20 155/99 98 11/19/18 07:21 11/19/18 13:59 11/19/18 10:00 11/19/18 13:59 11/19/18 10:00 General appearance: Present: no acute distress, well-nourished, obese - EENT Eyes: Present: PERRL, EOM intact - Neck Neck: Present: supple, normal ROM - Respiratory Respiratory effort: normal Respiratory: bilateral: diminished, negative: rales, rhonchi, wheezing - Cardiovascular Rhythm: regular Heart Sounds: Present: S1 & S2 - Extremities Extremities: no ischemia, No edema - Abdominal General gastrointestinal: soft, non-tender, non-distended, normal bowel sounds - Integumentary Integumentary: Present: clear, warm - Psychiatric Psychiatric: appropriate mood/affect, cooperative - Neurologic Neurologic: CNII-XII intact, moves all extremities Results - Labs CBC & Chem 7: 11/19/18 06:03 11/19/18 06:03 Labs: Laboratory Last Values WBC 5.1 K/mm3 (4.5-11.0) 11/19/18 06:03 RBC 4.91 M/mm3 (3.65-5.03) 11/19/18 06:03 Hgb 13.9 gm/dl (11.8-15.2) 11/19/18 06:03 Hct 42.9 % (35.5-45.6) 11/19/18 06:03 MCV 88 fl (84-94) 11/19/18 06:03 MCH 28 pg (28-32) 11/19/18 06:03 MCHC 32 % (32-34) 11/19/18 06:03 RDW 18.2 % (13.2-15.2) H 11/19/18 06:03 Plt Count 196 K/mm3 (140-440) 11/19/18 06:03 Lymph % (Auto) 13.3 % (13.4-35.0) L 11/17/18 04:13 [place] % (Auto) 8.2 % (0.0-7.3) H 11/17/18 04:13 Eos % (Auto) 5.2 % (0.0-4.3) H 11/17/18 04:13 Baso % (Auto) 0.8 % (0.0-1.8) 11/17/18 04:13 Lymph # 1.0 K/mm3 (1.2-5.4) L 11/17/18 04:13 [place] # 0.6 K/mm3 (0.0-0.8) 11/17/18 04:13 Eos # 0.4 K/mm3 (0.0-0.4) 11/17/18 04:13 Baso # 0.1 K/mm3 (0.0-0.1) 11/17/18 04:13 Seg Neutrophils % 72.5 % (40.0-70.0) H 11/17/18 04:13 Seg Neutrophils # 5.2 K/mm3 (1.8-7.7) 11/17/18 04:13 PT 13.7 Sec. (12.2-14.9) 11/16/18 19:30 INR 1.08 (0.87-1.13) 11/16/18 19:30 APTT 24.1 Sec. (24.2-36.6) L 11/16/18 19:30 Sodium 139 mmol/L (137-145) 11/19/18 06:03 Potassium 4.5 mmol/L (3.6-5.0) 11/19/18 06:03 Chloride 103.1 mmol/L (98-107) 11/19/18 06:03 Carbon Dioxide 25 mmol/L (22-30) 11/19/18 06:03 15 mmol/L 11/19/18 06:03 BUN 32 mg/dL (9-20) H 11/19/18 06:03 2.5 mg/dL (0.8-1.5) H 11/19/18 06:03 Estimated GFR 36 ml/min 11/19/18 06:03 13 % 11/19/18 06:03 Glucose 104 mg/dL (75-100) H 11/19/18 06:03 POC Glucose 78 (70-105) 11/19/18 12:39 Calcium 8.3 mg/dL (8.4-10.2) L 11/19/18 06:03 Phosphorus 3.90 mg/dL (2.5-4.5) 11/19/18 06:03 Magnesium 2.20 mg/dL (1.7-2.3) 11/18/18 03:51 0.50 mg/dL (0.1-1.2) 11/18/18 03:51 AST 21 units/L (5-40) 11/18/18 03:51 ALT 7 units/L (7-56) 11/18/18 03:51 92 units/L (35-129) 11/18/18 03:51 148 units/L (55-170) 11/18/18 03:51 CK-MB (CK-2) 3.1 ng/mL (0.0-4.0) 11/18/18 03:51 CK-MB (CK-2) Rel Index 2.0 (0-4) 11/18/18 03:51 0.040 ng/mL (0.00-0.029) H 11/18/18 03:51 NT-Pro-B Natriuret Pep 5608 pg/mL (0-450) H 11/16/18 19:30 6.6 g/dL (6.3-8.2) 11/18/18 03:51 2.7 g/dL (3.9-5) L 11/18/18 03:51 0.7 % 11/18/18 03:51 Triglycerides 79 mg/dL (2-149) 11/17/18 04:13 Cholesterol 204 mg/dL (50-199) H 11/17/18 04:13 146 mg/dL (50-130) H 11/17/18 04:13 58 mg/dL (40-59) 11/17/18 04:13 3.51 % 11/17/18 04:13 PTH Intact 219.2 pg/mL (15-65) H 11/19/18 06:03 < 1.0 /HPF (0.0-6.0) 11/18/18 17:55 < 1.0 /HPF (0.0-6.0) 11/18/18 17:55 U Epithel Cells (Auto) < 1.0 /HPF (0-13.0) 11/18/18 17:55 Few /HPF 11/18/18 17:55 116.5 mg/dL (0.1-20.0) H 11/18/18 17:55 163.5 mg/dL (0.1-34.0) H 11/18/18 17:55 Microalb/Creat Ratio 1403.4 ug/mg 11/18/18 17:55 84 mmol/L 11/18/18 17:55 229 mg/dL (5-11.8) H 11/18/18 17:55 Presumptive negative 11/18/18 12:43 Presumptive negative 11/18/18 12:43 Ur Barbiturates Screen Presumptive negative 11/18/18 12:43 Ur Phencyclidine Scrn Presumptive negative 11/18/18 12:43 Ur Amphetamines Screen Presumptive negative 11/18/18 12:43 U Benzodiazepines Scrn Presumptive negative 11/18/18 12:43 Presumptive negative 11/18/18 12:43 U Marijuana (THC) Screen Presumptive negative 11/18/18 12:43 Disclamer 11/18/18 12:43 Active Medications - Current Medications Current Medications: Generic Name Dose Route Start Last Admin Trade Name Freq PRN Reason Stop Dose Admin Acetaminophen 650 mg 11/16/18 21:42 11/17/18 14:20 Tylenol PO 650 mg Q4H PRN Administration Pain MILD(1-3)/Fever >100.5/BAHENA Allopurinol 50 mg 11/18/18 10:00 11/19/18 09:24 Zyloprim PO 50 mg QDAY AYESHA Administration Amlodipine Besylate 10 mg 11/18/18 12:00 11/19/18 09:25 Norvasc PO 10 mg QDAY AYESHA Administration Atorvastatin Calcium 20 mg 11/18/18 22:00 11/18/18 21:47 Lipitor PO 20 mg QHS AYESHA Administration Bumetanide 2 mg 11/20/18 10:00 Bumex PO QDAY AYESHA Carvedilol 25 mg 11/17/18 12:00 11/19/18 09:24 Coreg PO 25 mg BID AYESHA Administration Clonidine HCl 0.2 mg 11/17/18 12:00 11/19/18 09:24 Catapres PO 0.2 mg Q12HR AYESHA Administration Enoxaparin Sodium 40 mg 11/17/18 10:00 11/19/18 09:23 Lovenox SUB-Q 40 mg QDAY@1000 AYESHA Administration Hydralazine HCl 100 mg 11/19/18 14:00 11/19/18 13:59 Apresoline PO 100 mg Q8HR AYESHA Administration Hydromorphone HCl 1 mg 11/18/18 10:45 Dilaudid IV Q6H PRN Pain , Severe (7-10) Ondansetron HCl 4 mg 11/16/18 21:42 11/16/18 23:27 Zofran IV 4 mg Q8H PRN Administration Nausea And Vomiting Oxycodone/Acetaminophen 1 tab 11/17/18 06:01 11/19/18 13:59 Percocet 5/325 PO 1 tab Q4H PRN Administration Pain, Moderate (4-6) Sodium Chloride 10 ml 11/16/18 22:00 11/19/18 09:26 Sodium Chloride Flush Syringe 10 Ml IV 10 ml BID AYESHA Administration Sodium Chloride 10 ml 11/16/18 21:42 Sodium Chloride Flush Syringe 10 Ml IV PRN PRN LINE FLUSH
[2018-11-20] MEDS: PERCOCET 5/325 PO PRN ×2 (03:57→13:01)
[2018-11-20] MEDS: APRESOLINE PO SCH ×2 (05:30→13:38)
[2018-11-20 06:00] LABS: Hematocrit 44.8 % (35.5-45.6); Hemoglobin 14.4 gm/dl (11.8-15.2); Mean Corpuscular HGB Conc 32 % (32-34); Mean Corpuscular Volume 88 fl (84-94); Platelet Count 191 K/mm3 (140-440); Red Blood Count 5.12 M/mm3 (3.65-5.03); Red Cell Distribution Width 18.3 % (13.2-15.2)
[2018-11-20 06:22] LABS: Calcium 8.6 mg/dL (8.4-10.2)
[2018-11-20] MEDS ORDERED: LEXISCAN IV ONE ×2 (07:17→07:38)
[2018-11-20] MEDS: SODIUM CHLORIDE FLUSH SYRINGE 10 ML IV SCH (10:00)
[2018-11-20] MEDS ORDERED: BUMEX PO SCH (10:00)
[2018-11-20] MEDS: CATAPRES PO SCH (10:50)
[2018-11-20] MEDS: COREG PO SCH (10:50)
[2018-11-20] MEDS: LOVENOX SUB-Q SCH (10:50)
[2018-11-20] MEDS: NORVASC PO SCH (11:00)
--- NOTE | 2018-11-20 11:19 | Progress Note ---
Assessment and Plan Assessment: Acute Kidney Injury on CKD in setting of Hypertensive emergency, vs progression of CKD Hypertensive Emergency Chest Pain Acute on chronic Diastolic congestive heart failure Hx of Aortic Dissection s/p repair about 2 yrs ago Plan: - Renal function reviewed, SCr level is 2.3 today, yesterday's SCr level was 2.5, non-oliguric - JL on CKD vs progression of CKD - On Bumex 1 mg IV BID - Renal US-chronic medical disease - CXR on 11/16/18 showed no acute findings - Cardiology and Pulmonology on board - Renally dose medications - Strict I&O monitoring - Muñoz Catheter: No - Continue to monitor renal function Subjective Date of service: 11/18/18 Principal diagnosis: acute on chronic kidney failure Interval history: Patient seen lying in bed. States have pain to foot. Objective - Vital Signs Vital signs: Vital Signs - 12hr 11/19/18 11/19/18 11/20/18 23:17 23:54 03:57 Temperature 97.9 F Pulse Rate 72 Respiratory 18 18 18 Rate Blood Pressure 131/68 O2 Sat by Pulse 97 Oximetry 11/20/18 11/20/18 11/20/18 04:46 04:57 05:30 Temperature 98.1 F Pulse Rate 66 66 Respiratory 18 18 Rate Blood Pressure 162/101 162/101 O2 Sat by Pulse 96 Oximetry 11/20/18 11/20/18 11/20/18 09:14 09:31 09:36 Temperature Pulse Rate Respiratory Rate Blood Pressure 165/103 189/118 167/103 O2 Sat by Pulse Oximetry 11/20/18 11/20/18 11/20/18 09:37 09:39 09:40 Temperature Pulse Rate Respiratory Rate Blood Pressure 176/98 173/106 160/98 O2 Sat by Pulse Oximetry 11/20/18 09:42 Temperature Pulse Rate Respiratory Rate Blood Pressure 161/98 O2 Sat by Pulse Oximetry - General Appearance General appearance: well-developed, fatigue EENT: ATNC, PERRL, hearing intact, vision intact Neck: no JVD, supple Respiratory: Present: Decreased Breath Sounds Cardiology: S1S2 Gastrointestinal: normoactive bowel sounds Integumentary: warm and dry Neurologic: alert and oriented x3 Psychiatric: other (1+ edema to BLE) - Lab 11/20/18 05:41 11/20/18 05:41 Most recent lab results Calcium 8.6 mg/dL (8.4-10.2) 11/20/18 05:41 Phosphorus 3.90 mg/dL (2.5-4.5) 11/19/18 06:03 Magnesium 2.20 mg/dL (1.7-2.3) 11/18/18 03:51 116.5 mg/dL (0.1-20.0) H 11/18/18 17:55 84 mmol/L 11/18/18 17:55 229 mg/dL (5-11.8) H 11/18/18 17:55 Medications & Allergies - Medications Allergies/Adverse Reactions: Allergies AYLIN Inhibitors Allergy (Verified 11/16/18 20:37) Unknown aspirin Allergy (Verified 11/12/18 03:21) Bleeding Home Medications: Home Medications Medication Instructions Recorded Confirmed Last Taken Type Allopurinol [Zyloprim] 0.5 tab PO QDAY 11/16/18 11/16/18 Unknown History Bumetanide [Bumetanide 2 mg tab] 2 mg PO BID 11/16/18 11/16/18 Unknown History Carvedilol [Coreg] 25 mg PO BID 11/16/18 11/16/18 Unknown History Clonidine HCl [Catapres] 1 tab PO Q12HR 11/16/18 11/16/18 Unknown History Hydralazine HCl 50 mg PO Q8HR 11/16/18 11/16/18 Unknown History NIFEdipine [Nifedipine ER] 60 mg PO DAILY 11/16/18 11/16/18 Unknown History Active Medications: Generic Name Dose Route Start Last Admin Trade Name Freq PRN Reason Stop Dose Admin Acetaminophen 650 mg 11/16/18 21:42 11/17/18 14:20 Tylenol PO 650 mg Q4H PRN Administration Pain MILD(1-3)/Fever >100.5/BAHENA Allopurinol 50 mg 11/18/18 10:00 11/19/18 09:24 Zyloprim PO 50 mg QDAY AYESHA Administration Amlodipine Besylate 10 mg 11/18/18 12:00 11/19/18 09:25 Norvasc PO 10 mg QDAY AYESHA Administration Atorvastatin Calcium 20 mg 11/18/18 22:00 11/19/18 22:20 Lipitor PO 20 mg QHS AYESHA Administration Bumetanide 2 mg 11/20/18 10:00 Bumex PO QDAY AYESHA Carvedilol 25 mg 11/17/18 12:00 11/19/18 22:18 Coreg PO 25 mg BID AYESHA Administration Clonidine HCl 0.2 mg 11/17/18 12:00 11/19/18 22:20 Catapres PO 0.2 mg Q12HR AYESHA Administration Enoxaparin Sodium 40 mg 11/17/18 10:00 11/19/18 09:23 Lovenox SUB-Q 40 mg QDAY@1000 AYESHA Administration Hydralazine HCl 100 mg 11/19/18 14:00 11/20/18 05:30 Apresoline PO 100 mg Q8HR AYESHA Administration Hydromorphone HCl 1 mg 11/18/18 10:45 Dilaudid IV Q6H PRN Pain , Severe (7-10) Ondansetron HCl 4 mg 11/16/18 21:42 11/16/18 23:27 Zofran IV 4 mg Q8H PRN Administration Nausea And Vomiting Oxycodone/Acetaminophen 1 tab 11/17/18 06:01 11/20/18 03:57 Percocet 5/325 PO 1 tab Q4H PRN Administration Pain, Moderate (4-6) Sodium Chloride 10 ml 11/16/18 22:00 11/19/18 22:20 Sodium Chloride Flush Syringe 10 Ml IV 10 ml BID AYESHA Administration Sodium Chloride 10 ml 11/16/18 21:42 Sodium Chloride Flush Syringe 10 Ml IV PRN PRN LINE FLUSH
[2018-11-20] MEDS: ZYLOPRIM PO SCH (11:31)
--- NOTE | 2018-11-20 11:36 | Progress Note ---
Assessment and Plan S/p lexiscan MPI stress test this AM which was negative for ischemia, EF 40%. Pt has presumably nonischemic CMP. Currently stable cardiac status. Pt may discharge home from cardiology standpoint on current cardiac regimen. Recommend pt follow up with either [facility] or in our office with Dr. Navarro within 3-5 days of hospital discharge ([phone]). The patient has been seen in conjunction with Dr. Rubio who agrees with the assessment and plan of care. - Patient Problems (1) Acute on chronic systolic and diastolic heart failure, NYHA class 2 Current Visit: Yes Status: Resolved (2) H/O: gout Current Visit: Yes Status: Chronic (3) Abnormal ECG Current Visit: No Status: Chronic (4) Acute on chronic kidney failure Current Visit: No Status: Acute (5) Chest pain Current Visit: No Status: Resolved (6) Elevated troponin Current Visit: No Status: Acute (7) Hypertensive emergency Current Visit: No Status: Resolved (8) Morbid obesity with BMI of 40.0-44.9, adult Current Visit: No Status: Chronic (9) S/P aortic dissection repair Current Visit: No Status: Chronic Subjective Date of service: 11/20/18 Principal diagnosis: acute on chronic kidney failure Interval history: pt for stress test Objective Last Vital Signs Temp 98.1 F 11/20/18 04:46 Pulse 72 11/20/18 11:00 Resp 18 11/20/18 04:57 BP 152/78 11/20/18 11:00 Pulse Ox 96 11/20/18 04:46 - Physical Examination General: No Apparent Distress HEENT: Positive: PERRL Neck: Positive: neck supple. Negative: JVD/HJR Cardiac: Positive: Reg Rate and Rhythm, S1/S2 Lungs: Positive: Decreased Breath Sounds Neuro: Positive: Grossly Intact Abdomen: Positive: Soft, Active Bowel Sounds Skin: Positive: Clear. Negative: Rash Musculoskeletal: No Fluid Collection, No Pain, Normal Range of Motion Extremities: Present: upper extr. pulses, lower extr. pulses, edema (Trace) - Labs and Meds CBC 11/20/18 Range/Units 05:41 WBC 5.2 (4.5-11.0) K/mm3 RBC 5.12 H (3.65-5.03) M/mm3 Hgb 14.4 (11.8-15.2) gm/dl Hct 44.8 (35.5-45.6) % Plt Count 191 (140-440) K/mm3 Comprehensive Metabolic Panel 11/20/18 Range/Units 05:41 Sodium 140 (137-145) mmol/L Potassium 4.6 (3.6-5.0) mmol/L Chloride 101.2 (98-107) mmol/L Carbon Dioxide 26 (22-30) mmol/L BUN 38 H (9-20) mg/dL Creatinine 2.3 H (0.8-1.5) mg/dL Glucose 91 (75-100) mg/dL Calcium 8.6 (8.4-10.2) mg/dL - Imaging and Cardiology EKG: report reviewed, image reviewed - EKG Sinus rhythms and dysrhythmias: sinus rhythm AV and intraventricular conduction: 1 AV block, left anterior fascicular Repolarization changes or abnormalities: Q-T interval prolongation
[2018-11-20 13:39] VITALS: BP 147/86
--- NOTE | 2018-11-20 14:08 | Discharge Summary ---
Providers - Providers Date of Admission: 11/16/18 21:42 Date of discharge: 11/20/18 Attending physician: ROSARIO VANEGAS 11/16/18 21:42 Consult to Physician [CONS] Routine Comment: Consulting Provider: CASEY BUENO Physician Instructions: Reason For Exam: cc 11/17/18 15:31 Consult to Physician [CONS] Routine Comment: Consulting Provider: QUEENIE CASILLAS Physician Instructions: Reason For Exam: Acute on CKD 11/18/18 10:53 Consult to Physician [CONS] Routine Comment: Consulting Provider: CORNELL BENAVIDEZ Physician Instructions: Reason For Exam: Atypical chest pain/positive CE Primary care physician: MICROPALEONTOLOGIST Hospitalization Reason for admission: Chest pain, hypertensive emergency Condition: Fair Pertinent studies: Chest x-ray; negative Renal ultrasound; increased cortical echogenicity compatible with chronic medical renal disease, small bilateral renal cysts, mild splenomegaly Stress test; negative for ischemia[pulmonary report given by [employer] PRINTING MACHINIST Miss Anay Xiong], cleared for discharge Hospital course: 33-year-old man with a history of hypertension, CHF, gout status post aortic dissection repair is emergency room with complaints of chest pain. Patient was initially evaluated in the ED noted to have hypertensive emergency with blood pressures ranging from 253/174 diastolic patient received multiple doses of IV antihypertensives subsequently started on Cardene drip, admitted to ICU, medications were optimized, patient also had non-ST elevation [place], probably secondary to hypertensive cardiomyopathy, evaluated by cardiology, medications optimized, underwent stress test which was negative for ischemia Today patient is comfortable no new complaints vital signs stable physical examination is unremarkable Patient has chronic kidney disease evaluation by power lineman, creatinine levels stayed high stable. Cleared by cardiology for discharge and follow-up with them as well as the nephrology and primary care physician to schedule/ Medical noncompliance, preventive counseling done advised the importance of adhering to the treatment diet and follow up visits Discharge diagnosis; --Hypertensive emergency; present on admission Blood pressures on presentation to ED 253/174, 240/157,214/121 s/p cardene drip, on multiple high doses of antihypertensives And when necessary hydralazine, blood pressure is moderately controlled --Chest pain chest pain probably nonspecific, secondary to hypertensive emergency Serial cardiac enzymes, EKG, cardiology consult; --Non-ST elevation [place]; Stress test negative, cardiology following Symptoms of chest pain probably secondary to hypertensive cardiomyopathy --GERD; probably contributing to chest pain Protonix supportive care --History of Aortic dissection repair --Acute on chronic diastolic congestive heart failure; Continue anti-failure medications, cardiology consult if needed --Chronic kidney disease; closely monitor renal function Avoid nephrotoxins, nephrology consult if needed --History of gout: Continue allopurinol --Morbid obesity; BMI 42.5 advised weight reduction and medically stable --DVT prophylaxis; Lovenox Stress test negative Disposition: DC-30 STILL A PATIENT Time spent for discharge: 32 min Core Measure Documentation - Palliative Care Palliative Care/ Comfort Measures: Not Applicable - Core Measures Any of the following diagnoses?: none Exam - Constitutional Vitals: Temp Pulse Resp BP Pulse Ox 98.1 F 72 18 147/86 96 11/20/18 04:46 11/20/18 13:38 11/20/18 04:57 11/20/18 13:38 11/20/18 04:46 General appearance: Present: no acute distress, well-nourished - EENT Eyes: Present: PERRL, EOM intact - Neck Neck: Present: supple, normal ROM - Respiratory Respiratory effort: normal Respiratory: bilateral: diminished, negative: rales, rhonchi, wheezing - Cardiovascular Rhythm: regular Heart Sounds: Present: S1 & S2 - Extremities Extremities: no ischemia, No edema - Abdominal General gastrointestinal: Present: soft, non-tender, non-distended, normal bowel sounds - Integumentary Integumentary: Present: clear, warm - Musculoskeletal Musculoskeletal: strength equal bilaterally - Psychiatric Psychiatric: appropriate mood/affect, cooperative - Neurologic Neurologic: CNII-XII intact, moves all extremities Plan Activity: advance as tolerated Diet: other (cardiac diet) Additional Instructions: Advised to comply with medications and diet as well as follow-up visits. If you have chest pain or shortness of breath contact M.D. or go to emergency room Follow up with: PRIMARY MD LITO [Primary Care Provider] - 3-5 Days CORNELL BENAVIDEZ MD [Staff Physician] - 7 Days TONY HOPKINS MD [Staff Physician] - 7 Days Prescriptions: hydrALAZINE [Apresoline TAB] 100 mg PO TID #90 tab cloNIDine [Catapres] 0.2 mg PO Q12HR #60 tablet Carvedilol [Coreg] 25 mg PO BID #60 tablet AtorvaSTATin [Lipitor] 20 mg PO QHS #30 tablet NIFEdipine [Nifedipine ER] 60 mg PO DAILY #30 tab.[id number]
--- NOTE | 2018-11-21 04:01 | Treadmill Report ---
LEXISCAN STRESS NUCLEAR SCAN AGE: 33 SEX: Male Seen and dictated by Dr. Norma Rubio. DESCRIPTION OF PROCEDURE: The patient received 10 mCi of technetium 99m Myoview intravenously under resting conditions. Resting myocardial perfusion scan was done. Subsequently, the patient underwent Lexiscan stress test as per the protocol. During Lexiscan stress, the patient received 28 mCi of technetium 99m Myoview intravenously. After 30-60 minutes, post stress images were done. Computerized reconstruction images were performed for analysis. The post-stress images did not reveal any perfusion abnormality. Gated study revealed moderate global left ventricular hypokinesia with moderate left ventricular systolic dysfunction with the LVEF of 40%. The resting images did not reveal any perfusion abnormality. CONCLUSIONS: 1. No perfusion abnormality of the left ventricular myocardium was demonstrated in the resting as well as stress images after the patient underwent Lexiscan stress test. 2. Gated studies revealed moderate global left ventricular hypokinesia with moderate left ventricular systolic dysfunction with LVEF of 40%. PSYCHIATRIC# [id number] [facility]
== END 2018-11-21 00:16 | disposition home or self-care (01) | DRG 280 ==
LOC: ED 18:07 → CC1 21:42 → 4A 11-18 19:56
PROVIDERS: ADMIT Internal Medicine; ATTEND Internal Medicine
DX: I21.4 Non-ST elevation (NSTEMI) myocardial infarction (principal); I50.43 Acute on chronic combined systolic (congestive) and diastolic (congestive) heart failure; I13.0 Hypertensive heart and chronic kidney disease with heart failure and stage 1 through stage 4 chronic kidney disease, or unspecified chronic kidney disease; N17.9 Acute kidney failure, unspecified; I16.1 Hypertensive emergency; M10.9 Gout, unspecified; N28.1 Cyst of kidney, acquired; R16.1 Splenomegaly, not elsewhere classified; I43 Cardiomyopathy in diseases classified elsewhere; E78.00 Pure hypercholesterolemia, unspecified; E66.01 Morbid (severe) obesity due to excess calories; N18.3 Chronic kidney disease, stage 3 (moderate); Z82.49 Family history of ischemic heart disease and other diseases of the circulatory system; Z88.8 Allergy status to other drugs, medicaments and biological substances; Z79.899 Other long term (current) drug therapy; Z68.41 Body mass index [BMI] 40.0-44.9, adult; Z95.2 Presence of prosthetic heart valve; Z91.19 Patient's noncompliance with other medical treatment and regimen; Z71.89 Other specified counseling
CPT/HCPCS: 36415; 71045; 76770; 78452; 80048; 80053; 80061; 80307; 81015; 82043; 82550; 82553; 82962; 83735; 83880; 83970; 84100; 84156; 84300; 84484; 85025; 85027; 85610; 85730; 93005; 93010; 93017; 94760; G0378; A9270-GY; A9502; J0360; J1170; J1650; J1940; J2270; J2405; J2785; J7050

== ENCOUNTER 2019-09-18 15:32 | Inpatient (IN) | payer MEDICAID ==
--- NOTE | 2019-09-18 16:17 | XRay Report ---
CHEST 2 VIEWS INDICATION: Chest Pain. COMPARISON: 11/16/2018 FINDINGS: Support devices: None. Heart: Persisting cardiac enlargement Lungs: Airspace process involving both lower lobes Pleura: No significant pleural effusion. No pneumothorax. Additional findings: None. IMPRESSION: 1. Airspace changes both lower lobes pneumonia is a concern Signer Name: Jesús Talbert MD Signed: 09/18/2019 4:12 PM Workstation Name: [id number]
[2019-09-18] MEDS ORDERED: MORPHINE 4 MG/1 ML INJ IV ONE ×2 (16:40→19:01)
[2019-09-18] MEDS ORDERED: ONDANSETRON 4 MG/2 ML INJ IV ONE (16:40)
--- NOTE | 2019-09-18 16:45 | Emergency Department Report ---
ED Shortness of Breath HPI - General Chief Complaint: Chest Pain Stated Complaint: CHEST PAIN,DIZZY Time Seen by Provider: 09/18/19 16:25 Source: patient, old records reviewed (last admission here: 11/10/18 neg stress test EF 40&) Mode of arrival: Ambulatory Limitations: No Limitations - History of Present Illness Initial Comments: 34-year-old male with a past medical history of CHF with a EF of 40%, hypertension, aortic dissection, and open heart surgery aortic valve replacement presents to the hospital complaining of generalized swelling for 2 weeks and shortness of breath x3 days. Patient complains of generalized body aches and dull intermittent sternal chest pain exacerbated by cough. Patient does complain of a cough productive of clear sputum but denies fever or known COVID exposures. Patient is compliant with all his medications but does not have a list of them currently. Last admission here in October 2018. Patient had a negative stress test with a EF of 40% during that admission. Patient's diesel powerplant mechanic helper is Dr. Pérez affiliated with [facility] patient does not have a primary care doctor. Patient states his allergy to aspirin includes bleeding from his nose which then caused him to vomit blood. He denies history of peptic ulcer disease. - Related Data Home Medications Medication Instructions Recorded Confirmed Last Taken Bumetanide [Bumetanide 2 mg tab] 2 mg PO BID 11/16/18 11/16/18 Unknown allopurinoL [Zyloprim] 0.5 tab PO QDAY 11/16/18 11/16/18 Unknown Previous Rx's Medication Instructions Recorded Last Taken Type AtorvaSTATin [Lipitor] 20 mg PO QHS #30 tablet 11/20/18 Unknown Rx NIFEdipine [Nifedipine ER] 60 mg PO DAILY #30 tab.er.24 11/20/18 Unknown Rx carvediloL [Coreg] 25 mg PO BID #60 tablet 11/20/18 Unknown Rx cloNIDine [Catapres] 0.2 mg PO Q12HR #60 tablet 11/20/18 Unknown Rx hydrALAZINE [Apresoline TAB] 100 mg PO TID #90 tab 11/20/18 Unknown Rx Allergies Allergy/AdvReac Type Severity Reaction Status Date / Time AYLIN Inhibitors Allergy Unknown Verified 11/16/18 20:37 aspirin Allergy Bleeding Verified 11/12/18 03:21 ED Review of Systems ROS: Stated complaint: CHEST PAIN,DIZZY Other details as noted in HPI Comment: All other systems reviewed and negative ED Past Medical Hx - Past Medical History Previous Medical History?: Yes Hx Hypertension: Yes Hx Congestive Heart Failure: Yes Hx Diabetes: No Hx Renal Disease: Yes (Chronic renal insufficiency) Hx Asthma: No Hx COPD: No Additional medical history: Aortic Dissection, Gout - Surgical History Past Surgical History?: Yes Hx Open Heart Surgery: Yes Additional Surgical History: Aortic valve replacecment (porcine) - Social History Smoking Status: Never Smoker Substance Use Type: None - Medications Home Medications: Home Medications Medication Instructions Recorded Confirmed Last Taken Type Bumetanide [Bumetanide 2 mg tab] 2 mg PO BID 11/16/18 11/16/18 Unknown History allopurinoL [Zyloprim] 0.5 tab PO QDAY 11/16/18 11/16/18 Unknown History AtorvaSTATin [Lipitor] 20 mg PO QHS #30 tablet 11/20/18 Unknown Rx NIFEdipine [Nifedipine ER] 60 mg PO DAILY #30 tab.er.24 11/20/18 Unknown Rx carvediloL [Coreg] 25 mg PO BID #60 tablet 11/20/18 Unknown Rx cloNIDine [Catapres] 0.2 mg PO Q12HR #60 tablet 11/20/18 Unknown Rx hydrALAZINE [Apresoline TAB] 100 mg PO TID #90 tab 11/20/18 Unknown Rx ED Physical Exam - General Limitations: No Limitations - Other Other exam information: General: No acute distress Head: Atraumatic Eyes: normal appearance ENT: Moist mucous membranes Neck: Normal appearance, no midline tenderness Chest: Bibasilar crackles with mild expiratory wheezing at the base CV: Regular rate and rhythm Abdomen: Soft, normal bowel sounds, mild edema to stomach, no tenderness, rebound or guarding Back: Normal inspection Extremity: Bilateral lower extremity 3+ edema, mild edema to bilateral hand Neuro: Alert O x 3, no facial asymmetry, speech clear, no gross motor sensory deficit Psych: Appropriate behavior Skin: No rash ED Course Vital Signs 09/18/19 09/18/19 09/18/19 15:38 16:11 16:26 Temperature 98.7 F 98.6 F Pulse Rate 90 91 H Respiratory 24 16 Rate Blood Pressure 211/133 Blood Pressure 187/125 [Right] O2 Sat by Pulse 94 87 92 Oximetry 09/18/19 09/18/19 09/18/19 16:46 17:00 17:02 Temperature Pulse Rate 80 86 Respiratory 24 20 18 Rate Blood Pressure 187/125 177/129 Blood Pressure [Right] O2 Sat by Pulse 96 93 Oximetry 09/18/19 09/18/19 09/18/19 17:16 17:30 17:45 Temperature Pulse Rate 92 H 81 86 Respiratory 24 25 H 22 Rate Blood Pressure 167/108 167/108 177/108 Blood Pressure [Right] O2 Sat by Pulse 91 91 90 Oximetry 09/18/19 09/18/19 09/18/19 18:00 18:16 18:30 Temperature Pulse Rate 86 87 83 Respiratory 23 23 22 Rate Blood Pressure 185/113 181/115 181/115 Blood Pressure [Right] O2 Sat by Pulse 93 91 93 Oximetry 09/18/19 09/18/19 09/18/19 18:46 19:00 19:16 Temperature Pulse Rate 87 80 88 Respiratory 15 19 25 H Rate Blood Pressure 179/121 184/104 188/113 Blood Pressure [Right] O2 Sat by Pulse 90 88 86 Oximetry 09/18/19 19:31 Temperature Pulse Rate 86 Respiratory 20 Rate Blood Pressure 168/110 Blood Pressure [Right] O2 Sat by Pulse 89 Oximetry - Consultations Consultation #1: 09/18/19 21:[address] Isidro physician interventional cardiologist diesel powerplant mechanic helper for [facility]. will consult ED Medical Decision Making - Lab Data Result diagrams: 09/18/19 16:18 09/18/19 18:06 Lab Results 09/18/19 09/18/19 09/18/19 Range/Units 16:18 16:18 16:18 WBC 7.7 (4.5-11.0) K/mm3 RBC 5.58 H (3.65-5.03) M/mm3 Hgb 15.6 H (11.8-15.2) gm/dl Hct 47.9 H (35.5-45.6) % MCV 86 (84-94) fl MCH 28 (28-32) pg MCHC 33 (32-34) % RDW 17.1 H (13.2-15.2) % Plt Count 185 (140-440) K/mm3 Lymph % (Auto) 11.9 L (13.4-35.0) % Wilkes % (Auto) 9.7 H (0.0-7.3) % Eos % (Auto) 5.1 H (0.0-4.3) % Baso % (Auto) 1.3 (0.0-1.8) % Lymph # 0.9 L (1.2-5.4) K/mm3 Wilkes # 0.7 (0.0-0.8) K/mm3 Eos # 0.4 (0.0-0.4) K/mm3 Baso # 0.1 (0.0-0.1) K/mm3 Seg Neutrophils % 72.0 H (40.0-70.0) % Seg Neutrophils # 5.5 (1.8-7.7) K/mm3 PT 13.4 (12.2-14.9) Sec. INR 1.01 (0.87-1.13) APTT 28.8 (24.2-36.6) Sec. Sodium TNR Potassium TNR Chloride TNR Carbon Dioxide TNR Anion Gap TNR BUN TNR Creatinine TNR Estimated GFR TNR BUN/Creatinine Ratio TNR Glucose TNR Calcium TNR Magnesium (1.7-2.3) mg/dL Troponin T TNR NT-Pro-B Natriuret Pep TNR Triglycerides TNR Cholesterol TNR LDL Cholesterol Direct TNR HDL Cholesterol TNR Cholesterol/HDL Ratio TNR 05/21/20 Range/Units 18:06 WBC (4.5-11.0) K/mm3 RBC (3.65-5.03) M/mm3 Hgb (11.8-15.2) gm/dl Hct (35.5-45.6) % MCV (84-94) fl MCH (28-32) pg MCHC (32-34) % RDW (13.2-15.2) % Plt Count (140-440) K/mm3 Lymph % (Auto) (13.4-35.0) % Wilkes % (Auto) (0.0-7.3) % Eos % (Auto) (0.0-4.3) % Baso % (Auto) (0.0-1.8) % Lymph # (1.2-5.4) K/mm3 Wilkes # (0.0-0.8) K/mm3 Eos # (0.0-0.4) K/mm3 Baso # (0.0-0.1) K/mm3 Seg Neutrophils % (40.0-70.0) % Seg Neutrophils # (1.8-7.7) K/mm3 PT (12.2-14.9) Sec. INR (0.87-1.13) APTT (24.2-36.6) Sec. Sodium 140 Potassium 4.3 Chloride 102.7 Carbon Dioxide 22 Anion Gap 20 BUN 38 H Creatinine 3.0 H Estimated GFR 29 BUN/Creatinine Ratio 13 Glucose 105 H Calcium 8.5 Magnesium 2.00 (1.7-2.3) mg/dL Troponin T 0.043 H NT-Pro-B Natriuret Pep 93560 H Triglycerides Cholesterol LDL Cholesterol Direct HDL Cholesterol Cholesterol/HDL Ratio - EKG Data -: EKG Interpreted by [facility] EKG shows normal: sinus rhythm, intervals (Prolonged DC interval), ST-T waves (Lateral T wave inversions, PVCs, LVH with repolarization mallet) Rate: normal (93) - EKG Data When compared to previous EKG there are: changes noted 09/18/19 21:22 EP EKG performed at 21: 16 without acute changes. - Radiology Data Radiology results: report reviewed CHEST 2 VIEWS INDICATION: Chest Pain. COMPARISON: 11/16/2018 FINDINGS: Support devices: None. Heart: Persisting cardiac enlargement Lungs: Airspace process involving both lower lobes Pleura: No significant pleural effusion. No pneumothorax. Additional findings: None. IMPRESSION: 1. Airspace changes both lower lobes pneumonia is a concern - Medical Decision Making Patient having symptoms and laboratory findings suggestive of CHF exacerbation. Low suspicion for pneumonia at this time. Patient states he is compliant with medications but presents with worsening CHF and elevated blood pressure. Nitroglycerin drip started for titration of blood pressure and for acute chf exacerbation. Bumex ordered IV for acute CHF. Patient has mild elevation of troponin and has chronically elevated troponin and chronic renal insufficiency. Patient states he cannot take aspirin due to epistaxis which resulted in vomiting blood. Given chronicity of elevated troponin aspirin will be held at this time. Patient does complain of chest pain with cough which is atypical for ACS. No ST elevation CO on EKG. Repeat troponin and EKG pending at disposition. Patient requires several laboratory draws due to hemolysis since he is a difficult IV stick. Patient provided morphine/Zofran for pain. Hospitalist informed for admission. Cardiology consulted. Patient will be admitted to the CCU repeat trop neg, repeat ekg without acute changes. Critical Care Time: Yes Critical care time in (mins) excluding proc time.: 35 Critical care attestation.: If time is entered above; I have spent that time in minutes in the direct care of this critically ill patient, excluding procedure time. ED Disposition Clinical Impression: Chest pain, Acute CHF, Hypertensive emergency, Renal insufficiency, S/P aortic dissection repair, Elevated troponin Disposition: OP ADMIT IP TO THIS HOSP Is pt being admited?: Yes Condition: Stable Time of Disposition: 18:55
[2019-09-18 16:51] LABS: Basophils # (Auto) 0.1 K/mm3 (0.0-0.1); Basophils % (Auto) 1.3 % (0.0-1.8); Eosinophils # (Auto) 0.4 K/mm3 (0.0-0.4); Eosinophils % (Auto) 5.1 % (0.0-4.3); Hematocrit 47.9 % (35.5-45.6); Hemoglobin 15.6 gm/dl (11.8-15.2); Lymphocytes # (Auto) 0.9 K/mm3 (1.2-5.4); Lymphocytes % (Auto) 11.9 % (13.4-35.0); Mean Corpuscular HGB Conc 33 % (32-34); Mean Corpuscular Volume 86 fl (84-94); Monocytes # (Auto) 0.7 K/mm3 (0.0-0.8); Monocytes % (Auto) 9.7 % (0.0-7.3); Platelet Count 185 K/mm3 (140-440); Red Blood Count 5.58 M/mm3 (3.65-5.03); Red Cell Distribution Width 17.1 % (13.2-15.2)
[2019-09-18 17:00] LABS: INR 1.01 (0.87-1.13)
[2019-09-18 17:01] LABS: Partial Thromboplastin Time 28.8 Sec. (24.2-36.6)
[2019-09-18] MEDS: NITROGLYCERIN DRIP 50 MG/250 ML BOTTLE IV SCH (17:02)
[2019-09-18 17:28] LABS: BUN/Creatinine Ratio TNR; Blood Urea Nitrogen TNR mg/dL (9-20); Calcium TNR mg/dL (8.4-10.2)
[2019-09-18 17:29] LABS: Chol/HDL Ratio TNR %; HDL Cholesterol TNR mg/dL (40-59); Hemolysis Index TNR; LDL Cholesterol,Direct TNR mg/dL (50-130)
[2019-09-18 18:38] LABS: Calcium 8.5 mg/dL (8.4-10.2)
[2019-09-18] MEDS ORDERED: BUMETANIDE 1 MG/4 ML INJ IV ONE (18:43)
[2019-09-18] MEDS ORDERED: NITROGLYCERIN DRIP 50 MG/250 ML BOTTLE ONE (23:20)
--- NOTE | 2019-09-19 00:06 | History and Physical Report ---
History of Present Illness Date of examination: 09/18/19 Date of admission: 09/18/19 18:58 Chief complaint: Increasing SOB for 3 days Chest discomfort 1 day History of present illness: 34-year-old male with a past medical history of CHF with a EF of 40%, hypertension, aortic dissection, and open heart surgery for aortic valve replacement presents to the hospital complaining of generalized swelling for 2 weeks and shortness of breath x3 days. Orthopnea present.Class IV NYHA symptoms .SOB on minimal exertion. Patient complains of generalized body aches and dull intermittent sternal chest pain exacerbated by cough. Patient does complain of a cough productive of clear sputum but denies fever or known COVID exposures. Patient is compliant with all his medications but does not have a list of them currently. Last admission here in October 2018. Patient had a negative stress test with a EF of 40% during that admission. Patient's import dispatcher is Dr. Pérez affiliated with [facility] patient does not have a primary care doctor. Patient states his allergy to aspirin includes bleeding from his nose which then caused him to vomit blood. - Past Medical History Previous Medical History?: Yes Hypertension: Yes Congestive Heart Failure: Yes Renal Disease: Yes (Chronic renal insufficiency) Additional medical history: Aortic Dissection, Gout - Surgical History Past Surgical History?: Yes Hx Open Heart Surgery: Yes Additional Surgical History: Aortic valve replacecment (porcine) - Social History Smoking Status: Never Smoker Substance Use Type: None Family History Htn - Medications Home Medications: Home Medications Medication Instructions Recorded Confirmed Last Taken Type Bumetanide [Bumetanide 2 mg tab] 2 mg PO BID 11/16/18 11/16/18 Unknown History allopurinoL [Zyloprim] 0.5 tab PO QDAY 11/16/18 11/16/18 Unknown History AtorvaSTATin [Lipitor] 20 mg PO QHS #30 tablet 11/20/18 Unknown Rx NIFEdipine [Nifedipine ER] 60 mg PO DAILY #30 tab.er.24 11/20/18 Unknown Rx carvediloL [Coreg] 25 mg PO BID #60 tablet 11/20/18 Unknown Rx cloNIDine [Catapres] 0.2 mg PO Q12HR #60 tablet 11/20/18 Unknown Rx hydrALAZINE [Apresoline TAB] 100 mg PO TID #90 tab 11/20/18 Unknown Rx Medications and Allergies Allergies Allergy/AdvReac Type Severity Reaction Status Date / Time AYLIN Inhibitors Allergy Unknown Verified 11/16/18 20:37 aspirin Allergy Bleeding Verified 11/12/18 03:21 Home Medications Medication Instructions Recorded Confirmed Last Taken Type Bumetanide [Bumetanide 2 mg tab] 2 mg PO BID 11/16/18 11/16/18 Unknown History allopurinoL [Zyloprim] 0.5 tab PO QDAY 11/16/18 11/16/18 Unknown History AtorvaSTATin [Lipitor] 20 mg PO QHS #30 tablet 11/20/18 Unknown Rx NIFEdipine [Nifedipine ER] 60 mg PO DAILY #30 tab.er.24 11/20/18 Unknown Rx carvediloL [Coreg] 25 mg PO BID #60 tablet 11/20/18 Unknown Rx cloNIDine [Catapres] 0.2 mg PO Q12HR #60 tablet 11/20/18 Unknown Rx hydrALAZINE [Apresoline TAB] 100 mg PO TID #90 tab 11/20/18 Unknown Rx Active Meds: Active Medications Nitroglycerin/Dextrose (Tridil Drip 50mg/250ml) 50 mg in 250 mls @ 3 mls/hr IV TITR AYESHA; Protocol Last Titration: 09/18/19 23:36 Dose: 190 mcg/min, 57 mls/hr Documented by: Review of Systems All systems: negative Constitutional: weight gain, fatigue Ears, nose, mouth and throat: no ear pain, no ear discharge, no tinnitis, no decreased hearing, no nose pain, no nasal congestion, no nasal discharge, no sinus pressure, no sinus pain Cardiovascular: chest pain, orthopnea, shortness of breath, dyspnea on exertion, paroxysmal nocturnal dyspnea, high blood pressure Respiratory: no cough, no cough with sputum, no excessive sputum, no hemoptysis, no shortness of breath, no dyspnea on exertion Gastrointestinal: no abdominal pain, no nausea, no vomiting, no diarrhea, no constipation, no change in bowel habits, no hematemesis, no coffee ground emesis Genitourinary Male: no dysuria, no hematuria, no flank pain, no discharge, no urinary frequency, no urinary hesitancy, no nocturia Musculoskeletal: no neck stiffness, no neck pain, no shooting arm pain, no arm numbness/tingling, no low back pain, no shooting leg pain, no leg numbness/tingling, no redness of joints Integumentary: no rash, no pruritis, no redness, no sores, no wounds, no jaundice, no boils, no blisters Neurological: no seizures, no syncope Psychiatric: no anxiety, no memory loss, no change in sleep habits, no sleep disturbances, no insomnia, no hypersomnia, no change in appetite, no change in libido, no suicidal ideation Endocrine: no cold intolerance, no heat intolerance, no polyphagia, no excessive thirst, no polydipsia, no polyuria, no nocturia Hematologic/Lymphatic: no easy bruising, no easy bleeding Allergic/Immunologic: no urticaria, no allergic rhinitis, no wheezing Exam - Constitutional Vitals: Temp Pulse Resp BP Pulse Ox 98.6 F 98 H 13 171/105 93 09/18/19 16:26 09/18/19 23:30 09/18/19 23:30 09/18/19 23:30 09/18/19 23:30 General appearance: Present: mild distress, well-nourished - EENT Eyes: Present: PERRL ENT: hearing intact, clear oral mucosa - Neck Neck: Present: supple, normal ROM - Respiratory Respiratory effort: normal Respiratory: bilateral: CTA, rales - Cardiovascular Heart rate: 88 Rhythm: regular Heart Sounds: Present: S1 & S2. Absent: rub, click - Extremities Extremities: pulses symmetrical, No edema Extremity abnormal: edema (3 plus) Peripheral Pulses: within normal limits - Abdominal General gastrointestinal: Present: soft, non-tender, non-distended, normal bowel sounds Male genitourinary: Present: normal - Rectal Rectal Exam: deferred - Integumentary Integumentary: Present: clear, warm, dry - Musculoskeletal Musculoskeletal: gait normal, strength equal bilaterally - Psychiatric Psychiatric: appropriate mood/affect, intact judgment & insight - Neurologic Neurologic: CNII-XII intact, moves all extremities - Allied Health Allied health notes reviewed: nursing, case management HEART Score - HEART Score History: Moderately suspicious Age: < 45 Risk factors: > 3 risk factors or hx of atherosclerotic disease Troponin: Troponin T 0.038 ng/mL (0.00-0.029) H 09/18/19 20:15 Troponin: 1-3x normal limit - Critical Actions Critical Actions: >7 pts:50-65% risk of adverse cardiac event. Early invasive measures Results - Labs CBC & Chem 7: 09/18/19 16:18 09/18/19 18:06 Labs: Laboratory Last Values WBC 7.7 K/mm3 (4.5-11.0) 09/18/19 16:18 RBC 5.58 M/mm3 (3.65-5.03) H 09/18/19 16:18 Hgb 15.6 gm/dl (11.8-15.2) H 09/18/19 16:18 Hct 47.9 % (35.5-45.6) H 09/18/19 16:18 MCV 86 fl (84-94) 09/18/19 16:18 MCH 28 pg (28-32) 09/18/19 16:18 MCHC 33 % (32-34) 09/18/19 16:18 RDW 17.1 % (13.2-15.2) H 09/18/19 16:18 Plt Count 185 K/mm3 (140-440) 09/18/19 16:18 Lymph % (Auto) 11.9 % (13.4-35.0) L 09/18/19 16:18 Bartholomew % (Auto) 9.7 % (0.0-7.3) H 09/18/19 16:18 Eos % (Auto) 5.1 % (0.0-4.3) H 09/18/19 16:18 Baso % (Auto) 1.3 % (0.0-1.8) 09/18/19 16:18 Lymph # 0.9 K/mm3 (1.2-5.4) L 09/18/19 16:18 Bartholomew # 0.7 K/mm3 (0.0-0.8) 09/18/19 16:18 Eos # 0.4 K/mm3 (0.0-0.4) 09/18/19 16:18 Baso # 0.1 K/mm3 (0.0-0.1) 09/18/19 16:18 Seg Neutrophils % 72.0 % (40.0-70.0) H 09/18/19 16:18 Seg Neutrophils # 5.5 K/mm3 (1.8-7.7) 09/18/19 16:18 PT 13.4 Sec. (12.2-14.9) 09/18/19 16:18 INR 1.01 (0.87-1.13) 09/18/19 16:18 APTT 28.8 Sec. (24.2-36.6) 09/18/19 16:18 Sodium 140 mmol/L (137-145) 09/18/19 18:06 Potassium 4.3 mmol/L (3.6-5.0) 09/18/19 18:06 Chloride 102.7 mmol/L (98-107) 09/18/19 18:06 Carbon Dioxide 22 mmol/L (22-30) 09/18/19 18:06 Anion Gap 20 mmol/L 09/18/19 18:06 BUN 38 mg/dL (9-20) H 09/18/19 18:06 Creatinine 3.0 mg/dL (0.8-1.5) H 09/18/19 18:06 Estimated GFR 29 ml/min 09/18/19 18:06 BUN/Creatinine Ratio 13 % 09/18/19 18:06 Glucose 105 mg/dL (75-100) H 09/18/19 18:06 Calcium 8.5 mg/dL (8.4-10.2) 09/18/19 18:06 Magnesium 2.00 mg/dL (1.7-2.3) 09/18/19 18:06 Troponin T 0.038 ng/mL (0.00-0.029) H 09/18/19 20:15 NT-Pro-B Natriuret Pep 32164 pg/mL (0-450) H 09/18/19 18:06 Triglycerides TNR 09/18/19 16:18 Cholesterol TNR 09/18/19 16:18 LDL Cholesterol Direct TNR 09/18/19 16:18 HDL Cholesterol TNR 09/18/19 16:18 Cholesterol/HDL Ratio TNR 09/18/19 16:18 Short CBC 09/18/19 Range/Units 16:18 WBC 7.7 (4.5-11.0) K/mm3 Hgb 15.6 H (11.8-15.2) gm/dl Hct 47.9 H (35.5-45.6) % Plt Count 185 (140-440) K/mm3 BMP 09/18/19 09/18/19 16:18 18:06 Sodium TNR 140 Potassium TNR 4.3 Chloride TNR 102.7 Carbon Dioxide TNR 22 BUN TNR 38 H Creatinine TNR 3.0 H Glucose TNR 105 H Calcium TNR 8.5 Cardiac Enzymes 09/18/19 09/18/19 09/18/19 Range/Units 16:18 18:06 20:15 Troponin T TNR 0.043 H 0.038 H 09/18/19 Range/Units 23:45 Troponin T 0.042 H - Imaging and Cardiology EKG: report reviewed (Sinus rhythm 93/min Ventricular trigeminy,LAFB) Imaging and Cardiology: CXR IMPRESSION: 1. Airspace changes both lower lobes pneumonia is a concern Signer Name: Jesús Talbert MD My reading---Pulmonary vascular congestion.No pneumonnia Muñoz/IV: IV Catheter Type [Right INT / Saline Lock Antecubital] Assessment and Plan Assessment and plan: CCT 40 minutes Advance Directives: Yes (Full code) VTE prophylaxis?: Chemical Plan of care discussed with patient/family: Yes - Patient Problems (1) Hypertensive emergency Current Visit: Yes Status: Acute Plan to address problem: On Nitro drip Titrate to bring BP down to 140/90 Cont antihypertensives (2) Acute on chronic diastolic (congestive) heart failure Current Visit: No Status: Acute Plan to address problem: Last known EF is 40 percent Echo reordered for EF IV lasix and daily weights and I/O Cardiology consult No pneumonia (3) JL (acute kidney injury) Current Visit: Yes Status: Acute Plan to address problem: Secondary to ATN Underlying CKD Nephrology consult (4) Gout Current Visit: Yes Status: Inactive Plan to address problem: Cont allopurinol (5) HLD (hyperlipidemia) Current Visit: Yes Status: Chronic Qualifiers: Hyperlipidemia type: mixed hyperlipidemia Qualified Code(s): E78.2 - Mixed hyperlipidemia Plan to address problem: Cont statins (6) DVT prophylaxis Current Visit: Yes Status: Acute Plan to address problem: On Heparin and Gi prophylaxis
[2019-09-19] MEDS ORDERED: ONDANSETRON 4 MG/2 ML INJ IV PRN ×2 (00:07→00:09)
[2019-09-19] MEDS: NITROGLYCERIN DRIP 50 MG/250 ML BOTTLE IV SCH ×2 (00:09→04:11)
[2019-09-19] MEDS ORDERED: ACETAMINOPHEN 325 MG TAB PO PRN (00:09)
[2019-09-19] MEDS ORDERED: BUMETANIDE 2 MG PO SCH (00:15)
[2019-09-19] MEDS: cloNIDine 0.2 MG TAB PO SCH ×3 (01:12→21:14)
[2019-09-19] MEDS: carvediloL 25 MG TAB PO SCH ×4 (01:13→21:15)
[2019-09-19] MEDS: POTASSIUM CHLORIDE ER 20 MEQ TAB PO SCH ×3 (01:13→21:16)
[2019-09-19] MEDS ORDERED: ACETAMINOPHEN 325 MG TAB ONE ×2 (02:23→09:39)
[2019-09-19] MEDS: ACETAMINOPHEN 325 MG TAB PO PRN ×3 (02:23→17:54)
[2019-09-19] MEDS ORDERED: FUROSEMIDE 40 MG/4 ML INJ IV SCH ×2 (06:00→08:30)
[2019-09-19] MEDS ORDERED: FUROSEMIDE 40 MG/4 ML INJ ONE (06:11)
[2019-09-19] MEDS ORDERED: MORPHINE 2 MG/1 ML INJ IV ONE (06:48)
[2019-09-19] MEDS ORDERED: MORPHINE 2 MG/1 ML INJ ONE (06:51)
[2019-09-19] MEDS ORDERED: hydrALAZINE 100 MG TAB ONE (07:24)
[2019-09-19] MEDS: hydrALAZINE 100 MG TAB PO SCH ×3 (08:05→19:25)
[2019-09-19] MEDS ORDERED: niCARdipine 50 MG in SODIUM CHLORIDE 0.9% 250ML 230 ML IV SCH (09:00)
[2019-09-19] MEDS ORDERED: BUMETANIDE 1 MG/4 ML INJ IV ONE ×2 (09:00→09:09)
--- NOTE | 2019-09-19 09:12 | Progress Note ---
Assessment and Plan Assessment and plan: --Hypertensive emergency; on Cardene drip Will resume patient's multiple home antihypertensive medications Hold Cardene drip and resume if no improvement with oral antihypertensives PRN hydralazine --Acute kidney injury; Vasomotor nephropathy, Nephrology following Monitor renal function avoid nephrotoxins --History of gout; continue allopurinol --Dyslipidemia;On statin --Elevated troponin/possible NSTEMI Probably nonspecific, patient has multiple risk factors, cardiology consulted --Acute on chronic systolic congestive heart failure Follow echocardiogram for LV function ejection fraction Anti-failure medications, follow cardiology recommendations --Morbid obesity; BMI 44 Patient needs weight reduction when medically stable --DVT prophylaxis; Lovenox renal dose Monitor closely and adjust the management as needed Admit to ICU, follow consultants recommendations Plan of care reviewed with the patient and his nurse Critical care time 40 minutes History Interval history: Patient seen and examined in ER awaiting ICU bed assignment Patient is admitted with hypertensive emergency On Cardene drip, patient has multiple antihypertensives which she takes Claims compliance Blood pressures and 180s to 190s systolic Patient complains of some chest pain, headache Vital signs noted Hospitalist Physical - Constitutional Vitals: Temp Pulse Resp BP Pulse Ox 98.5 F 88 18 184/120 95 09/19/19 07:44 09/19/19 07:44 09/19/19 07:44 09/19/19 07:44 09/19/19 07:44 General appearance: Present: mild distress, well-nourished, obese (Morbid obesity) - EENT Eyes: Present: PERRL, EOM intact - Neck Neck: Present: supple, normal ROM - Respiratory Respiratory effort: normal Respiratory: bilateral: diminished, rales, negative: rhonchi, wheezing - Cardiovascular Rhythm: regular Heart Sounds: Present: S1 & S2 - Extremities Extremities: no ischemia Extremity abnormal: edema - Abdominal General gastrointestinal: soft, non-tender, non-distended, normal bowel sounds HEART Score - HEART Score Age: < 45 Risk factors: > 3 risk factors or hx of atherosclerotic disease Troponin: Troponin T 0.042 ng/mL (0.00-0.029) H 09/18/19 23:45 Troponin: 1-3x normal limit - Critical Actions Critical Actions: >7 pts:50-65% risk of adverse cardiac event. Early invasive measures Results - Labs CBC & Chem 7: 09/18/19 16:18 09/19/19 14:35 Labs: Laboratory Last Values WBC 7.7 K/mm3 (4.5-11.0) 09/18/19 16:18 RBC 5.58 M/mm3 (3.65-5.03) H 09/18/19 16:18 Hgb 15.6 gm/dl (11.8-15.2) H 09/18/19 16:18 Hct 47.9 % (35.5-45.6) H 09/18/19 16:18 MCV 86 fl (84-94) 09/18/19 16:18 MCH 28 pg (28-32) 09/18/19 16:18 MCHC 33 % (32-34) 09/18/19 16:18 RDW 17.1 % (13.2-15.2) H 09/18/19 16:18 Plt Count 185 K/mm3 (140-440) 09/18/19 16:18 Lymph % (Auto) 11.9 % (13.4-35.0) L 09/18/19 16:18 Mcclain % (Auto) 9.7 % (0.0-7.3) H 09/18/19 16:18 Eos % (Auto) 5.1 % (0.0-4.3) H 09/18/19 16:18 Baso % (Auto) 1.3 % (0.0-1.8) 09/18/19 16:18 Lymph # 0.9 K/mm3 (1.2-5.4) L 09/18/19 16:18 Mcclain # 0.7 K/mm3 (0.0-0.8) 09/18/19 16:18 Eos # 0.4 K/mm3 (0.0-0.4) 09/18/19 16:18 Baso # 0.1 K/mm3 (0.0-0.1) 09/18/19 16:18 Seg Neutrophils % 72.0 % (40.0-70.0) H 09/18/19 16:18 Seg Neutrophils # 5.5 K/mm3 (1.8-7.7) 09/18/19 16:18 PT 13.4 Sec. (12.2-14.9) 09/18/19 16:18 INR 1.01 (0.87-1.13) 09/18/19 16:18 APTT 28.8 Sec. (24.2-36.6) 09/18/19 16:18 Sodium 140 mmol/L (137-145) 09/18/19 18:06 Potassium 4.3 mmol/L (3.6-5.0) 09/18/19 18:06 Chloride 102.7 mmol/L (98-107) 09/18/19 18:06 Carbon Dioxide 22 mmol/L (22-30) 09/18/19 18:06 Anion Gap 20 mmol/L 09/18/19 18:06 BUN 38 mg/dL (9-20) H 09/18/19 18:06 Creatinine 3.0 mg/dL (0.8-1.5) H 09/18/19 18:06 Estimated GFR 29 ml/min 09/18/19 18:06 BUN/Creatinine Ratio 13 % 09/18/19 18:06 Glucose 105 mg/dL (75-100) H 09/18/19 18:06 Hemoglobin A1c 5.0 % (4-6) 09/19/19 00:00 Calcium 8.5 mg/dL (8.4-10.2) 09/18/19 18:06 Magnesium 2.00 mg/dL (1.7-2.3) 09/18/19 18:06 Troponin T 0.042 ng/mL (0.00-0.029) H 09/18/19 23:45 NT-Pro-B Natriuret Pep 76716 pg/mL (0-450) H 09/18/19 18:06 Triglycerides TNR 09/18/19 16:18 Cholesterol TNR 09/18/19 16:18 LDL Cholesterol Direct TNR 09/18/19 16:18 HDL Cholesterol TNR 09/18/19 16:18 Cholesterol/HDL Ratio TNR 09/18/19 16:18 Muñoz/IV: Voiding Method Urinal IV Catheter Type [Right INT / Saline Lock Antecubital] Active Medications - Current Medications Current Medications: Generic Name Dose Route Start Last Admin Trade Name Freq PRN Reason Stop Dose Admin Acetaminophen 650 mg 09/19/19 00:07 09/19/19 02:23 Tylenol PO 650 mg Q4H PRN Administration Pain MILD(1-3)/Fever >100.5/BAHENA Allopurinol 50 mg 09/19/19 10:00 Zyloprim PO QDAY [facility] Atorvastatin Calcium 20 mg 09/19/19 22:00 Lipitor PO QHS [facility] Bumetanide 1 mg 09/19/19 18:00 Bumex IV BID@0600,1800 [facility] Carvedilol 25 mg 09/19/19 01:00 09/19/19 01:13 Coreg PO Not Given BID [facility] Clonidine HCl 0.2 mg 09/19/19 01:00 09/19/19 01:12 Catapres PO Not Given Q12HR [facility] Famotidine 10 mg 09/19/19 10:00 Pepcid PO BID [facility] Hydralazine HCl 100 mg 09/19/19 08:00 Apresoline PO TID [facility] Nicardipine HCl 50 mg/ Sodium 250 mls @ 25 mls/hr 09/19/19 09:00 Chloride IV TITR AYESHA Protocol 5 MG/HR Nifedipine 60 mg 09/19/19 10:00 Procardia Xl PO DAILY [facility] Ondansetron HCl 4 mg 09/19/19 00:07 Zofran IV Q8H PRN Nausea And Vomiting Potassium Chloride 20 meq 09/19/19 01:00 09/19/19 01:13 K-Dur PO Not Given BID [facility] Sodium Chloride 10 ml 09/19/19 01:00 09/19/19 02:24 Sodium Chloride Flush Syringe 10 Ml IV 10 ml BID [facility] Administration Sodium Chloride 10 ml 09/19/19 00:07 Sodium Chloride Flush Syringe 10 Ml IV PRN PRN LINE FLUSH Valsartan 160 mg 09/19/19 10:00 Diovan PO BID [facility]
[2019-09-19] MEDS: NIFEdipine XL 60 MG TAB PO SCH ×2 (09:18→10:35)
[2019-09-19] MEDS ORDERED: carvediloL 25 MG TAB ONE (09:24)
[2019-09-19] MEDS ORDERED: VALSARTAN 160MG TAB PO SCH (10:00)
[2019-09-19] MEDS ORDERED: FAMOTIDINE 20 MG TAB PO SCH (10:00)
[2019-09-19] MEDS: allopurinoL 100 MG TAB PO SCH (10:30)
[2019-09-19] MEDS ORDERED: FAMOTIDINE 20 MG TAB ONE (10:37)
[2019-09-19] MEDS ORDERED: VALSARTAN 160MG TAB ONE (10:38)
[2019-09-19] MEDS ORDERED: cloNIDine 0.2 MG TAB ONE (10:38)
[2019-09-19] MEDS ORDERED: POTASSIUM CHLORIDE ER 20 MEQ TAB PO ONE (10:38)
--- NOTE | 2019-09-19 10:40 | Event Note ---
Date: 09/19/19 34 y/o male with known chronic renal disease and hypertension admitted with hypertensive urgency. patient was started on nitro drip and not given any oral meds overnight. This AM I asked that the lasix be changed to bumex IV and stopped the IV nitro be stopped and I have ordered Cardene. [facility] has ordered that all oral meds be given as well. If patient does not require cardene drip after oral medications then can be transitioned to floor. Spoke with [facility] about this this morning. Will continue to follow.
[2019-09-19] MEDS: FAMOTIDINE 10 MG TAB PO SCH ×2 (11:08→21:15)
--- NOTE | 2019-09-19 13:26 | Consultation ---
History of Present Illness - Reason for Consult Consult date: 09/19/19 - History of Present Illness patient with h/o CHF , HTN and CKD was admitted yesterday for worsening SOB and swelling, he was found to have HTN emergency and was started on Nicardipine drip, he was also found to have worsening kidney function and renal consult was requested Past History Past Medical History: other (CKD< HTN, CHF) Medications and Allergies Allergies Allergy/AdvReac Type Severity Reaction Status Date / Time AYLIN Inhibitors Allergy Unknown Verified 11/16/18 20:37 aspirin Allergy Bleeding Verified 11/12/18 03:21 Home Medications Medication Instructions Recorded Confirmed Last Taken Type Bumetanide [Bumetanide 2 mg tab] 2 mg PO BID 11/16/18 11/16/18 Unknown History allopurinoL [Zyloprim] 0.5 tab PO QDAY 11/16/18 11/16/18 Unknown History AtorvaSTATin [Lipitor] 20 mg PO QHS #30 tablet 11/20/18 Unknown Rx NIFEdipine [Nifedipine ER] 60 mg PO DAILY #30 tab.er.24 11/20/18 Unknown Rx carvediloL [Coreg] 25 mg PO BID #60 tablet 11/20/18 Unknown Rx cloNIDine [Catapres] 0.2 mg PO Q12HR #60 tablet 11/20/18 Unknown Rx hydrALAZINE [Apresoline TAB] 100 mg PO TID #90 tab 11/20/18 Unknown Rx Active Meds: Active Medications Acetaminophen (Tylenol) 650 mg PO Q4H PRN PRN Reason: Pain MILD(1-3)/Fever >100.5/BAHENA Last Admin: 09/19/19 09:44 Dose: 650 mg Documented by: Allopurinol (Zyloprim) 50 mg PO QDAY [facility] Atorvastatin Calcium (Lipitor) 20 mg PO QHS [facility] Bumetanide (Bumex) 1 mg IV BID@0600,1800 [facility] Carvedilol (Coreg) 25 mg PO BID [facility] Last Admin: 09/19/19 10:30 Dose: 25 mg Documented by: Clonidine HCl (Catapres) 0.2 mg PO Q12HR [facility] Last Admin: 09/19/19 10:06 Dose: 0.2 mg Documented by: Famotidine (Pepcid) 10 mg PO BID [facility] Last Admin: 09/19/19 11:08 Dose: 10 mg Documented by: Hydralazine HCl (Apresoline) 100 mg PO TID [facility] Last Admin: 09/19/19 08:05 Dose: 100 mg Documented by: Nicardipine HCl 50 mg/ Sodium (Chloride) 250 mls @ 25 mls/hr IV TITR [facility]; Protocol Nifedipine (Procardia Xl) 60 mg PO DAILY [facility] Last Admin: 09/19/19 10:35 Dose: 60 mg Documented by: Ondansetron HCl (Zofran) 4 mg IV Q8H PRN PRN Reason: Nausea And Vomiting Potassium Chloride (K-Dur) 20 meq PO BID [facility] Last Admin: 09/19/19 10:08 Dose: 20 meq Documented by: Sodium Chloride (Sodium Chloride Flush Syringe 10 Ml) 10 ml IV BID [facility] Last Admin: 09/19/19 10:00 Dose: 10 ml Documented by: Sodium Chloride (Sodium Chloride Flush Syringe 10 Ml) 10 ml IV PRN PRN PRN Reason: LINE FLUSH Review of Systems All systems: negative (SOB, swelling) Exam - Vital Signs Vital signs: Vital Signs Temp Pulse Resp BP Pulse Ox 98.7 F 90 24 211/133 94 09/18/19 15:38 09/18/19 15:38 09/18/19 15:38 09/18/19 15:38 09/18/19 15:38 - General Appearance General appearance: well-developed, well-nourished EENT: ATNC, PERRL Neck: Present: neck supple Respiratory: Decreased Breath Sounds Heart: regular, S1S2 Gastrointestinal: Absent: tenderness, distended Integumentary: no rash, warm and dry, cool/clammy Neurologic: no focal deficit, no asterixis, alert and oriented x3 Musculoskeletal: Present: other (edema in BLE) Psychiatric: mood/affect appropriate, cooperative Results - Lab Results 09/18/19 16:18 09/19/19 14:35 Most recent lab results Calcium 8.5 mg/dL (8.4-10.2) 09/18/19 18:06 Magnesium 2.00 mg/dL (1.7-2.3) 09/18/19 18:06 Assessment and Plan renal failure, possible CKD secondary to HTN and Amyloidosis vs. JL secondary to cardiorenal syndrome and Hypertensive emergency diastolic heart failue HTN hypoxic respiratory failure secondary cardiogenic pulm edema - urine lytes ordered - will d/c valsartan for now - cont diuretcis for volume overload - renally dose meds - strict I&O - daily weight Bo Rice MD [phone]
--- NOTE | 2019-09-19 13:50 | Consultation ---
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 He reports that he sees ca rdiology at [place]. He presented with complaints of generalized pain and progressively worsening SOB, SANTIAGO and BLE swelling for the past several weeks. Pt denies any isolated chest pain, palpitations, n/v, diaphoresis, dizziness or syncope. He reports compliance with his home medication regimen. BPs noted to be significantly elevated following arrival and pt has been initiated on nitro gtt. Echo done 02/2018 showed EF 65%, LV frank severely thickened, abnormal diastolic function, sinus of valsalva is mildly dilated (44 mm), known aortic dissection, intimal dissection flap seen in descending thoracic aorta. Compared to prior echo images from 01/31/17, LVEF is improved.Dissection flap seen in descending thoracic aorta and similar to previous echo. If clinically indicated, could consider cardiac MRI for further evaluation of LV wall thickness. Differential: HTN heart disease, HCM, or infiltrative cardiac disease (amyloidosis). Lexiscan MPI stress test done 10/2018 was negative for ischemia, EF 40%. Past History Past Medical History: other (as per HPI) Medications and Allergies Allergies Allergy/AdvReac Type Severity Reaction Status Date / Time AYLIN Inhibitors Allergy Unknown Verified 11/16/18 20:37 aspirin Allergy Bleeding Verified 11/12/18 03:21 Home Medications Medication Instructions Recorded Confirmed Last Taken Type Bumetanide [Bumetanide 2 mg tab] 2 mg PO BID 11/16/18 11/16/18 Unknown History allopurinoL [Zyloprim] 0.5 tab PO QDAY 11/16/18 11/16/18 Unknown History AtorvaSTATin [Lipitor] 20 mg PO QHS #30 tablet 11/20/18 Unknown Rx NIFEdipine [Nifedipine ER] 60 mg PO DAILY #30 tab.er.24 11/20/18 Unknown Rx carvediloL [Coreg] 25 mg PO BID #60 tablet 11/20/18 Unknown Rx cloNIDine [Catapres] 0.2 mg PO Q12HR #60 tablet 11/20/18 Unknown Rx hydrALAZINE [Apresoline TAB] 100 mg PO TID #90 tab 11/20/18 Unknown Rx Active Meds: Active Medications Acetaminophen (Tylenol) 650 mg PO Q4H PRN PRN Reason: Pain MILD(1-3)/Fever >100.5/BAHENA Last Admin: 09/19/19 09:44 Dose: 650 mg Documented by: Allopurinol (Zyloprim) 50 mg PO QDAY [facility] Atorvastatin Calcium (Lipitor) 20 mg PO QHS [facility] Bumetanide (Bumex) 1 mg IV BID@0600,1800 [facility] Carvedilol (Coreg) 25 mg PO BID [facility] Last Admin: 09/19/19 10:30 Dose: 25 mg Documented by: Clonidine HCl (Catapres) 0.2 mg PO Q12HR [facility] Last Admin: 09/19/19 10:06 Dose: 0.2 mg Documented by: Famotidine (Pepcid) 10 mg PO BID [facility] Last Admin: 09/19/19 11:08 Dose: 10 mg Documented by: Hydralazine HCl (Apresoline) 100 mg PO TID [facility] Last Admin: 09/19/19 08:05 Dose: 100 mg Documented by: Nicardipine HCl 50 mg/ Sodium (Chloride) 250 mls @ 25 mls/hr IV TITR [facility]; Protocol Nifedipine (Procardia Xl) 60 mg PO DAILY [facility] Last Admin: 09/19/19 10:35 Dose: 60 mg Documented by: Ondansetron HCl (Zofran) 4 mg IV Q8H PRN PRN Reason: Nausea And Vomiting Potassium Chloride (K-Dur) 20 meq PO BID [facility] Last Admin: 09/19/19 10:08 Dose: 20 meq Documented by: Sodium Chloride (Sodium Chloride Flush Syringe 10 Ml) 10 ml IV BID [facility] Last Admin: 09/19/19 10:00 Dose: 10 ml Documented by: Sodium Chloride (Sodium Chloride Flush Syringe 10 Ml) 10 ml IV PRN PRN PRN Reason: LINE FLUSH Review of Systems Constitutional: no weight loss, no weight gain, no fever, no chills, no sweats Eyes: right: irritation Ears, nose, mouth and throat: no ear pain, no nose pain, no sinus pressure, no sinus pain Cardiovascular: edema, shortness of breath, dyspnea on exertion, paroxysmal nocturnal dyspnea, high blood pressure, leg edema, no chest pain, no orthopnea, no palpitations, no rapid/irregular heart beat, no syncope, no lightheadedness Respiratory: shortness of breath, dyspnea on exertion, no cough, no congestion, no wheezing, no pain on inspiration Gastrointestinal: no abdominal pain, no nausea, no vomiting, no constipation, no change in bowel habits Genitourinary Male: no dysuria, no hematuria, no flank pain, no discharge, no urinary frequency, no urinary hesitancy Musculoskeletal: no neck stiffness, no neck pain, no shooting arm pain, no arm numbness/tingling, no low back pain, no shooting leg pain Integumentary: no rash, no pruritis, no redness, no sores, no wounds Neurological: no head injury, no paralysis, no weakness, no parathesias, no numbness, no tingling, no seizures, no syncope Psychiatric: no anxiety Endocrine: no cold intolerance, no heat intolerance Hematologic/Lymphatic: no easy bruising Allergic/Immunologic: no urticaria Physical Examination Vital Signs Temp Pulse Resp BP Pulse Ox 98.7 F 90 24 211/133 94 09/18/19 15:38 09/18/19 15:38 09/18/19 15:38 09/18/19 15:38 09/18/19 15:38 General appearance: no acute distress HEENT: Positive: PERRL, Normocephaly, Mucus Membranes Moist Neck: Positive: neck supple, trachea midline Cardiac: Positive: Reg Rate and Rhythm, S1/S2 Lungs: Positive: Decreased Breath Sounds Neuro: Positive: Grossly Intact Abdomen: Negative: Tender Skin: Negative: Rash Musculoskeletal: No Pain Extremities: Absent: edema Results 09/18/19 16:18 09/18/19 18:06 Coagulation 09/18/19 Range/Units 16:18 PT 13.4 (12.2-14.9) Sec. INR 1.01 (0.87-1.13) APTT 28.8 (24.2-36.6) Sec. Lipids 09/18/19 Range/Units 16:18 Triglycerides TNR Cholesterol TNR HDL Cholesterol TNR Cholesterol/HDL Ratio TNR CBC 09/18/19 Range/Units 16:18 WBC 7.7 (4.5-11.0) K/mm3 RBC 5.58 H (3.65-5.03) M/mm3 Hgb 15.6 H (11.8-15.2) gm/dl Hct 47.9 H (35.5-45.6) % Plt Count 185 (140-440) K/mm3 Lymph # 0.9 L (1.2-5.4) K/mm3 Webb # 0.7 (0.0-0.8) K/mm3 Eos # 0.4 (0.0-0.4) K/mm3 Baso # 0.1 (0.0-0.1) K/mm3 Comprehensive Metabolic Panel 09/18/19 09/18/19 Range/Units 16:18 18:06 Sodium TNR 140 Potassium TNR 4.3 Chloride TNR 102.7 Carbon Dioxide TNR 22 BUN TNR 38 H Creatinine TNR 3.0 H Glucose TNR 105 H Calcium TNR 8.5 - Imaging and Cardiology Echo: pending, report reviewed EKG: report reviewed, image reviewed EKG interpretations - Telemetry EKG Rhythm: Sinus Rhythm - EKG Sinus rhythms and dysrhythmias: sinus rhythm Ventricular dysrhythmias: ventricular premature com Chamber hypertrophy or enlargement: left ventricular hypertro Assessment and Plan Agree with present cardiac management, including BP optimization (currently receiving clonidine, coreg, hydralazine) and diuresis with IV bumex. Monitor renal indices - nephrology is following. Wean nitro gtt off as tolerated. Await f/u echo. According to prior echo findings - HTN heart disease, HCM, or infiltrative cardiac disease (amyloidosis) should be considered. Further recs to follow per hospital course. The patient has been seen in conjunction with Dr. Winnie Isidro who agrees with the assessment and plan of care. - Patient Problems (1) Acute heart failure with preserved ejection fraction Current Visit: Yes Status: Acute (2) Hypertensive emergency Current Visit: Yes Status: Acute (3) Hypertensive heart disease Current Visit: Yes Status: Chronic (4) Acute on chronic kidney failure Current Visit: Yes Status: Acute (5) Elevated troponin Current Visit: Yes Status: Acute (6) S/P aortic dissection repair Current Visit: Yes Status: Chronic (7) Gout Current Visit: Yes Status: Chronic
[2019-09-19 15:31] LABS: Albumin 2.1 g/dL (3.9-5)
[2019-09-19] MEDS: BUMETANIDE 1 MG/4 ML INJ IV SCH (17:55)
[2019-09-19] MEDS: MORPHINE 2 MG/1 ML INJ IV PRN (21:32)
[2019-09-20] MEDS: BUMETANIDE 1 MG/4 ML INJ IV SCH ×2 (05:01→17:51)
[2019-09-20 05:44] LABS: Basophils # (Auto) 0.1 K/mm3 (0.0-0.1); Eosinophils # (Auto) 0.5 K/mm3 (0.0-0.4); Eosinophils % (Auto) 6.6 % (0.0-4.3); Hematocrit 42.7 % (35.5-45.6); Hemoglobin 13.8 gm/dl (11.8-15.2); Lymphocytes # (Auto) 1.3 K/mm3 (1.2-5.4); Lymphocytes % (Auto) 19.6 % (13.4-35.0); Mean Corpuscular HGB Conc 32 % (32-34); Mean Corpuscular Volume 86 fl (84-94); Monocytes # (Auto) 0.9 K/mm3 (0.0-0.8); Monocytes % (Auto) 13.2 % (0.0-7.3); Platelet Count 196 K/mm3 (140-440); Red Blood Count 4.97 M/mm3 (3.65-5.03); Red Cell Distribution Width 17.2 % (13.2-15.2)
[2019-09-20 06:23] LABS: Albumin 2.5 g/dL (3.9-5); Calcium 8.2 mg/dL (8.4-10.2)
--- NOTE | 2019-09-20 08:16 | Progress Note ---
Assessment and Plan Assessment and plan: --Hypertensive emergency; on Cardene drip Patient's blood pressures reasonable level Continue current antihypertensives Monitor off Cardene drip --Acute on chronic systolic congestive heart failure EF 40% [2019] Follow echocardiogram for LV function ejection fraction Anti-failure medications, input output monitoring Low-sodium diet, fluid restriction, cardiology following --Elevated troponin/possible NSTEMI Probably nonspecific, patient has multiple risk factors, cardiology consulted --Acute on chronic kidney disease 3 ; Vasomotor nephropathy, worsening renal function Possible cardiorenal syndrome, nephrology following Monitor renal function avoid nephrotoxins --History of gout; continue allopurinol --Dyslipidemia;On statin --Severe malnutrition/hypoalbuminemia; Nutrition supplements and supportive care --Morbid obesity; BMI 44 Patient needs weight reduction when medically stable Partly due to fluid overload --DVT prophylaxis; Lovenox renal dose Closely monitor and adjust management Consults and recommendations noted and appreciated If patient stays stable next 1 to 2 hours May be transferred out of ICU to telemetry Plan of care reviewed with the patient and his nurse Critical care time 35 minutes History Interval history: Patient seen and examined at the bedside in ICU this morning Patient's chart, medications overnight events reviewed Patient feels slightly better, complains of generalized body pains Shortness of breath significantly improved Off Cardene drip blood pressure 123/56 Alert awake oriented/no distress Vital signs noted Hospitalist Physical - Constitutional Vitals: Temp Pulse Resp BP Pulse Ox 98.5 F 70 20 123/56 96 09/20/19 03:24 09/20/19 06:00 09/20/19 06:00 09/20/19 06:00 09/20/19 06:00 General appearance: Present: mild distress, well-nourished, obese (Morbid o besity) - EENT Eyes: Present: PERRL, EOM intact - Neck Neck: Present: supple, normal ROM - Respiratory Respiratory effort: normal Respiratory: bilateral: diminished, rales, negative: rhonchi, wheezing - Cardiovascular Rhythm: regular Heart Sounds: Present: S1 & S2 - Extremities Extremities: no ischemia Extremity abnormal: edema (Edema significantly improved) - Abdominal General gastrointestinal: soft, non-tender, non-distended, normal bowel sounds - Integumentary Integumentary: Present: clear, warm - Psychiatric Psychiatric: appropriate mood/affect, cooperative - Neurologic Neurologic: CNII-XII intact, moves all extremities HEART Score - HEART Score Age: < 45 Risk factors: > 3 risk factors or hx of atherosclerotic disease Troponin: Troponin T 0.042 ng/mL (0.00-0.029) H 09/18/19 23:45 Troponin: 1-3x normal limit - Critical Actions Critical Actions: >7 pts:50-65% risk of adverse cardiac event. Early invasive measures Results - Labs CBC & Chem 7: 09/20/19 04:51 09/20/19 04:51 Labs: Laboratory Last Values WBC 6.8 K/mm3 (4.5-11.0) 09/20/19 04:51 RBC 4.97 M/mm3 (3.65-5.03) 09/20/19 04:51 Hgb 13.8 gm/dl (11.8-15.2) 09/20/19 04:51 Hct 42.7 % (35.5-45.6) 09/20/19 04:51 MCV 86 fl (84-94) 09/20/19 04:51 MCH 28 pg (28-32) 09/20/19 04:51 MCHC 32 % (32-34) 09/20/19 04:51 RDW 17.2 % (13.2-15.2) H 09/20/19 04:51 Plt Count 196 K/mm3 (140-440) 09/20/19 04:51 Lymph % (Auto) 19.6 % (13.4-35.0) 09/20/19 04:51 [place] % (Auto) 13.2 % (0.0-7.3) H 09/20/19 04:51 Eos % (Auto) 6.6 % (0.0-4.3) H 09/20/19 04:51 Baso % (Auto) 1.0 % (0.0-1.8) 09/20/19 04:51 Lymph # 1.3 K/mm3 (1.2-5.4) 09/20/19 04:51 [place] # 0.9 K/mm3 (0.0-0.8) H 09/20/19 04:51 Eos # 0.5 K/mm3 (0.0-0.4) H 09/20/19 04:51 Baso # 0.1 K/mm3 (0.0-0.1) 09/20/19 04:51 Seg Neutrophils % 59.6 % (40.0-70.0) 09/20/19 04:51 Seg Neutrophils # 4.1 K/mm3 (1.8-7.7) 09/20/19 04:51 PT 13.4 Sec. (12.2-14.9) 09/18/19 16:18 INR 1.01 (0.87-1.13) 09/18/19 16:18 APTT 28.8 Sec. (24.2-36.6) 09/18/19 16:18 Sodium 138 mmol/L (137-145) 09/20/19 04:51 Potassium 4.6 mmol/L (3.6-5.0) 09/20/19 04:51 Chloride 100.6 mmol/L (98-107) 09/20/19 04:51 Carbon Dioxide 26 mmol/L (22-30) D 09/20/19 04:51 Anion Gap 16 mmol/L 09/20/19 04:51 BUN 44 mg/dL (9-20) H 09/20/19 04:51 Creatinine 3.6 mg/dL (0.8-1.5) H 09/20/19 04:51 Estimated GFR 23 ml/min 09/20/19 04:51 BUN/Creatinine Ratio 12 % 09/20/19 04:51 Glucose 106 mg/dL (75-100) H 09/20/19 04:51 Hemoglobin A1c 5.0 % (4-6) 09/19/19 00:00 Calcium 8.2 mg/dL (8.4-10.2) L 09/20/19 04:51 Magnesium 2.10 mg/dL (1.7-2.3) 09/19/19 14:35 Total Bilirubin 0.40 mg/dL (0.1-1.2) 09/20/19 04:51 AST 17 units/L (5-40) 09/20/19 04:51 ALT 6 units/L (7-56) L 09/20/19 04:51 Alkaline Phosphatase 96 units/L (35-129) 09/20/19 04:51 Troponin T 0.042 ng/mL (0.00-0.029) H 09/18/19 23:45 NT-Pro-B Natriuret Pep 55654 pg/mL (0-450) H 09/18/19 18:06 Total Protein 6.6 g/dL (6.3-8.2) 09/20/19 04:51 Albumin 2.5 g/dL (3.9-5) L 09/20/19 04:51 Albumin/Globulin Ratio 0.6 % 09/20/19 04:51 Triglycerides TNR 09/18/19 16:18 Cholesterol TNR 09/18/19 16:18 LDL Cholesterol Direct TNR 09/18/19 16:18 HDL Cholesterol TNR 09/18/19 16:18 Cholesterol/HDL Ratio TNR 09/18/19 16:18 Muñoz/IV: Voiding Method Urinal IV Catheter Type [Right INT / Saline Lock Antecubital] Active Medications - Current Medications Current Medications: Generic Name Dose Route Start Last Admin Trade Name Freq PRN Reason Stop Dose Admin Acetaminophen 650 mg 09/19/19 00:07 09/19/19 17:54 Tylenol PO 650 mg Q4H PRN Administration Pain MILD(1-3)/Fever >100.5/BAHENA Allopurinol 50 mg 09/19/19 10:00 09/19/19 10:30 Zyloprim PO 50 mg QDAY AYESHA Administration Atorvastatin Calcium 20 mg 09/19/19 22:00 09/19/19 21:16 Lipitor PO 20 mg QHS AYESHA Administration Bumetanide 1 mg 09/19/19 18:00 09/20/19 05:01 Bumex IV 1 mg BID@0600,1800 AYESHA Administration Carvedilol 25 mg 09/19/19 01:00 09/19/19 21:15 Coreg PO 25 mg BID AYESHA Administration Clonidine HCl 0.2 mg 09/19/19 01:00 09/19/19 21:14 Catapres PO 0.2 mg Q12HR AYESHA Administration Famotidine 10 mg 09/19/19 10:00 09/19/19 21:15 Pepcid PO 10 mg BID AYESHA Administration Hydralazine HCl 100 mg 09/19/19 08:00 09/19/19 19:25 Apresoline PO 100 mg TID AYESHA Administration Nicardipine HCl 50 mg/ Sodium 250 mls @ 25 mls/hr 09/19/19 09:00 09/19/19 23:15 Chloride IV 0 mg/hr TITR AYESHA 0 mls/hr Titration Protocol 5 MG/HR Morphine Sulfate 2 mg 09/19/19 21:24 09/19/19 21:32 Morphine IV 2 mg Q4H PRN Administration Pain, Moderate (4-6) Nifedipine 60 mg 09/19/19 10:00 09/19/19 10:35 Procardia Xl PO 60 mg DAILY AYESHA Administration Ondansetron HCl 4 mg 09/19/19 00:07 Zofran IV Q8H PRN Nausea And Vomiting Potassium Chloride 20 meq 09/19/19 01:00 09/19/19 21:16 K-Dur PO 20 meq BID AYESHA Administration Sodium Chloride 10 ml 09/19/19 01:00 09/19/19 21:17 Sodium Chloride Flush Syringe 10 Ml IV 10 ml BID AYESHA Administration Sodium Chloride 10 ml 09/19/19 00:07 Sodium Chloride Flush Syringe 10 Ml IV PRN PRN LINE FLUSH
--- NOTE | 2019-09-20 09:11 | Progress Note ---
Assessment and Plan Assessment: Renal failure, possible CKD secondary to HTN and Amyloidosis vs. JL secondary to cardiorenal syndrome and Hypertensive emergency Diastolic heart failure Hypertension Hypoxic respiratory failure secondary cardiogenic pulmonary edema Plan: -Renal labs reviewed. Serum creatinine 3.6 today, yesterday's was 3.3, UOP 950 ml -In June 2018 patient's serum creatinine ranged from 2.8-3.3, likely has CKD due ot Hypertensive Neprhosclerosis -Valsartan was discontinued due to advanced renal failure -Off Nicardipine drip -On Clonidine, Carvedilol, Nifedipine and Hydralazine -On Bumex 1 mg IV BID, decrease to 0.5 mg IV BID due to worsening renal failure -Obtain urine lytes and protein labs -Renally dose medications -Strict I&O monitoring -Obtain daily weights -Monitor renal function closely Subjective Date of service: 09/20/19 Principal diagnosis: Volume overload Interval history: Patient seen lying in bed. States swelling is better since yesterday. Objective - Vital Signs Vital signs: Vital Signs - 12hr 09/19/19 09/19/19 09/19/19 21:14 21:15 21:20 Temperature Pulse Rate 92 H 92 H 87 Pulse Rate [ From Monitor] Respiratory 21 Rate Blood Pressure 163/79 163/79 164/84 O2 Sat by Pulse 91 Oximetry 09/19/19 09/19/19 09/19/19 21:30 21:40 21:50 Temperature Pulse Rate 83 87 96 H Pulse Rate [ From Monitor] Respiratory 21 17 23 Rate Blood Pressure 164/84 157/79 161/75 O2 Sat by Pulse 90 92 89 Oximetry 09/19/19 09/19/19 09/19/19 22:00 22:10 22:20 Temperature Pulse Rate 96 H 88 88 Pulse Rate [ From Monitor] Respiratory 11 L 24 20 Rate Blood Pressure 161/75 166/85 166/85 O2 Sat by Pulse 91 90 87 Oximetry 09/19/19 09/19/19 09/19/19 22:30 22:40 22:50 Temperature Pulse Rate 82 86 81 Pulse Rate [ From Monitor] Respiratory 19 19 18 Rate Blood Pressure 166/85 157/70 158/72 O2 Sat by Pulse 86 82 L 89 Oximetry 09/19/19 09/19/19 09/19/19 22:52 23:00 23:01 Temperature Pulse Rate 81 80 80 Pulse Rate [ From Monitor] Respiratory 19 19 19 Rate Blood Pressure 158/72 158/72 149/68 O2 Sat by Pulse 89 88 87 Oximetry 09/19/19 09/19/19 09/19/19 23:10 23:12 23:13 Temperature 98.7 F Pulse Rate 82 78 Pulse Rate [ From Monitor] Respiratory 22 18 Rate Blood Pressure 149/68 149/68 O2 Sat by Pulse 97 96 Oximetry 09/19/19 09/19/19 09/19/19 23:20 23:28 23:30 Temperature Pulse Rate 79 80 80 Pulse Rate [ From Monitor] Respiratory 16 18 21 Rate Blood Pressure 132/66 132/66 132/66 O2 Sat by Pulse 96 96 96 Oximetry 09/19/19 09/19/19 09/20/19 23:40 23:50 00:00 Temperature Pulse Rate 79 77 75 Pulse Rate [ 75 From Monitor] Respiratory 19 17 15 Rate Blood Pressure 133/70 140/66 133/70 O2 Sat by Pulse 97 96 96 Oximetry 09/20/19 09/20/19 09/20/19 00:10 00:20 00:30 Temperature Pulse Rate 72 76 74 Pulse Rate [ From Monitor] Respiratory 16 22 19 Rate Blood Pressure 124/64 131/62 131/62 O2 Sat by Pulse 97 96 96 Oximetry 09/20/19 09/20/19 09/20/19 00:40 00:50 01:00 Temperature Pulse Rate 76 73 73 Pulse Rate [ From Monitor] Respiratory 20 17 14 Rate Blood Pressure 131/62 131/57 137/75 O2 Sat by Pulse 97 96 93 Oximetry 09/20/19 09/20/19 09/20/19 01:10 01:20 01:30 Temperature Pulse Rate 72 73 73 Pulse Rate [ From Monitor] Respiratory 15 14 17 Rate Blood Pressure 131/57 135/66 135/66 O2 Sat by Pulse 95 95 95 Oximetry 09/20/19 09/20/19 09/20/19 01:40 01:50 02:00 Temperature Pulse Rate 72 72 74 Pulse Rate [ From Monitor] Respiratory 16 15 16 Rate Blood Pressure 137/75 144/70 144/70 O2 Sat by Pulse 95 95 95 Oximetry 09/20/19 09/20/19 09/20/19 02:10 02:20 02:30 Temperature Pulse Rate 72 69 77 Pulse Rate [ From Monitor] Respiratory 16 15 19 Rate Blood Pressure 144/70 128/61 O2 Sat by Pulse 96 95 98 Oximetry 09/20/19 09/20/19 09/20/19 02:40 02:50 03:00 Temperature Pulse Rate 69 75 75 Pulse Rate [ From Monitor] Respiratory 17 20 14 Rate Blood Pressure 128/61 145/68 145/68 O2 Sat by Pulse 95 96 95 Oximetry 09/20/19 09/20/19 09/20/19 03:10 03:20 03:24 Temperature 98.5 F Pulse Rate 75 75 Pulse Rate [ From Monitor] Respiratory 17 17 Rate Blood Pressure 143/70 144/78 O2 Sat by Pulse 94 94 Oximetry 09/20/19 09/20/19 09/20/19 03:30 03:40 03:50 Temperature Pulse Rate 72 72 73 Pulse Rate [ From Monitor] Respiratory 16 17 17 Rate Blood Pressure 144/78 145/74 146/78 O2 Sat by Pulse 94 95 96 Oximetry 09/20/19 09/20/19 09/20/19 04:00 04:10 04:20 Temperature Pulse Rate 74 81 75 Pulse Rate [ 73 From Monitor] Respiratory 17 19 21 Rate Blood Pressure 146/78 145/83 130/55 O2 Sat by Pulse 98 98 95 Oximetry 09/20/19 09/20/19 09/20/19 04:30 04:40 04:50 Temperature Pulse Rate 74 72 71 Pulse Rate [ From Monitor] Respiratory 18 14 17 Rate Blood Pressure 130/55 125/65 130/55 O2 Sat by Pulse 95 94 95 Oximetry 09/20/19 09/20/19 09/20/19 05:00 05:10 05:20 Temperature Pulse Rate 72 73 75 Pulse Rate [ From Monitor] Respiratory 18 17 16 Rate Blood Pressure 130/55 139/61 137/63 O2 Sat by Pulse 96 95 97 Oximetry 09/20/19 09/20/19 09/20/19 05:30 05:40 05:50 Temperature Pulse Rate 72 71 70 Pulse Rate [ From Monitor] Respiratory 19 17 17 Rate Blood Pressure 137/63 123/56 123/56 O2 Sat by Pulse 96 95 95 Oximetry 09/20/19 09/20/19 06:00 08:00 Temperature 97.6 F Pulse Rate 70 Pulse Rate [ From Monitor] Respiratory 20 Rate Blood Pressure 123/56 O2 Sat by Pulse 96 Oximetry - General Appearance General appearance: well-developed, appears stated age, fatigue EENT: ATNC, PERRL, hearing intact, vision intact Neck: no JVD, supple Respiratory: Present: Decreased Breath Sounds Cardiology: regular, S1S2 Gastrointestinal: normoactive bowel sounds Integumentary: warm and dry Neurologic: alert and oriented x3 Musculoskeletal: joint swelling, other (2+ edema to BLE) Psychiatric: cooperative - Lab 09/20/19 04:51 09/20/19 04:51 Most recent lab results Calcium 8.2 mg/dL (8.4-10.2) L 09/20/19 04:51 Magnesium 2.10 mg/dL (1.7-2.3) 09/19/19 14:35 Medications & Allergies - Medications Allergies/Adverse Reactions: Allergies AYLIN Inhibitors Allergy (Verified 11/16/18 20:37) Unknown aspirin Allergy (Verified 11/12/18 03:21) Bleeding Home Medications: Home Medications Medication Instructions Recorded Confirmed Last Taken Type Bumetanide [Bumetanide 2 mg tab] 2 mg PO BID 11/16/18 09/19/19 Unknown History allopurinoL [Zyloprim] 0.5 tab PO QDAY 11/16/18 09/19/19 Unknown History AtorvaSTATin [Lipitor] 20 mg PO QHS #30 tablet 11/20/18 09/19/19 Unknown Rx NIFEdipine [Nifedipine ER] 60 mg PO DAILY #30 tab.er.24 11/20/18 09/19/19 09/18/19 Rx carvediloL [Coreg] 25 mg PO BID #60 tablet 11/20/18 09/19/19 09/18/19 Rx cloNIDine [Catapres] 0.2 mg PO Q12HR #60 tablet 11/20/18 09/19/19 09/18/19 Rx hydrALAZINE [Apresoline TAB] 100 mg PO TID #90 tab 11/20/18 09/19/19 09/18/19 Rx Active Medications: Generic Name Dose Route Start Last Admin Trade Name Freq PRN Reason Stop Dose Admin Acetaminophen 650 mg 09/19/19 00:07 09/19/19 17:54 Tylenol PO 650 mg Q4H PRN Administration Pain MILD(1-3)/Fever >100.5/BAHENA Allopurinol 50 mg 09/19/19 10:00 09/19/19 10:30 Zyloprim PO 50 mg QDAY AYESHA Administration Atorvastatin Calcium 20 mg 09/19/19 22:00 09/19/19 21:16 Lipitor PO 20 mg QHS AYESHA Administration Bumetanide 1 mg 09/19/19 18:00 09/20/19 05:01 Bumex IV 1 mg BID@0600,1800 AYESHA Administration Carvedilol 25 mg 09/19/19 01:00 09/19/19 21:15 Coreg PO 25 mg BID AYESHA Administration Clonidine HCl 0.2 mg 09/19/19 01:00 09/19/19 21:14 Catapres PO 0.2 mg Q12HR AYESHA Administration Famotidine 10 mg 09/19/19 10:00 09/19/19 21:15 Pepcid PO 10 mg BID AYESHA Administration Hydralazine HCl 100 mg 09/19/19 08:00 09/19/19 19:25 Apresoline PO 100 mg TID AYESHA Administration Nicardipine HCl 50 mg/ Sodium 250 mls @ 25 mls/hr 09/19/19 09:00 09/19/19 23:15 Chloride IV 0 mg/hr TITR AYESHA 0 mls/hr Titration Protocol 5 MG/HR Morphine Sulfate 2 mg 09/19/19 21:24 09/19/19 21:32 Morphine IV 2 mg Q4H PRN Administration Pain, Moderate (4-6) Nifedipine 60 mg 09/19/19 10:00 09/19/19 10:35 Procardia Xl PO 60 mg DAILY AYESHA Administration Ondansetron HCl 4 mg 09/19/19 00:07 Zofran IV Q8H PRN Nausea And Vomiting Potassium Chloride 20 meq 09/19/19 01:00 09/19/19 21:16 K-Dur PO 20 meq BID AYESHA Administration Sodium Chloride 10 ml 09/19/19 01:00 09/19/19 21:17 Sodium Chloride Flush Syringe 10 Ml IV 10 ml BID AYESHA Administration Sodium Chloride 10 ml 09/19/19 00:07 Sodium Chloride Flush Syringe 10 Ml IV PRN PRN LINE FLUSH
[2019-09-20] MEDS: hydrALAZINE 100 MG TAB PO SCH ×3 (09:50→21:18)
[2019-09-20] MEDS: POTASSIUM CHLORIDE ER 20 MEQ TAB PO SCH ×2 (09:50→21:18)
[2019-09-20] MEDS: cloNIDine 0.2 MG TAB PO SCH ×2 (09:50→21:19)
[2019-09-20] MEDS: FAMOTIDINE 10 MG TAB PO SCH ×2 (09:50→21:18)
[2019-09-20] MEDS: allopurinoL 100 MG TAB PO SCH (09:51)
[2019-09-20] MEDS: carvediloL 25 MG TAB PO SCH ×2 (09:51→21:19)
[2019-09-20] MEDS: NIFEdipine XL 60 MG TAB PO SCH (09:51)
--- NOTE | 2019-09-20 10:24 | Progress Note ---
Assessment and Plan 34yo AAM: 1. Hypertensive emergency * vastly improved - now off cardene gtt 2. Severe hypertrophic cardiomyopathy * EF ~30% * ? infiltrative process * mild HFrEF - near euvolemia 3. JL * metabolic acidemia * nephrology on board 4. Severe pulmonary hypertension 5. Malnutrition 6. Minimally elevated Trop in setting of #s 1,2,3 * likely clinically insignificant 7. Obesity 8. h/o thoraco-abdominal aortic dissection * appears stable * s/p repair/sx 03/15 pah ~41 min spent in care/coordination of this pt Clinically improving Will follow along Cont IV diuretic - Patient Problems (1) JL (acute kidney injury) Current Visit: Yes Status: Acute (2) Acute CHF (congestive heart failure) Current Visit: Yes Status: Acute (3) Acute heart failure with preserved ejection fraction Current Visit: Yes Status: Acute (4) Acute on chronic kidney failure Current Visit: Yes Status: Acute (5) Chest pain Current Visit: Yes Status: Acute (6) DVT prophylaxis Current Visit: Yes Status: Acute (7) Elevated troponin Current Visit: Yes Status: Acute (8) Hypertensive emergency Current Visit: Yes Status: Acute (9) Renal insufficiency Current Visit: Yes Status: Acute (10) Hypertensive heart disease Current Visit: Yes Status: Chronic (11) S/P aortic dissection repair Current Visit: Yes Status: Chronic (12) Morbid obesity with BMI of 40.0-44.9, adult Current Visit: No Status: Acute Subjective Date of service: 09/20/19 Principal diagnosis: Volume overload Interval history: feels better today Objective Vital Signs Temp Pulse Pulse Resp BP BP Pulse Ox 09/20/19 09:51 76 146/86 09/20/19 09:50 75 146/86 09/20/19 08:00 97.6 F 09/20/19 06:00 70 20 123/56 96 09/20/19 05:50 70 17 123/56 95 09/20/19 05:40 71 17 123/56 95 09/20/19 05:30 72 19 137/63 96 09/20/19 05:20 75 16 137/63 97 09/20/19 05:10 73 17 139/61 95 09/20/19 05:00 72 18 130/55 96 09/20/19 04:50 71 17 130/55 95 05/23/20 04:40 72 14 125/65 94 05/23/20 04:30 74 18 130/55 95 05/23/20 04:20 75 21 130/55 95 05/23/20 04:10 81 19 145/83 98 05/23/20 04:00 74 73 17 146/78 98 05/23/20 03:50 73 17 146/78 96 05/23/20 03:40 72 17 145/74 95 05/23/20 03:30 72 16 144/78 94 05/23/20 03:24 98.5 F 05/23/20 03:20 75 17 144/78 94 05/23/20 03:10 75 17 143/70 94 05/23/20 03:00 75 14 145/68 95 05/23/20 02:50 75 20 145/68 96 05/23/20 02:40 69 17 128/61 95 05/23/20 02:30 77 19 98 05/23/20 02:20 69 15 128/61 95 05/23/20 02:10 72 16 144/70 96 05/23/20 02:00 74 16 144/70 95 05/23/20 01:50 72 15 144/70 95 05/23/20 01:40 72 16 137/75 95 05/23/20 01:30 73 17 135/66 95 05/23/20 01:20 73 14 135/66 95 05/23/20 01:10 72 15 131/57 95 05/23/20 01:00 73 14 137/75 93 05/23/20 00:50 73 17 131/57 96 05/23/20 00:40 76 20 131/62 97 05/23/20 00:30 74 19 131/62 96 05/23/20 00:20 76 22 131/62 96 05/23/20 00:10 72 16 124/64 97 05/23/20 00:00 75 75 15 133/70 96 05/22/20 23:50 77 17 140/66 96 05/22/20 23:40 79 19 133/70 97 05/22/20 23:30 80 21 132/66 96 05/22/20 23:28 80 18 132/66 96 05/22/20 23:20 79 16 132/66 96 05/22/20 23:13 98.7 F 05/22/20 23:12 78 18 149/68 96 05/22/20 23:10 82 22 149/68 97 20 23:01 80 19 149/68 87 20 23:00 80 19 158/72 88 20 22:52 81 19 158/72 89 20 22:50 81 18 158/72 89 09/18/20 22:40 86 19 157/70 82 L 09/19/19 22:30 82 19 166/85 86 0520 22:20 88 20 166/85 87 0520 22:10 88 24 166/85 90 09/19/19 22:00 96 H 11 L 161/75 91 09/19/19 21:50 96 H 23 161/75 89 09/19/19 21:40 87 17 157/79 92 09/19/19 21:30 83 21 164/84 90 09/19/19 21:20 87 21 164/84 91 05 21:15 92 H 163/79 05 21:14 92 H 163/79 09/19/19 21:10 84 21 163/79 91 09/19/19 21:00 85 22 151/80 90 0520 20:50 85 21 151/80 92 0520 20:40 88 20 167/73 93 20 20:30 97 H 19 163/70 94 05/20 20:20 84 21 163/70 91 05/20 20:10 89 24 172/75 88 0520 20:00 98.7 F 86 78 22 161/79 90 0520 19:50 84 20 161/79 91 0520 19:40 89 26 H 163/79 96 20 19:30 89 13 156/101 94 05/22/20 19:20 85 18 156/101 100 05/20 19:10 84 22 168/83 87 0520 19:00 87 14 182/103 91 05/20 18:50 87 19 182/103 88 20 18:40 85 23 172/112 88 0522/20 18:30 84 22 168/93 87 052220 18:20 85 18 192/112 90 09/19/19 18:10 96 H 27 H 168/93 90 09/19/19 18:00 86 14 199/105 92 09/19/19 17:50 84 23 199/105 89 09/19/19 17:40 80 21 190/115 89 09/19/19 17:30 86 21 193/122 94 09/19/19 17:20 81 25 H 193/122 87 09/19/19 17:10 81 21 203/113 89 09/19/19 17:00 90 25 H 195/120 90 09/19/19 16:50 74 18 182/115 89 09/19/19 16:40 80 21 194/115 89 09/19/19 16:30 82 19 209/130 90 09/19/19 16:20 94 H 25 H 209/130 79 L 09/19/19 16:10 79 20 182/115 93 09/19/19 16:00 98.7 F 80 78 24 164/114 91 09/19/19 15:50 77 21 164/114 68 L 09/19/19 15:40 77 13 167/103 86 09/19/19 15:30 80 21 175/110 91 09/19/19 15:20 76 17 175/110 90 09/19/19 15:10 77 21 182/104 88 09/19/19 15:00 77 20 184/106 87 09/19/19 14:50 72 17 184/106 96 09/19/19 14:40 81 19 184/106 92 09/19/19 14:30 75 19 180/109 85 09/19/19 14:20 75 19 180/109 90 09/19/19 14:10 76 21 183/111 83 L 09/19/19 14:00 95 H 82 22 187/109 85 09/19/19 13:50 78 15 187/109 85 09/19/19 13:40 78 14 195/116 89 09/19/19 13:30 76 19 185/120 89 09/19/19 13:20 83 22 185/120 89 09/19/19 13:18 88 18 198/110 96 09/19/19 13:10 86 15 100 09/19/19 13:02 89 09/19/19 12:40 81 18 192/114 94 09/19/19 12:30 74 17 192/114 95 09/19/19 12:20 75 17 196/114 96 09/19/19 12:10 76 18 194/121 95 09/19/19 12:06 95 09/19/19 12:00 74 19 186/124 96 09/19/19 11:50 80 19 186/124 95 09/19/19 11:40 77 20 186/124 96 09/19/19 11:30 81 20 186/124 95 09/19/19 11:20 78 22 194/122 91 09/19/19 11:13 88 18 192/98 95 09/19/19 11:10 78 14 194/122 96 09/19/19 11:00 77 18 190/116 96 09/19/19 10:50 82 21 190/116 95 09/19/19 10:40 82 22 199/123 95 09/19/19 10:30 86 24 199/123 96 09/19/19 10:20 83 22 206/127 98 - Physical Examination HEENT: Positive: PERRL, Normocephaly, Mucus Membranes Moist Neck: Positive: neck supple Neuro: Positive: Grossly Intact Abdomen: Negative: Tender Skin: Negative: Rash Musculoskeletal: No Pain Extremities: Absent: edema - Labs and Meds Cardiac Enzymes 09/19/19 09/20/19 Range/Units 14:35 04:51 AST 34 17 (5-40) units/L CBC 09/20/19 Range/Units 04:51 WBC 6.8 (4.5-11.0) K/mm3 RBC 4.97 (3.65-5.03) M/mm3 Hgb 13.8 (11.8-15.2) gm/dl Hct 42.7 (35.5-45.6) % Plt Count 196 (140-440) K/mm3 Lymph # 1.3 (1.2-5.4) K/mm3 [place] # 0.9 H (0.0-0.8) K/mm3 Eos # 0.5 H (0.0-0.4) K/mm3 Baso # 0.1 (0.0-0.1) K/mm3 Comprehensive Metabolic Panel 09/19/19 09/20/19 Range/Units 14:35 04:51 Sodium 134 L 138 (137-145) mmol/L Potassium 4.9 4.6 (3.6-5.0) mmol/L Chloride 99.9 100.6 (98-107) mmol/L Carbon Dioxide 18 L 26 D (22-30) mmol/L BUN 40 H 44 H (9-20) mg/dL Creatinine 3.3 H 3.6 H (0.8-1.5) mg/dL Glucose 126 H 106 H (75-100) mg/dL Calcium 8.0 L 8.2 L (8.4-10.2) mg/dL AST 34 17 (5-40) units/L ALT 8 6 L (7-56) units/L Alkaline Phosphatase 76 96 (35-129) units/L Total Protein 6.4 6.6 (6.3-8.2) g/dL Albumin 2.1 L 2.5 L (3.9-5) g/dL - Imaging and Cardiology EKG: report reviewed, image reviewed Echo: pending, report reviewed - EKG Sinus rhythms and dysrhythmias: sinus rhythm Ventricular dysrhythmias: ventricular premature com Chamber hypertrophy or enlargement: left ventricular hypertro
--- NOTE | 2019-09-20 10:52 | Progress Note ---
Assessment and Plan 34 y/o male admitted with hypertensive urgency, now improved 1. continue oral and IV meds 2. Stable for transfer to floor 3. All others per primary and other consultants Subjective Date of service: 09/20/19 Principal diagnosis: Volume overload Interval history: Off cardene, stable BP's. Renal changed dose of bumex. Objective - Constitutional Vitals: Vital Signs - 12hr 09/19/19 09/19/19 09/19/19 22:52 23:00 23:01 Temperature Pulse Rate 81 80 80 Pulse Rate [ From Monitor] Respiratory 19 19 19 Rate Blood Pressure 158/72 158/72 149/68 O2 Sat by Pulse 89 88 87 Oximetry 09/19/19 09/19/19 09/19/19 23:10 23:12 23:13 Temperature 98.7 F Pulse Rate 82 78 Pulse Rate [ From Monitor] Respiratory 22 18 Rate Blood Pressure 149/68 149/68 O2 Sat by Pulse 97 96 Oximetry 09/19/19 09/19/19 09/19/19 23:20 23:28 23:30 Temperature Pulse Rate 79 80 80 Pulse Rate [ From Monitor] Respiratory 16 18 21 Rate Blood Pressure 132/66 132/66 132/66 O2 Sat by Pulse 96 96 96 Oximetry 09/19/19 09/19/19 09/20/19 23:40 23:50 00:00 Temperature Pulse Rate 79 77 75 Pulse Rate [ 75 From Monitor] Respiratory 19 17 15 Rate Blood Pressure 133/70 140/66 133/70 O2 Sat by Pulse 97 96 96 Oximetry 09/20/19 09/20/19 09/20/19 00:10 00:20 00:30 Temperature Pulse Rate 72 76 74 Pulse Rate [ From Monitor] Respiratory 16 22 19 Rate Blood Pressure 124/64 131/62 131/62 O2 Sat by Pulse 97 96 96 Oximetry 09/20/19 09/20/19 09/20/19 00:40 00:50 01:00 Temperature Pulse Rate 76 73 73 Pulse Rate [ From Monitor] Respiratory 20 17 14 Rate Blood Pressure 131/62 131/57 137/75 O2 Sat by Pulse 97 96 93 Oximetry 09/20/19 09/20/19 09/20/19 01:10 01:20 01:30 Temperature Pulse Rate 72 73 73 Pulse Rate [ From Monitor] Respiratory 15 14 17 Rate Blood Pressure 131/57 135/66 135/66 O2 Sat by Pulse 95 95 95 Oximetry 09/20/19 09/20/19 09/20/19 01:40 01:50 02:00 Temperature Pulse Rate 72 72 74 Pulse Rate [ From Monitor] Respiratory 16 15 16 Rate Blood Pressure 137/75 144/70 144/70 O2 Sat by Pulse 95 95 95 Oximetry 09/20/19 09/20/19 09/20/19 02:10 02:20 02:30 Temperature Pulse Rate 72 69 77 Pulse Rate [ From Monitor] Respiratory 16 15 19 Rate Blood Pressure 144/70 128/61 O2 Sat by Pulse 96 95 98 Oximetry 09/20/19 09/20/19 09/20/19 02:40 02:50 03:00 Temperature Pulse Rate 69 75 75 Pulse Rate [ From Monitor] Respiratory 17 20 14 Rate Blood Pressure 128/61 145/68 145/68 O2 Sat by Pulse 95 96 95 Oximetry 09/20/19 09/20/19 09/20/19 03:10 03:20 03:24 Temperature 98.5 F Pulse Rate 75 75 Pulse Rate [ From Monitor] Respiratory 17 17 Rate Blood Pressure 143/70 144/78 O2 Sat by Pulse 94 94 Oximetry 09/20/19 09/20/19 09/20/19 03:30 03:40 03:50 Temperature Pulse Rate 72 72 73 Pulse Rate [ From Monitor] Respiratory 16 17 17 Rate Blood Pressure 144/78 145/74 146/78 O2 Sat by Pulse 94 95 96 Oximetry 09/20/19 09/20/19 09/20/19 04:00 04:10 04:20 Temperature Pulse Rate 74 81 75 Pulse Rate [ 73 From Monitor] Respiratory 17 19 21 Rate Blood Pressure 146/78 145/83 130/55 O2 Sat by Pulse 98 98 95 Oximetry 09/20/19 09/20/19 09/20/19 04:30 04:40 04:50 Temperature Pulse Rate 74 72 71 Pulse Rate [ From Monitor] Respiratory 18 14 17 Rate Blood Pressure 130/55 125/65 130/55 O2 Sat by Pulse 95 94 95 Oximetry 09/20/19 09/20/19 09/20/19 05:00 05:10 05:20 Temperature Pulse Rate 72 73 75 Pulse Rate [ From Monitor] Respiratory 18 17 16 Rate Blood Pressure 130/55 139/61 137/63 O2 Sat by Pulse 96 95 97 Oximetry 09/20/19 09/20/1909/19/20 05:30 05:40 05:50 Temperature Pulse Rate 72 71 70 Pulse Rate [ From Monitor] Respiratory 19 17 17 Rate Blood Pressure 137/63 123/56 123/56 O2 Sat by Pulse 96 95 95 Oximetry 09/20/19 09/20/19 09/20/19 06:00 08:00 09:50 Temperature 97.6 F Pulse Rate 70 75 Pulse Rate [ From Monitor] Respiratory 20 Rate Blood Pressure 123/56 146/86 O2 Sat by Pulse 96 Oximetry 09/20/19 09:51 Temperature Pulse Rate 76 Pulse Rate [ From Monitor] Respiratory Rate Blood Pressure 146/86 O2 Sat by Pulse Oximetry - Labs CBC & Chem 7: 09/20/19 04:51 09/20/19 04:51 Labs: Abnormal lab results 09/19/19 09/20/19 09/20/19 Range/Units 14:35 04:51 04:51 RDW 17.2 H (13.2-15.2) % Glenn % (Auto) 13.2 H (0.0-7.3) % Eos % (Auto) 6.6 H (0.0-4.3) % Glenn # 0.9 H (0.0-0.8) K/mm3 Eos # 0.5 H (0.0-0.4) K/mm3 Sodium 134 L (137-145) mmol/L Carbon Dioxide 18 L (22-30) mmol/L BUN 40 H 44 H (9-20) mg/dL Creatinine 3.3 H 3.6 H (0.8-1.5) mg/dL Glucose 126 H 106 H (75-100) mg/dL Calcium 8.0 L 8.2 L (8.4-10.2) mg/dL ALT 6 L (7-56) units/L Albumin 2.1 L 2.5 L (3.9-5) g/dL Medications & Allergies - Medications Allergies/Adverse Reactions: Allergies AYLIN Inhibitors Allergy (Verified 11/16/18 20:37) Unknown aspirin Allergy (Verified 11/12/18 03:21) Bleeding Home Medications: Home Medications Medication Instructions Recorded Confirmed Last Taken Type Bumetanide [Bumetanide 2 mg tab] 2 mg PO BID 11/16/18 09/19/19 Unknown History allopurinoL [Zyloprim] 0.5 tab PO QDAY 11/16/18 09/19/19 Unknown History AtorvaSTATin [Lipitor] 20 mg PO QHS #30 tablet 11/20/18 09/19/19 Unknown Rx NIFEdipine [Nifedipine ER] 60 mg PO DAILY #30 tab.er.24 11/20/18 09/19/19 09/18/19 Rx carvediloL [Coreg] 25 mg PO BID #60 tablet 11/20/18 09/19/19 09/18/19 Rx cloNIDine [Catapres] 0.2 mg PO Q12HR #60 tablet 11/20/18 09/19/19 09/18/19 Rx hydrALAZINE [Apresoline TAB] 100 mg PO TID #90 tab 11/20/18 09/19/19 09/18/19 Rx Active Medications: Generic Name Dose Route Start Last Admin Trade Name Freq PRN Reason Stop Dose Admin Acetaminophen 650 mg 09/19/19 00:07 09/19/19 17:54 Tylenol PO 650 mg Q4H PRN Administration Pain MILD(1-3)/Fever >100.5/BAHENA Allopurinol 50 mg 09/19/19 10:00 09/20/19 09:51 Zyloprim PO 50 mg QDAY AYESHA Administration Atorvastatin Calcium 20 mg 09/19/19 22:00 09/19/19 21:16 Lipitor PO 20 mg QHS AYEHSA Administration Bumetanide 0.5 mg 09/20/19 18:00 Bumex IV BID@0600,1800 AYESHA Carvedilol 25 mg 09/19/19 01:00 09/20/19 09:51 Coreg PO 25 mg BID AYESHA Administration Clonidine HCl 0.2 mg 09/19/19 01:00 09/20/19 09:50 Catapres PO 0.2 mg Q12HR AYESHA Administration Famotidine 10 mg 09/19/19 10:00 09/20/19 09:50 Pepcid PO 10 mg BID AYESHA Administration Hydralazine HCl 100 mg 09/19/19 08:00 09/20/19 09:50 Apresoline PO 100 mg TID AYESHA Administration Nicardipine HCl 50 mg/ Sodium 250 mls @ 25 mls/hr 09/19/19 09:00 09/19/19 23:15 Chloride IV 0 mg/hr TITR AYESHA 0 mls/hr Titration Protocol 5 MG/HR Morphine Sulfate 2 mg 05/22/20 21:24 09/19/19 21:32 Morphine IV 2 mg Q4H PRN Administration Pain, Moderate (4-6) Nifedipine 60 mg 09/19/19 10:00 09/20/19 09:51 Procardia Xl PO 60 mg DAILY AYESHA Administration Ondansetron HCl 4 mg 09/19/19 00:07 Zofran IV Q8H PRN Nausea And Vomiting Potassium Chloride 20 meq 09/19/19 01:00 09/20/19 09:50 K-Dur PO 20 meq BID AYESHA Administration Sodium Chloride 10 ml 09/19/19 01:00 09/20/19 09:51 Sodium Chloride Flush Syringe 10 Ml IV 10 ml BID AYESHA Administration Sodium Chloride 10 ml 09/19/19 00:07 Sodium Chloride Flush Syringe 10 Ml IV PRN PRN LINE FLUSH HEART Score - HEART Score Age: < 45 Risk factors: > 3 risk factors or hx of atherosclerotic disease Troponin: Troponin T 0.042 ng/mL (0.00-0.029) H 09/18/19 23:45 Troponin: 1-3x normal limit - Critical Actions Critical Actions: >7 pts:50-65% risk of adverse cardiac event. Early invasive measures
[2019-09-20] MEDS: MORPHINE 2 MG/1 ML INJ IV PRN ×3 (11:27→21:19)
[2019-09-20 14:22] LABS: Creatinine,Urine 151.2 mg/dL (0.1-20.0)
[2019-09-20 14:50] LABS: Protein/Creatinine Ratio,Urine 2.98
[2019-09-21] MEDS: MORPHINE 2 MG/1 ML INJ IV PRN ×3 (05:30→17:10)
[2019-09-21] MEDS: BUMETANIDE 1 MG/4 ML INJ IV SCH ×2 (05:44→17:10)
[2019-09-21] MEDS: POTASSIUM CHLORIDE ER 20 MEQ TAB PO SCH ×2 (10:10→21:45)
[2019-09-21] MEDS: allopurinoL 100 MG TAB PO SCH (10:10)
[2019-09-21] MEDS: NIFEdipine XL 60 MG TAB PO SCH (10:10)
[2019-09-21] MEDS: carvediloL 25 MG TAB PO SCH ×2 (10:10→21:45)
[2019-09-21] MEDS: hydrALAZINE 100 MG TAB PO SCH ×3 (10:10→21:45)
[2019-09-21] MEDS: cloNIDine 0.2 MG TAB PO SCH ×2 (10:10→21:45)
[2019-09-21] MEDS: FAMOTIDINE 10 MG TAB PO SCH ×2 (10:10→21:45)
--- NOTE | 2019-09-21 10:15 | Progress Note ---
Assessment and Plan 34yo AAM: 1. Hypertensive emergency * vastly improved - now on po meds 2. Severe hypertrophic cardiomyopathy * EF ~30% * ? infiltrative process * mild HFrEF - near/at euvolemia 3. JL * metabolic acidemia * nephrology on board 4. Severe pulmonary hypertension 5. Malnutrition 6. Minimally elevated Trop in setting of #s 1,2,3 * likely clinically insignificant 7. Obesity 8. h/o thoraco-abdominal aortic dissection * appears stable * s/p repair/sx 03/15 pah ~30 min spent in care/coordination of this pt Clinically improving Will follow along Cont IV diuretic no further cardiac workup is warranted at his point - Patient Problems (1) JL (acute kidney injury) Current Visit: Yes Status: Acute (2) Acute CHF (congestive heart failure) Current Visit: Yes Status: Acute (3) Acute heart failure with preserved ejection fraction Current Visit: Yes Status: Acute (4) Acute on chronic kidney failure Current Visit: Yes Status: Acute (5) Chest pain Current Visit: Yes Status: Acute (6) DVT prophylaxis Current Visit: Yes Status: Acute (7) Elevated troponin Current Visit: Yes Status: Acute (8) Hypertensive emergency Current Visit: Yes Status: Acute (9) Renal insufficiency Current Visit: Yes Status: Acute (10) Hypertensive heart disease Current Visit: Yes Status: Chronic (11) S/P aortic dissection repair Current Visit: Yes Status: Chronic (12) Morbid obesity with BMI of 40.0-44.9, adult Current Visit: No Status: Acute Subjective Principal diagnosis: Volume overload Interval history: feels better today Objective Vital Signs Temp Pulse Pulse Resp BP BP Pulse Ox 09/21/19 07:58 98.1 F 74 20 151/85 95 09/21/19 05:29 90 138/88 09/21/19 04:51 68 09/21/19 00:05 98.7 F 72 18 135/75 94 09/20/19 21:11 98.3 F 74 18 154/84 91 09/20/19 20:40 20 96 09/20/19 15:54 97.9 F 72 18 141/71 92 09/20/19 14:20 78 19 137/78 93 09/20/19 14:10 71 14 137/78 95 09/20/19 14:00 21 143/80 94 09/20/19 13:50 70 20 143/80 92 05/23/20 13:40 72 22 143/80 93 09/20/19 13:30 70 18 136/79 94 09/20/19 13:20 77 21 136/79 93 09/20/19 13:10 80 19 136/79 96 09/20/19 13:00 75 18 114/79 95 09/20/19 12:50 79 13 114/79 93 09/20/19 12:40 79 21 114/79 94 09/20/19 12:30 70 17 131/57 92 09/20/19 12:20 70 16 131/57 92 09/20/19 12:10 72 20 131/57 94 09/20/19 12:00 97.7 F 75 72 17 151/82 93 09/20/19 11:50 74 21 151/82 97 09/20/19 11:40 71 17 151/82 93 09/20/19 11:30 78 20 166/88 95 09/20/19 11:20 88 19 145/85 94 09/20/19 11:10 74 21 166/88 92 09/20/19 11:00 78 22 158/74 92 09/20/19 10:50 77 21 147/100 91 09/20/19 10:40 82 21 158/74 82 L 09/20/19 10:30 78 24 146/86 88 09/20/19 10:20 75 21 158/77 89 - Physical Examination HEENT: Positive: PERRL, Normocephaly, Mucus Membranes Moist Neck: Positive: neck supple Neuro: Positive: Grossly Intact Abdomen: Negative: Tender Skin: Negative: Rash Musculoskeletal: No Pain Extremities: Absent: edema - Labs and Meds Comprehensive Metabolic Panel 09/21/19 Range/Units 04:31 Sodium 138 (137-145) mmol/L Potassium 4.9 (3.6-5.0) mmol/L Chloride 101.5 (98-107) mmol/L Carbon Dioxide 25 (22-30) mmol/L BUN 47 H (9-20) mg/dL Creatinine 3.6 H (0.8-1.5) mg/dL Glucose 86 (75-100) mg/dL Calcium 8.0 L (8.4-10.2) mg/dL - Imaging and Cardiology EKG: report reviewed, image reviewed Echo: pending, report reviewed - EKG Sinus rhythms and dysrhythmias: sinus rhythm Ventricular dysrhythmias: ventricular premature com Chamber hypertrophy or enlargement: left ventricular hypertro
--- NOTE | 2019-09-21 11:21 | Progress Note ---
Assessment and Plan 34 y/o male admitted with hypertensive urgency, now improved 1. Pulm status stable. Will sign off. Subjective Date of service: 09/21/19 Principal diagnosis: Volume overload Interval history: No acute events. Stable pulm status. Objective - Constitutional Vitals: Vital Signs - 12hr 09/21/19 09/21/19 09/21/19 00:05 04:51 05:29 Temperature 98.7 F Pulse Rate 72 68 90 Respiratory 18 Rate Blood Pressure 135/75 Blood Pressure 138/88 [Right] O2 Sat by Pulse 94 Oximetry 09/21/19 09/21/19 07:58 11:17 Temperature 98.1 F Pulse Rate 74 72 Respiratory 20 Rate Blood Pressure 151/85 Blood Pressure [Right] O2 Sat by Pulse 95 Oximetry - Labs CBC & Chem 7: 09/20/19 04:51 09/21/19 04:31 Labs: Abnormal lab results 09/20/19 09/21/19 Range/Units 09:22 04:31 BUN 47 H (9-20) mg/dL Creatinine 3.6 H (0.8-1.5) mg/dL Calcium 8.0 L (8.4-10.2) mg/dL Urine Creatinine 151.2 H (0.1-20.0) mg/dL Urine Total Protein 451 H (5-11.8) mg/dL Medications & Allergies - Medications Allergies/Adverse Reactions: Allergies AYLIN Inhibitors Allergy (Verified 11/16/18 20:37) Unknown aspirin Allergy (Verified 11/12/18 03:21) Bleeding Home Medications: Home Medications Medication Instructions Recorded Confirmed Last Taken Type Bumetanide [Bumetanide 2 mg tab] 2 mg PO BID 11/16/18 09/19/19 Unknown History allopurinoL [Zyloprim] 0.5 tab PO QDAY 11/16/18 09/19/19 Unknown History AtorvaSTATin [Lipitor] 20 mg PO QHS #30 tablet 11/20/18 09/19/19 Unknown Rx NIFEdipine [Nifedipine ER] 60 mg PO DAILY #30 tab.er.24 11/20/18 09/19/19 09/18/19 Rx carvediloL [Coreg] 25 mg PO BID #60 tablet 11/20/18 09/19/19 09/18/19 Rx cloNIDine [Catapres] 0.2 mg PO Q12HR #60 tablet 11/20/18 09/19/19 09/18/19 Rx hydrALAZINE [Apresoline TAB] 100 mg PO TID #90 tab 11/20/18 09/19/19 09/18/19 Rx Active Medications: Generic Name Dose Route Start Last Admin Trade Name Freq PRN Reason Stop Dose Admin Acetaminophen 650 mg 09/19/19 00:07 09/19/19 17:54 Tylenol PO 650 mg Q4H PRN Administration Pain MILD(1-3)/Fever >100.5/BAHENA Allopurinol 50 mg 09/19/19 10:00 09/21/19 10:10 Zyloprim PO 50 mg QDAY AYESHA Administration Atorvastatin Calcium 20 mg 09/19/19 22:00 09/20/19 21:18 Lipitor PO 20 mg QHS AYESHA Administration Bumetanide 0.5 mg 09/20/19 18:00 09/21/19 05:44 Bumex IV 0.5 mg BID@0600,1800 AYESHA Administration Carvedilol 25 mg 09/19/19 01:00 09/21/19 10:10 Coreg PO 25 mg BID AYESHA Administration Clonidine HCl 0.2 mg 09/19/19 01:00 09/21/19 10:10 Catapres PO 0.2 mg Q12HR AYESHA Administration Famotidine 10 mg 09/19/19 10:00 09/21/19 10:10 Pepcid PO 10 mg BID AYESHA Administration Hydralazine HCl 100 mg 09/19/19 08:00 09/21/19 10:10 Apresoline PO 100 mg TID AYESHA Administration Morphine Sulfate 2 mg 09/19/19 21:24 09/21/19 10:11 Morphine IV 2 mg Q4H PRN Administration Pain, Moderate (4-6) Nifedipine 60 mg 09/19/19 10:00 09/21/19 10:10 Procardia Xl PO 60 mg DAILY AYESHA Administration Ondansetron HCl 4 mg 09/19/19 00:07 Zofran IV Q8H PRN Nausea And Vomiting Potassium Chloride 20 meq 09/19/19 01:00 09/21/19 10:10 K-Dur PO 20 meq BID AYESHA Administration Sodium Chloride 10 ml 09/19/19 01:00 09/21/19 10:10 Sodium Chloride Flush Syringe 10 Ml IV 10 ml BID AYESHA Administration Sodium Chloride 10 ml 09/19/19 00:07 Sodium Chloride Flush Syringe 10 Ml IV PRN PRN LINE FLUSH HEART Score - HEART Score Age: < 45 Risk factors: > 3 risk factors or hx of atherosclerotic disease Troponin: Troponin T 0.042 ng/mL (0.00-0.029) H 09/18/19 23:45 Troponin: 1-3x normal limit - Critical Actions Critical Actions: >7 pts:50-65% risk of adverse cardiac event. Early invasive measures
--- NOTE | 2019-09-21 16:18 | Progress Note ---
Assessment and Plan Assessment: Renal failure, possible CKD secondary to HTN and Amyloidosis vs. JL secondary to cardiorenal syndrome and Hypertensive emergency Diastolic heart failure Hypertension Hypoxic respiratory failure secondary cardiogenic pulmonary edema Plan: -Renal labs reviewed. Serum creatinine 3.6 today, yesterday's was 3.6 -In June 2018 patient's serum creatinine ranged from 2.8-3.3, likely has CKD due to Hypertensive Neprhosclerosis -Valsartan was discontinued due to advanced renal failure -Off Nicardipine drip -On Clonidine, Carvedilol, Nifedipine and Hydralazine -On Bumex 0.5 mg IV BID -Urine lytes reviewed -Renally dose medications -Strict I&O monitoring -Obtain daily weights -Continue to monitor renal function closely Subjective Date of service: 09/21/19 Principal diagnosis: Volume overload Interval history: Patient seen sitting up in bed. States swelling is better. Objective - Vital Signs Vital signs: Vital Signs - 12hr 09/21/19 09/21/19 09/21/19 04:51 05:29 07:58 Temperature 98.1 F Pulse Rate 68 90 74 Respiratory 20 Rate Blood Pressure 151/85 Blood Pressure 138/88 [Right] O2 Sat by Pulse 95 Oximetry 09/21/19 09/21/19 11:17 11:21 Temperature 98.2 F Pulse Rate 72 72 Respiratory 20 Rate Blood Pressure 156/86 Blood Pressure [Right] O2 Sat by Pulse 96 Oximetry - General Appearance General appearance: well-developed, appears stated age, fatigue EENT: ATNC, PERRL, hearing intact, vision intact Neck: no JVD, supple Respiratory: Present: Decreased Breath Sounds Cardiology: S1S2 Gastrointestinal: normoactive bowel sounds Integumentary: warm and dry Neurologic: alert and oriented x3 Musculoskeletal: joint swelling - Lab 09/20/19 04:51 09/21/19 04:31 Most recent lab results Calcium 8.0 mg/dL (8.4-10.2) L 09/21/19 04:31 Magnesium 1.90 mg/dL (1.7-2.3) 09/21/19 04:31 Urine Creatinine 151.2 mg/dL (0.1-20.0) H 09/20/19 09:22 Urine Sodium 54 mmol/L 09/20/19 09:22 Urine Total Protein 451 mg/dL (5-11.8) H 09/20/19 09:22 Medications & Allergies - Medications Allergies/Adverse Reactions: Allergies AYLIN Inhibitors Allergy (Verified 11/16/18 20:37) Unknown aspirin Allergy (Verified 11/12/18 03:21) Bleeding Home Medications: Home Medications Medication Instructions Recorded Confirmed Last Taken Type Bumetanide [Bumetanide 2 mg tab] 2 mg PO BID 11/16/18 09/19/19 Unknown History allopurinoL [Zyloprim] 0.5 tab PO QDAY 11/16/18 09/19/19 Unknown History AtorvaSTATin [Lipitor] 20 mg PO QHS #30 tablet 11/20/18 09/19/19 Unknown Rx NIFEdipine [Nifedipine ER] 60 mg PO DAILY #30 tab.er.24 11/20/18 09/19/19 09/18/19 Rx carvediloL [Coreg] 25 mg PO BID #60 tablet 11/20/18 09/19/19 09/18/19 Rx cloNIDine [Catapres] 0.2 mg PO Q12HR #60 tablet 11/20/18 09/19/19 09/18/19 Rx hydrALAZINE [Apresoline TAB] 100 mg PO TID #90 tab 11/20/18 09/19/19 09/18/19 Rx Active Medications: Generic Name Dose Route Start Last Admin Trade Name Godwinq PRN Reason Stop Dose Admin Acetaminophen 650 mg 09/19/19 00:07 09/19/19 17:54 Tylenol PO 650 mg Q4H PRN Administration Pain MILD(1-3)/Fever >100.5/BAHENA Allopurinol 50 mg 09/19/19 10:00 09/21/19 10:10 Zyloprim PO 50 mg QDAY AYESHA Administration Atorvastatin Calcium 20 mg 09/19/19 22:00 09/20/19 21:18 Lipitor PO 20 mg QHS AYESHA Administration Bumetanide 0.5 mg 09/20/19 18:00 09/21/19 05:44 Bumex IV 0.5 mg BID@0600,1800 AYESHA Administration Carvedilol 25 mg 09/19/19 01:00 09/21/19 10:10 Coreg PO 25 mg BID AYESHA Administration Clonidine HCl 0.2 mg 09/19/19 01:00 09/21/19 10:10 Catapres PO 0.2 mg Q12HR AYESHA Administration Famotidine 10 mg 09/19/19 10:00 09/21/19 10:10 Pepcid PO 10 mg BID AYESHA Administration Hydralazine HCl 100 mg 09/19/19 08:00 09/21/19 10:10 Apresoline PO 100 mg TID AYESHA Administration Morphine Sulfate 2 mg 09/19/19 21:24 09/21/19 10:11 Morphine IV 2 mg Q4H PRN Administration Pain, Moderate (4-6) Nifedipine 60 mg 09/19/19 10:00 09/21/19 10:10 Procardia Xl PO 60 mg DAILY AYESHA Administration Ondansetron HCl 4 mg 09/19/19 00:07 Zofran IV Q8H PRN Nausea And Vomiting Potassium Chloride 20 meq 09/19/19 01:00 09/21/19 10:10 K-Dur PO 20 meq BID AYESHA Administration Sodium Chloride 10 ml 09/19/19 01:00 09/21/19 10:10 Sodium Chloride Flush Syringe 10 Ml IV 10 ml BID AYESHA Administration Sodium Chloride 10 ml 09/19/19 00:07 Sodium Chloride Flush Syringe 10 Ml IV PRN PRN LINE FLUSH
--- NOTE | 2019-09-21 18:18 | Progress Note ---
Assessment and Plan Assessment and plan: --Hypertensive emergency; on Cardene drip Patient's blood pressures reasonable level Continue current antihypertensives Monitor off Cardene drip --Acute on chronic systolic congestive heart failure EF 40% [2019] Follow echocardiogram for LV function ejection fraction Anti-failure medications, input output monitoring Low-sodium diet, fluid restriction, cardiology following --Elevated troponin/possible NSTEMI Probably nonspecific, patient has multiple risk factors, cardiology consulted --Acute on chronic kidney disease 3 ; Vasomotor nephropathy, worsening renal function Possible cardiorenal syndrome, nephrology following Monitor renal function avoid nephrotoxins --History of gout; continue allopurinol --Dyslipidemia;On statin --Severe malnutrition/hypoalbuminemia; Nutrition supplements and supportive care --Morbid obesity; BMI 44 Patient needs weight reduction when medically stable Partly due to fluid overload --DVT prophylaxis; Lovenox renal dose Closely monitor and adjust management Consults and recommendations noted and appreciated Increase ambulation Possible discharge home tomorrow if stable History Interval history: Patient seen and examined at the bedside this morning medical records reviewed Patient feels slightly better, complains of generalized body pains Alert awake oriented, Not in acute distress vital signs reviewed Denies chest pain or shortness of breath Hospitalist Physical - Constitutional Vitals: Temp Pulse Resp BP Pulse Ox 98.2 F 72 20 156/86 96 09/21/19 11:21 09/21/19 11:21 09/21/19 11:21 09/21/19 11:21 09/21/19 11:21 General appearance: Present: no acute distress, well-nourished, obese (Morbid obesity) - EENT Eyes: Present: PERRL, EOM intact - Neck Neck: Present: supple, normal ROM - Respiratory Respiratory effort: normal Respiratory: bilateral: diminished, rales, negative: rhonchi, wheezing - Cardiovascular Rhythm: regular Heart Sounds: Present: S1 & S2 - Extremities Extremities: no ischemia Extremity abnormal: edema (Bilateral upper extremities, bilateral lower extremities) - Abdominal General gastrointestinal: soft, non-tender, non-distended, normal bowel sounds - Integumentary Integumentary: Present: clear, warm - Psychiatric Psychiatric: appropriate mood/affect, cooperative - Neurologic Neurologic: CNII-XII intact, moves all extremities HEART Score - HEART Score Age: < 45 Risk factors: > 3 risk factors or hx of atherosclerotic disease Troponin: WBC 6.8 K/mm3 (4.5-11.0) 09/20/19 04:51 RBC 4.97 M/mm3 (3.65-5.03) 09/20/19 04:51 Hgb 13.8 gm/dl (11.8-15.2) 09/20/19 04:51 Hct 42.7 % (35.5-45.6) 09/20/19 04:51 MCV 86 fl (84-94) 09/20/19 04:51 MCH 28 pg (28-32) 09/20/19 04:51 MCHC 32 % (32-34) 09/20/19 04:51 RDW 17.2 % (13.2-15.2) H 09/20/19 04:51 Plt Count 196 K/mm3 (140-440) 09/20/19 04:51 Lymph % (Auto) 19.6 % (13.4-35.0) 09/20/19 04:51 [place] % (Auto) 13.2 % (0.0-7.3) H 09/20/19 04:51 Eos % (Auto) 6.6 % (0.0-4.3) H 09/20/19 04:51 Baso % (Auto) 1.0 % (0.0-1.8) 09/20/19 04:51 Lymph # 1.3 K/mm3 (1.2-5.4) 09/20/19 04:51 [place] # 0.9 K/mm3 (0.0-0.8) H 09/20/19 04:51 Eos # 0.5 K/mm3 (0.0-0.4) H 09/20/19 04:51 Baso # 0.1 K/mm3 (0.0-0.1) 09/20/19 04:51 Seg Neutrophils % 59.6 % (40.0-70.0) 09/20/19 04:51 Seg Neutrophils # 4.1 K/mm3 (1.8-7.7) 09/20/19 04:51 PT 13.4 Sec. (12.2-14.9) 09/18/19 16:18 INR 1.01 (0.87-1.13) 09/18/19 16:18 APTT 28.8 Sec. (24.2-36.6) 09/18/19 16:18 Sodium 138 mmol/L (137-145) 09/21/19 04:31 Potassium 4.9 mmol/L (3.6-5.0) 09/21/19 04:31 Chloride 101.5 mmol/L (98-107) 09/21/19 04:31 Carbon Dioxide 25 mmol/L (22-30) 09/21/19 04:31 Anion Gap 16 mmol/L 09/21/19 04:31 BUN 47 mg/dL (9-20) H 09/21/19 04:31 Creatinine 3.6 mg/dL (0.8-1.5) H 09/21/19 04:31 Estimated GFR 23 ml/min 09/21/19 04:31 BUN/Creatinine Ratio 13 % 09/21/19 04:31 Glucose 86 mg/dL (75-100) 09/21/19 04:31 Hemoglobin A1c 5.0 % (4-6) 09/19/19 00:00 Calcium 8.0 mg/dL (8.4-10.2) L 09/21/19 04:31 Magnesium 1.90 mg/dL (1.7-2.3) 09/21/19 04:31 Total Bilirubin 0.40 mg/dL (0.1-1.2) 09/20/19 04:51 AST 17 units/L (5-40) 09/20/19 04:51 ALT 6 units/L (7-56) L 09/20/19 04:51 Alkaline Phosphatase 96 units/L (35-129) 09/20/19 04:51 Troponin T 0.042 ng/mL (0.00-0.029) H 09/18/19 23:45 NT-Pro-B Natriuret Pep 30842 pg/mL (0-450) H 09/18/19 18:06 Total Protein 6.6 g/dL (6.3-8.2) 09/20/19 04:51 Albumin 2.5 g/dL (3.9-5) L 09/20/19 04:51 Albumin/Globulin Ratio 0.6 % 09/20/19 04:51 Triglycerides TNR 09/18/19 16:18 Cholesterol TNR 09/18/19 16:18 LDL Cholesterol Direct TNR 09/18/19 16:18 HDL Cholesterol TNR 09/18/19 16:18 Cholesterol/HDL Ratio TNR 09/18/19 16:18 Urine Creatinine 151.2 mg/dL (0.1-20.0) H 09/20/19 09:22 Protein/Creatinin Ratio 2.98 09/20/19 09:22 Urine Sodium 54 mmol/L 09/20/19 09:22 Urine Total Protein 451 mg/dL (5-11.8) H 09/20/19 09:22 Troponin: 1-3x normal limit - Critical Actions Critical Actions: >7 pts:50-65% risk of adverse cardiac event. Early invasive measures Results - Labs CBC & Chem 7: 09/20/19 04:51 09/21/19 04:31 Labs: Laboratory Last Values WBC 6.8 K/mm3 (4.5-11.0) 09/20/19 04:51 RBC 4.97 M/mm3 (3.65-5.03) 09/20/19 04:51 Hgb 13.8 gm/dl (11.8-15.2) 09/20/19 04:51 Hct 42.7 % (35.5-45.6) 09/20/19 04:51 MCV 86 fl (84-94) 09/20/19 04:51 MCH 28 pg (28-32) 09/20/19 04:51 MCHC 32 % (32-34) 09/20/19 04:51 RDW 17.2 % (13.2-15.2) H 09/20/19 04:51 Plt Count 196 K/mm3 (140-440) 09/20/19 04:51 Lymph % (Auto) 19.6 % (13.4-35.0) 09/20/19 04:51 [place] % (Auto) 13.2 % (0.0-7.3) H 09/20/19 04:51 Eos % (Auto) 6.6 % (0.0-4.3) H 09/20/19 04:51 Baso % (Auto) 1.0 % (0.0-1.8) 09/20/19 04:51 Lymph # 1.3 K/mm3 (1.2-5.4) 09/20/19 04:51 [place] # 0.9 K/mm3 (0.0-0.8) H 09/20/19 04:51 Eos # 0.5 K/mm3 (0.0-0.4) H 09/20/19 04:51 Baso # 0.1 K/mm3 (0.0-0.1) 09/20/19 04:51 Seg Neutrophils % 59.6 % (40.0-70.0) 09/20/19 04:51 Seg Neutrophils # 4.1 K/mm3 (1.8-7.7) 09/20/19 04:51 PT 13.4 Sec. (12.2-14.9) 09/18/19 16:18 INR 1.01 (0.87-1.13) 09/18/19 16:18 APTT 28.8 Sec. (24.2-36.6) 09/18/19 16:18 Sodium 138 mmol/L (137-145) 09/21/19 04:31 Potassium 4.9 mmol/L (3.6-5.0) 09/21/19 04:31 Chloride 101.5 mmol/L (98-107) 09/21/19 04:31 Carbon Dioxide 25 mmol/L (22-30) 09/21/19 04:31 Anion Gap 16 mmol/L 09/21/19 04:31 BUN 47 mg/dL (9-20) H 09/21/19 04:31 Creatinine 3.6 mg/dL (0.8-1.5) H 09/21/19 04:31 Estimated GFR 23 ml/min 09/21/19 04:31 BUN/Creatinine Ratio 13 % 09/21/19 04:31 Glucose 86 mg/dL (75-100) 09/21/19 04:31 Hemoglobin A1c 5.0 % (4-6) 09/19/19 00:00 Calcium 8.0 mg/dL (8.4-10.2) L 09/21/19 04:31 Magnesium 1.90 mg/dL (1.7-2.3) 09/21/19 04:31 Total Bilirubin 0.40 mg/dL (0.1-1.2) 09/20/19 04:51 AST 17 units/L (5-40) 09/20/19 04:51 ALT 6 units/L (7-56) L 09/20/19 04:51 Alkaline Phosphatase 96 units/L (35-129) 09/20/19 04:51 Troponin T 0.042 ng/mL (0.00-0.029) H 09/18/19 23:45 NT-Pro-B Natriuret Pep 09565 pg/mL (0-450) H 09/18/19 18:06 Total Protein 6.6 g/dL (6.3-8.2) 09/20/19 04:51 Albumin 2.5 g/dL (3.9-5) L 09/20/19 04:51 Albumin/Globulin Ratio 0.6 % 09/20/19 04:51 Triglycerides TNR 09/18/19 16:18 Cholesterol TNR 09/18/19 16:18 LDL Cholesterol Direct TNR 09/18/19 16:18 HDL Cholesterol TNR 09/18/19 16:18 Cholesterol/HDL Ratio TNR 09/18/19 16:18 Urine Creatinine 151.2 mg/dL (0.1-20.0) H 09/20/19 09:22 Protein/Creatinin Ratio 2.98 09/20/19 09:22 Urine Sodium 54 mmol/L 09/20/19 09:22 Urine Total Protein 451 mg/dL (5-11.8) H 09/20/19 09:22 - Diagnostic Impressions Diagnostic Impressions: Echocardiogram 09/19/19 00:10 Transthoracic Echocardiogram Indication: Chest pain BP: 198/110 HR: 80 Conclusions *Severe concentric left ventricular hypertrophy is observed. *The estimated ejection fraction is 30-35%. *Abnormal left ventricular diastolic filling is observed, consistent with impaired relaxation. *The left atrium is mildly dilated. *There is evidence of severe pulmonary hypertension. *There is no pericardial effusion. *There is mild dilatation of the aortic root. *Normal bubble study without evidence of intracardiac or intrapulmonary communication. * Findings Left Ventricle: The left ventricular chamber size is normal. Severe concentric left ventricular hypertrophy is observed. Global left ventricular systolic function is severely decreased. The estimated ejection fraction is 30-35%. Abnormal left ventricular diastolic filling is observed, consistent with impaired relaxation. Left Atrium: The left atrium is mildly dilated. Right Ventricle: The right ventricular cavity size is normal. The right ventricular global systolic function is mildly reduced. Right Atrium: The right atrium is moderately dilated. Aortic Valve: The aortic valve structure is normal. Mitral Valve: The mitral valve leaflets are mildly thickened. Tricuspid Valve: The tricuspid valve leaflets are normal. There is mild tricuspid regurgitation. The right ventricular systolic pressure is calculated at 85 mmHg. There is evidence of severe pulmonary hypertension. Pulmonic Valve: The pulmonic valve appears normal. There is trace pulmonic regurgitation. Pericardium: There is no pericardial effusion. Aorta: There is mild dilatation of the aortic root. Venous: The inferior vena cava is dilated. There is no change in the dimension of the inferior vena cava with respiration consistent with markedly increased right atrial pressure. Contrast: Intravenous agitated saline contrast was used to assess intracardiac shunting. Measurements Chambers 2D Name Value Normal Range IVSd (2D) 2.1 cm (0.6 - 1.1) LVPWd (2D) 1.95 cm (0.6 - 1.1) LVIDd (2D) 4.44 cm (3.7 - 5.6) LVIDs (2D) 3.93 cm (2 - 3.8) LV FS (2D) 11.45 % - EF Teichholz (2D) 24.99 % - Ao root diameter (2D) 4.91 cm (2 - 3.7) Volumes/Mass Name Value Normal Range LA ESV SP 4CH (A/L) 69.88 ml - LA ESV SP 2CH (A/L) 77.82 ml - LA ESV BP (A/L) 73.96 ml - LA ESV BP (A/L) index 30.95 ml/m2 - LA ESV SP 4CH (MOD) 66.92 ml - LA ESV SP 2CH (MOD) 77.52 ml - LA ESV BP (MOD) 71.81 ml - LA ESV BP (MOD) index 30.05 ml/m2 - Diastolic/Systolic Function Name Value Normal Range MV E-wave Vmax 0.71 m/sec - MV deceleration time 231.65 msec - MV A-wave Vmax 0.54 m/sec - MV E:A ratio 1.32 ratio - Aortic Valve Name Value Normal Range AV Vmax 1.15 m/sec - AV VTI 23.67 cm - AV peak gradient 5.26 mmHg - AV mean gradient 3.41 mmHg - LVOT diameter 2.25 cm - LVOT Vmax 0.87 m/sec - LVOT VTI 15.13 cm - LVOT peak gradient 3.05 mmHg - LVOT mean gradient 1.66 mmHg - SV LVOT 60.2 ml - LEXII (continuity Vmax) 3.03 cm2 - LEXII (continuity VTI) 2.54 cm2 - Tricuspid Valve Name Value Normal Range TR Vmax 4.2 m/sec - TR peak gradient 70 mmHg - RAP 15 mmHg - RVSP 85 mmHg - IVC diameter 2.57 cm (1.2 - 2.3) Pulmonic Valve/Qp:Qs Name Value Normal Range PV Vmax 0.67 m/sec - PV peak gradient 1.81 mmHg - PV acceleration time 95.15 msec - Muñoz/IV: Voiding Method Toilet IV Catheter Type [Right INT / Saline Lock Antecubital] Active Medications - Current Medications Current Medications: Generic Name Dose Route Start Last Admin Trade Name Freq PRN Reason Stop Dose Admin Acetaminophen 650 mg 09/19/19 00:07 09/19/19 17:54 Tylenol PO 650 mg Q4H PRN Administration Pain MILD(1-3)/Fever >100.5/BAHENA Allopurinol 50 mg 09/19/19 10:00 09/21/19 10:10 Zyloprim PO 50 mg QDAY AYESHA Administration Atorvastatin Calcium 20 mg 09/19/19 22:00 09/20/19 21:18 Lipitor PO 20 mg QHS AYESHA Administration Bumetanide 0.5 mg 09/20/19 18:00 09/21/19 17:10 Bumex IV 0.5 mg BID@0600,1800 AYESHA Administration Carvedilol 25 mg 09/19/19 01:00 09/21/19 10:10 Coreg PO 25 mg BID AYESHA Administration Clonidine HCl 0.2 mg 09/19/19 01:00 09/21/19 10:10 Catapres PO 0.2 mg Q12HR AYESHA Administration Famotidine 10 mg 09/19/19 10:00 09/21/19 10:10 Pepcid PO 10 mg BID AYESHA Administration Hydralazine HCl 100 mg 09/19/19 08:00 09/21/19 14:55 Apresoline PO 100 mg TID AYESHA Administration Nifedipine 60 mg 09/19/19 10:00 09/21/19 10:10 Procardia Xl PO 60 mg DAILY AYESHA Administration Ondansetron HCl 4 mg 09/19/19 00:07 Zofran IV Q8H PRN Nausea And Vomiting Potassium Chloride 20 meq 09/19/19 01:00 09/21/19 10:10 K-Dur PO 20 meq BID AYESHA Administration Sodium Chloride 10 ml 09/19/19 01:00 09/21/19 10:10 Sodium Chloride Flush Syringe 10 Ml IV 10 ml BID AYESHA Administration Sodium Chloride 10 ml 09/19/19 00:07 Sodium Chloride Flush Syringe 10 Ml IV PRN PRN LINE FLUSH
[2019-09-21] MEDS: ACETAMINOPHEN 325 MG TAB PO PRN (21:46)
[2019-09-22] MEDS: BUMETANIDE 1 MG/4 ML INJ IV SCH ×2 (04:26→06:32)
[2019-09-22 05:23] LABS: Calcium 8.1 mg/dL (8.4-10.2)
--- NOTE | 2019-09-22 07:49 | Progress Note ---
Assessment and Plan Assessment: Acute kidney injury possibly CKD secondary to HTN and Amyloidosis vs. JL secondary to cardiorenal syndrome and Hypertensive emergency Acute on chronic systolic congestive heart failure Hypertensive Emgergency Severe Hypertrophic Cardiomyopathy Severe Pulmonary HTN Acute Hypoxic respiratory failure secondary cardiogenic pulmonary edema Hx of Gout Left Arm Edema Plan: -Renal labs reviewed, SCr level was 3.4 today, yesterday's SCr level was 3.6 -In June 2018 patient's serum creatinine ranged from 2.8-3.3, likely has CKD due to Hypertensive Nephrosclerosis -Valsartan discontinued due to advanced renal failure -Off Nicardipine drip -Currently on Clonidine, Carvedilol, Nifedipine and Hydralazine -On Bumex 0.5 mg IV BID -Renally dose medications -Strict I&O -No UOP noted -Renal plan d/w Dr Read Subjective Date of service: 09/22/19 Principal diagnosis: Volume overload Interval history: Pt seen in bed, denies shortness of breath, nausea, or vomiting, no acute distress. Pt c/o left arm swelling, awaiting left arm doppler Objective - Vital Signs Vital signs: Vital Signs - 12hr 09/21/19 09/21/19 09/21/19 19:50 20:01 23:43 Temperature 98.4 F 98.7 F Pulse Rate 77 78 Respiratory 20 18 18 Rate Blood Pressure 155/89 142/79 O2 Sat by Pulse 96 92 95 Oximetry 09/22/19 04:44 Temperature 98.5 F Pulse Rate 73 Respiratory 18 Rate Blood Pressure 156/92 O2 Sat by Pulse 97 Oximetry - General Appearance General appearance: well-developed EENT: ATNC Neck: no JVD Respiratory: Present: Decreased Breath Sounds Cardiology: regular, S1S2 Gastrointestinal: normoactive bowel sounds, no tenderness Integumentary: warm and dry Neurologic: alert and oriented x3 Musculoskeletal: other (Left arm edematous, trace edema to BLE) Psychiatric: cooperative - Lab 09/20/19 04:51 09/22/19 04:49 Most recent lab results Calcium 8.1 mg/dL (8.4-10.2) L 09/22/19 04:49 Magnesium 1.90 mg/dL (1.7-2.3) 09/21/19 04:31 Urine Creatinine 151.2 mg/dL (0.1-20.0) H 09/20/19 09:22 Urine Sodium 54 mmol/L 09/20/19 09:22 Urine Total Protein 451 mg/dL (5-11.8) H 09/20/19 09:22 Medications & Allergies - Medications Allergies/Adverse Reactions: Allergies AYLIN Inhibitors Allergy (Verified 11/16/18 20:37) Unknown aspirin Allergy (Verified 11/12/18 03:21) Bleeding Home Medications: Home Medications Medication Instructions Recorded Confirmed Last Taken Type Bumetanide [Bumetanide 2 mg tab] 2 mg PO BID 11/16/18 09/19/19 Unknown History allopurinoL [Zyloprim] 0.5 tab PO QDAY 11/16/18 09/19/19 Unknown History AtorvaSTATin [Lipitor] 20 mg PO QHS #30 tablet 11/20/18 09/19/19 Unknown Rx NIFEdipine [Nifedipine ER] 60 mg PO DAILY #30 tab.er.24 11/20/18 09/19/19 09/18/19 Rx carvediloL [Coreg] 25 mg PO BID #60 tablet 11/20/18 09/19/19 09/18/19 Rx cloNIDine [Catapres] 0.2 mg PO Q12HR #60 tablet 11/20/18 09/19/19 09/18/19 Rx hydrALAZINE [Apresoline TAB] 100 mg PO TID #90 tab 11/20/18 09/19/19 09/18/19 Rx Active Medications: Generic Name Dose Route Start Last Admin Trade Name Freq PRN Reason Stop Dose Admin Acetaminophen 650 mg 09/19/19 00:07 09/21/19 21:46 Tylenol PO 650 mg Q4H PRN Administration Pain MILD(1-3)/Fever >100.5/BAHENA Allopurinol 50 mg 09/19/19 10:00 09/21/19 10:10 Zyloprim PO 50 mg QDAY AYESHA Administration Atorvastatin Calcium 20 mg 09/19/19 22:00 09/21/19 21:45 Lipitor PO 20 mg QHS AYESHA Administration Bumetanide 0.5 mg 09/20/19 18:00 09/22/19 06:32 Bumex IV Not Given BID@0600,1800 AYESHA Carvedilol 25 mg 09/19/19 01:00 09/21/19 21:45 Coreg PO 25 mg BID AYESHA Administration Clonidine HCl 0.2 mg 09/19/19 01:00 09/21/19 21:45 Catapres PO 0.2 mg Q12HR AYESHA Administration Famotidine 10 mg 09/19/19 10:00 09/21/19 21:45 Pepcid PO 10 mg BID AYESHA Administration Hydralazine HCl 100 mg 09/19/19 08:00 09/21/19 21:45 Apresoline PO 100 mg TID AYESHA Administration Nifedipine 60 mg 09/19/19 10:00 09/21/19 10:10 Procardia Xl PO 60 mg DAILY AYESHA Administration Ondansetron HCl 4 mg 09/19/19 00:07 Zofran IV Q8H PRN Nausea And Vomiting Sodium Chloride 10 ml 09/19/19 01:00 09/21/19 21:45 Sodium Chloride Flush Syringe 10 Ml IV 10 ml BID AYESHA Administration Sodium Chloride 10 ml 09/19/19 00:07 Sodium Chloride Flush Syringe 10 Ml IV PRN PRN LINE FLUSH
[2019-09-22] MEDS: carvediloL 25 MG TAB PO SCH (10:20)
[2019-09-22] MEDS: FAMOTIDINE 10 MG TAB PO SCH (10:20)
[2019-09-22] MEDS: NIFEdipine XL 60 MG TAB PO SCH (10:20)
[2019-09-22] MEDS: cloNIDine 0.2 MG TAB PO SCH (10:20)
[2019-09-22] MEDS: hydrALAZINE 100 MG TAB PO SCH ×2 (10:21→14:31)
[2019-09-22] MEDS: allopurinoL 100 MG TAB PO SCH (10:21)
--- NOTE | 2019-09-22 11:42 | Progress Note ---
Assessment and Plan 34yo AAM: 1. Hypertensive emergency * vastly improved - now on po meds 2. Severe hypertrophic cardiomyopathy * EF ~30% * ? infiltrative process * mild HFrEF - near/at euvolemia 3. JL * metabolic acidemia * nephrology on board 4. Severe pulmonary hypertension 5. Malnutrition 6. Minimally elevated Trop in setting of #s 1,2,3 * likely clinically insignificant 7. Obesity 8. h/o thoraco-abdominal aortic dissection * appears stable * s/p repair/sx 03/15 pah ~30 min spent in care/coordination of this pt Clinically improving Will follow along Cont IV diuretic no further cardiac workup is warranted at his point - Patient Problems (1) JL (acute kidney injury) Current Visit: Yes Status: Acute (2) Acute CHF (congestive heart failure) Current Visit: Yes Status: Acute (3) Acute heart failure with preserved ejection fraction Current Visit: Yes Status: Acute (4) Acute on chronic kidney failure Current Visit: Yes Status: Acute (5) Chest pain Current Visit: Yes Status: Acute (6) DVT prophylaxis Current Visit: Yes Status: Acute (7) Elevated troponin Current Visit: Yes Status: Acute (8) Hypertensive emergency Current Visit: Yes Status: Acute (9) Renal insufficiency Current Visit: Yes Status: Acute (10) Hypertensive heart disease Current Visit: Yes Status: Chronic (11) S/P aortic dissection repair Current Visit: Yes Status: Chronic (12) Morbid obesity with BMI of 40.0-44.9, adult Current Visit: No Status: Acute Subjective Date of service: 09/22/19 Principal diagnosis: Volume overload Interval history: feels better today Objective Vital Signs Temp Pulse Resp BP Pulse Ox 09/22/19 07:49 98.2 F 70 24 155/90 94 09/22/19 04:44 98.5 F 73 18 156/92 97 09/21/19 23:43 98.7 F 78 18 142/79 95 09/21/19 20:01 98.4 F 77 18 155/89 92 09/21/19 19:50 20 96 09/21/19 15:56 98.2 F 75 18 148/86 95 - Physical Examination HEENT: Positive: PERRL, Normocephaly, Mucus Membranes Moist Neck: Positive: neck supple Neuro: Positive: Grossly Intact Abdomen: Negative: Tender Skin: Negative: Rash Musculoskeletal: No Pain Extremities: Absent: edema - Labs and Meds Comprehensive Metabolic Panel 09/22/19 Range/Units 04:49 Sodium 138 (137-145) mmol/L Potassium 5.0 (3.6-5.0) mmol/L Chloride 101.6 (98-107) mmol/L Carbon Dioxide 25 (22-30) mmol/L BUN 47 H (9-20) mg/dL Creatinine 3.4 H (0.8-1.5) mg/dL Glucose 93 (75-100) mg/dL Calcium 8.1 L (8.4-10.2) mg/dL - Imaging and Cardiology EKG: report reviewed, image reviewed Echo: pending, report reviewed - EKG Sinus rhythms and dysrhythmias: sinus rhythm Ventricular dysrhythmias: ventricular premature com Chamber hypertrophy or enlargement: left ventricular hypertro
--- NOTE | 2019-09-22 14:52 | Discharge Summary ---
Providers - Providers Date of Admission: 09/18/19 18:58 Date of discharge: 09/22/19 Attending physician: ROSARIO VANEGAS 09/18/19 21:06 Consult to Physician [CONS] Urgent Comment: Consulting Provider: VESTA SEVILLA Physician Instructions: Reason For Exam: chf exacerbation, chest pain 09/19/19 08:08 Consult to Physician [CONS] Routine Comment: Consulting Provider: TONY HOPKINS Physician Instructions: Reason For Exam: raghu/CKD Primary care physician: UNDERWRITING SUPPORT MANAGER Hospitalization Reason for admission: Chest pain/acute on chronic systolic congestive heart failure Condition: Stable Pertinent studies: Chest x-ray; airspace changes both lower lobes pneumonia is a concern Echocardiogram; EF 30- 35% Hospital course: 34-year-old male with a past medical history of CHF with a EF of 40%, hypertension, aortic dissection, and open heart surgery for aortic valve replacement was admitted through emergency room with the complaints generalized swelling for 2 weeks and shortness of breath x3 days. Orthopnea present.Class IV NYHA symptoms .SOB on minimal exertion. Patient complains of generalized body aches and dull intermittent sternal chest pain exacerbated by cough. Patient does complain of a cough productive of clear sputum but denies fever or known COVID exposures. Patient is compliant with all his medications but does not have a list of them currently. Last admission here in October 2018. Patient had a negative stress test with a EF of 40% during that admission. Patient's bilingual teacher is Dr. Pérez affiliated with [facility] patient does not have a primary care doctor. Patient was admitted appropriately managed subsequently evaluated by cardiology and nephrology, medications optimized Patient counseled the importance of adhering to the treatment plan Patient symptoms slowly but gradually improved Discharge diagnosis: --Hypertensive emergency; on Cardene drip Patient's blood pressures reasonable level Continue current antihypertensives Monitor off Cardene drip --Acute on chronic systolic congestive heart failure EF 40% [2019] Follow echocardiogram for LV function ejection fraction Anti-failure medications, input output monitoring Low-sodium diet, fluid restriction, cardiology following --Patient has chronic bilateral upper and lower extremity massive edema Continue diuretics and other anti-failure medications Advised to elevate the limb for support --Elevated troponin/possible NSTEMI Probably nonspecific, patient has multiple risk factors, cardiology consulted --Acute on chronic kidney disease 3 ; Vasomotor nephropathy, worsening renal function Possible cardiorenal syndrome, nephrology following Monitor renal function avoid nephrotoxins --History of gout; continue allopurinol --Dyslipidemia;On statin --Severe malnutrition/hypoalbuminemia; Nutrition supplements and supportive care --Morbid obesity; BMI 44 Patient needs weight reduction when medically stable Partly due to fluid overload --DVT prophylaxis; Lovenox renal dose --Medical noncompliance; strongly advised to comply with Medications, diet and follow-up visits Closely monitor and adjust management Consults and recommendations noted and appreciated Patient is ambulatory and tolerating oral nutrition Cleared by consultants for discharge and follow-up per schedule Hemodynamically and clinically stable at discharge Disposition: DC- TO HOME OR SELFCARE Time spent for discharge: 33 min Core Measure Documentation - Palliative Care Palliative Care/ Comfort Measures: Not Applicable - Core Measures Any of the following diagnoses?: heart failure - Heart Failure Discharge Requirements AYLIN/ARB for LVSD if EF <40%: No Reason for no AYLIN/ARB: Allergy or sensitivity Beta khoi at discharge: Yes Exam - Constitutional Vitals: Temp Pulse Resp BP Pulse Ox 98.3 F 69 18 144/85 96 09/22/19 11:42 09/22/19 11:46 09/22/19 11:42 09/22/19 11:42 09/22/19 11:42 General appearance: Present: no acute distress, obese (Morbidly obese) - EENT Eyes: Present: PERRL, EOM intact ENT: hearing intact, clear oral mucosa - Neck Neck: Present: supple, normal ROM - Respiratory Respiratory effort: normal Respiratory: bilateral: diminished, rales, negative: rhonchi, wheezing - Cardiovascular Rhythm: regular Heart Sounds: Present: S1 & S2 - Extremities Extremities: abnormal (Bilateral upper extremity massive edema) Extremity abnormal: other - Abdominal General gastrointestinal: Present: soft, non-tender, non-distended, normal bowel sounds - Integumentary Integumentary: Present: clear, warm - Musculoskeletal Musculoskeletal: strength equal bilaterally - Psychiatric Psychiatric: appropriate mood/affect, cooperative - Neurologic Neurologic: CNII-XII intact, moves all extremities Plan Activity: advance as tolerated Diet: other (Cardiac diet) Additional Instructions: Elevate the upper extremities while resting to reduce edema. If you have worsening symptoms contact MD or go to emergency room Follow up with: PRIMARY CARE, [Primary Care Provider] - 3-5 Days TAMI SEVILLA MD [Staff Physician] - 7 Days TONY HOPKINS MD [Staff Physician] - 7 Days Forms: Discharge Signature Page Prescriptions: hydrALAZINE [Apresoline TAB] 100 mg PO TID #90 tab Bumetanide (Nf) [Bumex 0.5mg tab] 0.5 mg PO BID #60 tab cloNIDine [Catapres] 0.2 mg PO Q12HR #60 tablet carvediloL [Coreg] 25 mg PO BID #60 tablet AtorvaSTATin [Lipitor] 20 mg PO QHS #30 tablet NIFEdipine XL [Procardia Xl] 60 mg PO DAILY #30 tablet
[2019-09-22 19:26] VITALS: BP 135/75
[2019-09-25] MEDS ORDERED: FUROSEMIDE 40 MG/4 ML INJ IV SCH (08:30)
== END 2019-09-22 20:19 | disposition home or self-care (01) | DRG 280 ==
LOC: ED 15:32 → CC1 18:58 → 4A 09-20 14:48
PROVIDERS: ADMIT Internal Medicine; ATTEND Internal Medicine
DX: I13.0 Hypertensive heart and chronic kidney disease with heart failure and stage 1 through stage 4 chronic kidney disease, or unspecified chronic kidney disease (principal); N17.0 Acute kidney failure with tubular necrosis; I21.4 Non-ST elevation (NSTEMI) myocardial infarction; E43 Unspecified severe protein-calorie malnutrition; I71.00 Dissection of unspecified site of aorta; J81.0 Acute pulmonary edema; J96.01 Acute respiratory failure with hypoxia; I50.43 Acute on chronic combined systolic (congestive) and diastolic (congestive) heart failure; I16.1 Hypertensive emergency; N18.3 Chronic kidney disease, stage 3 (moderate); M10.9 Gout, unspecified; E78.2 Mixed hyperlipidemia; E66.01 Morbid (severe) obesity due to excess calories; I42.2 Other hypertrophic cardiomyopathy; I27.20 Pulmonary hypertension, unspecified; E85.9 Amyloidosis, unspecified; I16.0 Hypertensive urgency; Z95.4 Presence of other heart-valve replacement; Z82.49 Family history of ischemic heart disease and other diseases of the circulatory system; Z88.6 Allergy status to analgesic agent; Z88.8 Allergy status to other drugs, medicaments and biological substances; Z68.41 Body mass index [BMI] 40.0-44.9, adult; Z71.3 Dietary counseling and surveillance
CPT/HCPCS: 36415; 71046; 80048; 80053; 80061; 82570; 83036; 83735; 83880; 84156; 84300; 84484; 85025; 85610; 85730; 93005; 93306; G0378; A9270-GY; J1940; J2270; J2405; J7050

== ENCOUNTER 2020-04-12 07:08 | Day surgery (SDC) | payer MEDICAID ==
[2020-04-12 08:46] LABS: Hematocrit 36.3 % (35.5-45.6); Hemoglobin 11.7 gm/dl (11.8-15.2); Mean Corpuscular HGB Conc 32 % (32-34); Mean Corpuscular Volume 92 fl (84-94); Platelet Count 162 K/mm3 (140-440); Red Blood Count 3.95 M/mm3 (3.65-5.03); Red Cell Distribution Width 19.9 % (13.2-15.2)
[2020-04-12] MEDS ORDERED: SODIUM CHLORIDE 0.9% 1000 ML 1,000 ML ONE (09:00)
[2020-04-12] MEDS ORDERED: carvediloL 25 MG TAB PO NR (09:02)
[2020-04-12] MEDS ORDERED: ONDANSETRON 4 MG/2 ML INJ IV PRN (09:02)
[2020-04-12] MEDS ORDERED: HYDROmorphone 1 MG/1 ML INJ IV PRN ×2 (09:02)
--- NOTE | 2020-04-12 09:03 | Anesthesia Day of Surgery ---
Anesthesia Day of Surgery - Day of Surgery Patient Examined: Yes Patient H&P Reviewed: Yes Patient is NPO: Yes Beta Blockers: Yes
[2020-04-12 09:06] LABS: Calcium 9.2 mg/dL (8.4-10.2)
--- NOTE | 2020-04-12 09:07 | Anesthesia Consultation ---
Anesthesia Consult and Med Hx Date of service: 04/12/20 - Airway Anesthetic Teeth Evaluation: Good ROM Head & Neck: Adequate Mental/Hyoid Distance: Adequate Mallampati Class: Class II Intubation Access Assessment: Good - Pre-Operative Health Status ASA Pre-Surgery Classification: ASA4 Proposed Anesthetic Plan: General - Pulmonary Hx Respiratory Symptoms: No (+2FS) Hx Sleep Apnea: Yes (No CPAP) - Cardiovascular System Hx Hypertension: Yes (EF 40%. ? 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
[2020-04-12] MEDS ORDERED: SODIUM CHLORIDE 0.9% 1000 ML 1,000 ML IV SCH (09:15)
[2020-04-12] MEDS ORDERED: MIDAZOLAM 2 MG/2 ML INJ IV NR (10:00)
[2020-04-12] MEDS ORDERED: fentaNYL 100 MCG/2 ML INJ ONE (11:24)
[2020-04-12] MEDS ORDERED: BUPIVACAINE/PF (0.25%) 2.5 MG/ML 30 ML VIAL INFILTRATI ONE (11:24)
[2020-04-12] MEDS ORDERED: LIDOCAINE (1%) 10 MG/1 ML VIAL 20 ML MDV ONE (11:29)
[2020-04-12] MEDS ORDERED: HEPARIN 10,000 UNITS/10 ML VIAL ONE (11:36)
[2020-04-12] MEDS ORDERED: THROMBIN (RECOMBINANT) 5,000 UNIT VIAL TP ONE ×2 (11:36→12:30)
[2020-04-12] MEDS ORDERED: SODIUM CHLORIDE 0.9% 250ML 250 ML ONE (11:36)
[2020-04-12] MEDS ORDERED: PROTAMINE SULFATE 50 MG/5 ML INJ ONE (11:36)
[2020-04-12] MEDS ORDERED: propofoL 200 MG/20 ML VIAL IV ONE ×5 (11:58→14:10)
[2020-04-12] MEDS ORDERED: ONDANSETRON 4 MG/2 ML INJ ONE (12:00)
[2020-04-12] MEDS ORDERED: GLYCOPYRROLATE 0.4 MG/2 ML INJ ONE (12:00)
[2020-04-12] MEDS ORDERED: ceFAZolin 1 GM VIAL ONE (12:06)
[2020-04-12] MEDS ORDERED: GELATIN SPONGE SIZE 100 TP ONE (12:21)
[2020-04-12] MEDS ORDERED: MIDAZOLAM 2 MG/2 ML INJ ONE (12:26)
[2020-04-12] MEDS ORDERED: SODIUM CHLORIDE 0.9% 250 ML IVPB IV ONE (12:30)
[2020-04-12] MEDS ORDERED: HEPARIN 10,000 UNITS/10 ML VIAL IV ONE (12:30)
[2020-04-12] MEDS ORDERED: GELATIN SPONGE 12 X 7 TP ONE (12:30)
[2020-04-12] MEDS ORDERED: LIDOCAINE (1%) 10 MG/1 ML VIAL 20 ML MDV INFILTRATI ONE (12:45)
[2020-04-12] MEDS ORDERED: KETAMINE/STERILE WATER 50 MG/ML SYRINGE ONE (12:49)
--- NOTE | 2020-04-12 15:11 | Post Operative Note ---
Date of procedure: 04/12/20 Pre-op diagnosis: ESRD Post-op diagnosis: same Procedure: Left arm basilic vein transposition Anesthesia: MAC, regional, local Surgeon: CAITLIN CLARK Estimated blood loss: other (25 ml) Pathology: none Condition: stable Disposition: PACU
--- NOTE | 2020-04-12 15:13 | Short Stay Summary ---
Short Stay Documentation Date of service: 04/12/20 - History H&P: obtained from office Past Medical History: ESRD, hypertension - Allergies and Medications Current Medications: Allergies AYLIN Inhibitors Allergy (Verified 04/09/20 16:38) Unknown Home Medications Medication Instructions Recorded Confirmed Last Taken Type Bumetanide [Bumetanide 2 mg tab] 2 mg PO BID 11/16/18 09/19/19 Unknown History allopurinoL [Zyloprim] 0.5 tab PO QDAY 11/16/18 09/19/19 Unknown History NIFEdipine [Nifedipine ER] 60 mg PO DAILY #30 tab.er.24 11/20/18 09/19/19 09/18/19 Rx AtorvaSTATin [Lipitor] 20 mg PO QHS #30 tablet 09/22/19 Unknown Rx Bumetanide (Nf) [Bumex 0.5mg tab] 0.5 mg PO BID #60 tab 09/22/19 Unknown Rx NIFEdipine XL [Procardia Xl] 60 mg PO DAILY #30 tablet 09/22/19 Unknown Rx carvediloL [Coreg] 25 mg PO BID #60 tablet 09/22/19 Unknown Rx cloNIDine [Catapres] 0.2 mg PO Q12HR #60 tablet 09/22/19 Unknown Rx hydrALAZINE [Apresoline TAB] 100 mg PO TID #90 tab 09/22/19 Unknown Rx Active Medications Carvedilol (Carvedilol 25 Mg Tab) 25 mg PO ONCE NR Stop: 04/12/20 20:00 Last Admin: 04/12/20 09:50 Dose: 25 mg Documented by: Hydromorphone HCl (Hydromorphone 1 Mg/1 Ml Inj) 0.25 mg IV Q10MIN PRN PRN Reason: Pain, Moderate (4-6) Stop: 04/12/20 23:00 Hydromorphone HCl (Hydromorphone 1 Mg/1 Ml Inj) 0.5 mg IV Q10MIN PRN PRN Reason: Pain , Severe (7-10) Stop: 04/12/20 23:00 Sodium Chloride (Nacl 0.9% 1000 Ml) 1,000 mls @ 42 mls/hr IV DIRECT AYESHA Last Admin: 04/12/20 08:20 Dose: 42 mls/hr Documented by: Midazolam HCl (Midazolam 2 Mg/2 Ml Inj) 2 mg IV PREOP NR Stop: 04/12/20 23:59 Ondansetron HCl (Ondansetron 4 Mg/2 Ml Inj) 4 mg IV ONCE PRN PRN Reason: Nausea And Vomiting Stop: 04/12/20 20:00 - Physical exam General appearance: no acute distress Lungs: Normal air movement Heart: Regular rate Extremities: no ischemia - Hospital course Hospital course: the patient was taken to the operating room and had a left arm fistula creation performed. please refer to the operative note concerning details of the procedure. the patient tolerated the procedure well and was discharged home in stable condition. - Disposition Condition at discharge: Stable Disposition: DC-01 TO HOME OR SELFCARE Short Stay Discharge Plan Follow up with: PRIMARY CARE, [Primary Care Provider] - 7 Days
[2020-04-12] MEDS ORDERED: oxyCODONE /ACETAMINOPHEN 5-325MG TAB PO PRN (15:30)
--- NOTE | 2020-04-12 15:41 | Operative Report ---
STAFF SURGEON: Dr. Nash Reyes. PREOPERATIVE DIAGNOSIS: End-stage renal disease. POSTOPERATIVE DIAGNOSIS: End-stage renal disease. PROCEDURE PERFORMED: Left arm basilic vein transposition. ESTIMATED BLOOD LOSS: 25 mL. ANESTHESIA: Regional local MAC. COMPLICATIONS: None. INDICATIONS FOR PROCEDURE: This is a 34-year-old gentleman with end-stage renal disease, on hemodialysis via left IJ PermCath, who presented for upper extremity access creation. The patient had a bedside ultrasound performed in the clinic appointment, which demonstrated a potentially marginal veins in the upper arm and the left arm could be suitable for a fistula creation. The patient was explained the risks, benefits and alternatives of procedure, expressed understanding and wished to proceed. DESCRIPTION OF PROCEDURE: After appropriate consent was obtained, the patient was brought back to the operating room and placed on the operating table in supine position. Left arm extended. The patient was given appropriate medication for deep sedation. The left arm was prepped and draped in usual sterile fashion with ChloraPrep. Appropriate preoperative antibiotics were administered and appropriate time-out performed indicating correct patient, procedure, and site of the procedure. I then began the operation by making a longitudinal incision near the antecubital fossa. This was carried through the subcutaneous tissue with a combination of blunt dissection and electrocautery. The basilic vein was identified and found to be suitable for fistula creation. Then, we then extended our incision towards the axilla, so the vein was exposed in its entirety. The branches were taken down with a silk suture and transected. Then, once the vein had been mobilized, we then placed a clamp in the distal aspect of the arm. The vein was transected, flushed with heparinized saline. There was one area that did require repair with a 6-0 Prolene suture. The anterior surface was marked. The stump was ligated with a silk suture. We then proceeded to continue our dissection laterally to the bicipital aponeurosis to expose the brachial artery, was found to be suitable for arterial inflow and was mobilized for appropriate distance, both proximally and distally. We then created a subcutaneous tunnel in a curvilinear fashion and the vein was brought through the tunnel with care to avoid any kinking or twisting. Then, we proceeded to administer 5000 units of unfractionated heparin intravenously. After appropriate timeout elapsed, vascular clamps were placed on the brachial artery, both proximally and distally. A longitudinal arteriotomy was made with an 11 blade and extended with Iraheta scissors. The vein was appropriately spatulated and an end-to-side anastomosis was then performed with a running 6-0 Prolene suture. Once complete, we then released our clamp. Flow through the fistula had a nice palpable thrill. We looked to obtain hemostasis in the wound bed and suture line with hemostatic agents. Once we were satisfied with hemostasis, we then proceeded to close the wound, closed the deep subcutaneous layer with interrupted 3-0 PDS and the skin was approximated with catherine. Appropriate dressing was placed. The patient tolerated the procedure well, emerged from the deep sedation and was sent to recovery in stable condition. All the sponges, instrument and needle counts were correct at completion of the operation. JOB# [id number] GIOVANNA/CORKY
--- NOTE | 2020-04-12 16:10 | Post Anesthesia Evaluation ---
- Post Anesthesia Evaluation Patient Participated: Yes Airway Patent: Yes Stable Respiratory Function: Yes Nausea/Vomiting: No Temp > 96.8F: Yes Pain Manageable: Yes Adequeate Hydration: Yes Anesthesia Complications: No Block Receding Appropriately: Yes Patient on Ventilator: No
[2020-04-12 22:06] VITALS: BP 139/87
== END 2020-04-12 07:09 | disposition home or self-care (01) ==
LOC: OR 07:08
PROVIDERS: ATTEND Surgery Vascular Surgery
DX: I13.2 Hypertensive heart and chronic kidney disease with heart failure and with stage 5 chronic kidney disease, or end stage renal disease (principal); N18.6 End stage renal disease; I50.33 Acute on chronic diastolic (congestive) heart failure; E66.01 Morbid (severe) obesity due to excess calories; E78.5 Hyperlipidemia, unspecified; I25.10 Atherosclerotic heart disease of native coronary artery without angina pectoris; I73.9 Peripheral vascular disease, unspecified; E78.00 Pure hypercholesterolemia, unspecified; G47.30 Sleep apnea, unspecified; M10.9 Gout, unspecified; M19.90 Unspecified osteoarthritis, unspecified site; Z79.899 Other long term (current) drug therapy; Z88.8 Allergy status to other drugs, medicaments and biological substances; Z68.33 Body mass index [BMI] 33.0-33.9, adult; Z98.890 Other specified postprocedural states; Z82.49 Family history of ischemic heart disease and other diseases of the circulatory system
CPT/HCPCS: 36415; 36819; 80048; 85027; A4649; J0690; J1644; J2250; J2405; J2704; J2720; J3010; J3490; J7030; J7050

== ENCOUNTER 2020-09-24 09:09 | Day surgery (SDC) | payer MEDICAID ==
[~2020-09-24 09:09] MED LIST: MIDAZOLAM 2 MG/2 ML INJ IV NR; SODIUM CHLORIDE 0.9% 1000 ML 1,000 ML IV SCH; fentaNYL 100 MCG/2 ML INJ IV PRN
[2020-09-24 10:23] LABS: Hematocrit 35.3 % (35.5-45.6); Hemoglobin 11.7 gm/dl (11.8-15.2); Mean Corpuscular HGB Conc 33 % (32-34); Mean Corpuscular Volume 88 fl (84-94); Platelet Count 160 K/mm3 (140-440); Red Blood Count 3.99 M/mm3 (3.65-5.03)
--- NOTE | 2020-09-24 10:42 | Anesthesia Consultation ---
Anesthesia Consult and Med Hx Date of service: 09/24/20 - Airway Anesthetic Teeth Evaluation: Good ROM Head & Neck: Adequate Mental/Hyoid Distance: Adequate Mallampati Class: Class III Intubation Access Assessment: Possibly Difficult - Pre-Operative Health Status ASA Pre-Surgery Classification: ASA3 Proposed Anesthetic Plan: MAC Nerve Block: supraclavicular - Pulmonary Hx Smoking: No Hx Respiratory Symptoms: Yes (occasional 3 pillow orthopnea; improved from previous) - Cardiovascular System Hx Hypertension: Yes (took antihypertensives this morning) Hx Heart Attack/AMI: No (EF 65% on TTE 11/2019) Hx Percutaneous Transluminal Coronary Angioplasty (PTCA): No Hx Peripheral Vascular Disease: Yes (hx AAA repair) - Central Nervous System CVA: No - Endocrine Hx End Stage Renal Disease: Yes (last HD 09/23/20) Hx Liver Disease: No Hx Insulin Dependent Diabetes: No Hx Non-Insulin Dependent Diabetes: No Hx Thyroid Disease: No - Hematic Hx Anemia: Yes - Other Systems Hx Obesity: Yes (BMI 33) - Additional Comments Anesthesia Medical History Comments: No hx anesthetic complications.
--- NOTE | 2020-09-24 10:42 | Anesthesia Day of Surgery ---
Anesthesia Day of Surgery - Day of Surgery Patient Examined: Yes Patient H&P Reviewed: Yes Patient is NPO: Yes Beta Blockers: Yes (cavedilol)
[2020-09-24 10:43] LABS: Calcium 8.8 mg/dL (8.4-10.2)
[2020-09-24] MEDS ORDERED: BUPIVACAINE/PF (0.25%) 2.5 MG/ML 30 ML VIAL INFILTRATI ONE (10:44)
[2020-09-24] MEDS ORDERED: HEPARIN 10,000 UNITS/10 ML VIAL ONE ×3 (10:53→14:13)
[2020-09-24] MEDS ORDERED: SODIUM CHLORIDE 0.9% 250ML 250 ML ONE (10:53)
[2020-09-24] MEDS ORDERED: PROTAMINE SULFATE 50 MG/5 ML INJ ONE (10:53)
[2020-09-24] MEDS ORDERED: THROMBIN (RECOMBINANT) 5,000 UNIT VIAL TP ONE ×2 (10:53→14:36)
[2020-09-24] MEDS ORDERED: GELATIN SPONGE SIZE 100 TP ONE ×2 (10:53→10:55)
[2020-09-24] MEDS ORDERED: ONDANSETRON 4 MG/2 ML INJ IV PRN (11:00)
[2020-09-24] MEDS ORDERED: HYDROcodone/ACETAMINOPHEN 5-325 MG TAB PO PRN (11:00)
[2020-09-24] MEDS ORDERED: BUPIVACAINE-EPINEPHRINE/PF 0.25%-1:200,000 (30 ML) VIAL INFILTRATI ONE (12:39)
[2020-09-24] MEDS ORDERED: ceFAZolin/Water 2 GM/20 ML 2 GM/20 ML SYRINGE IV ONE (13:03)
[2020-09-24] MEDS ORDERED: propofoL 200 MG/20 ML VIAL IV ONE (13:10)
[2020-09-24] MEDS ORDERED: fentaNYL 100 MCG/2 ML INJ ONE (13:10)
[2020-09-24] MEDS ORDERED: LIDOCAINE MPF (2%) 20 MG/1 ML VIAL 5 ML ONE (13:10)
[2020-09-24] MEDS ORDERED: HEPARIN 10,000 UNITS/10 ML VIAL IV ONE (13:50)
[2020-09-24] MEDS ORDERED: SODIUM CHLORIDE 0.9% 250 ML IVPB IV ONE (13:50)
[2020-09-24] MEDS ORDERED: ePHEDrine SULFATE 50 MG/1 ML INJ ONE (13:55)
[2020-09-24] MEDS ORDERED: ceFAZolin/STERILE WATER 2 GM/20 ML SYRINGE IV NR (14:00)
[2020-09-24] MEDS ORDERED: GELATIN SPONGE 12 X 7 TP ONE (14:36)
--- NOTE | 2020-09-24 15:21 | Post Operative Note ---
Date of procedure: 09/24/20 Pre-op diagnosis: ESRD Post-op diagnosis: same Procedure: Right Arm AV Graft Insertion Anesthesia: GETA Surgeon: CAITLIN CLARK Estimated blood loss: other (25ml) Condition: stable Disposition: PACU
--- NOTE | 2020-09-24 15:22 | Short Stay Summary ---
Short Stay Documentation Date of service: 09/24/20 - History H&P: obtained from office Past Medical History: ESRD, hypertension - Allergies and Medications Current Medications: Allergies AYLIN Inhibitors Allergy (Verified 09/16/20 10:56) Unknown Home Medications Medication Instructions Recorded Confirmed Last Taken Type Bumetanide [Bumetanide 2 mg tab] 2 mg PO BID 11/16/18 09/16/20 09/23/20 History NIFEdipine XL [Procardia Xl] 60 mg PO DAILY #30 tablet 09/22/19 09/16/20 09/23/20 Rx AtorvaSTATin [Lipitor] 20 mg PO QHS #30 tablet 04/18/20 09/16/20 09/23/20 Rx allopurinoL [Zyloprim] 0.5 tab PO QDAY #30 04/18/20 09/16/20 09/23/20 Rx carvediloL [Coreg] 25 mg PO BID #60 tablet 04/18/20 09/16/20 09/24/20 07:00 Rx cloNIDine [Catapres] 0.2 mg PO Q12HR #60 tablet 04/18/20 09/16/20 09/23/20 Rx hydrALAZINE [Apresoline TAB] 100 mg PO TID #90 tab 04/18/20 09/16/20 09/24/20 07:00 Rx Active Medications Hydrocodone Bitart/Acetaminophen (Hydrocodone/Acetaminophen 5-325 Mg Tab) 2 each PO ONCE PRN PRN Reason: Pain, Moderate (4-6) Stop: 09/24/20 18:00 Cefazolin Sodium (Cefazolin/Sterile Water 2 Gm/20 Ml Syringe) 2 gm IV PREOP NR Stop: 09/24/20 23:59 Fentanyl (Fentanyl 100 Mcg/2 Ml Inj) 100 mcg IV ONCE PRN PRN Reason: sedation for nerve block Stop: 09/24/20 23:59 Fentanyl (Fentanyl 100 Mcg/2 Ml Inj) 50 mcg IV Q5MIN PRN PRN Reason: Pain , Severe (7-10) Stop: 09/24/20 23:59 Sodium Chloride (Nacl 0.9% 1000 Ml) 1,000 mls @ 42 mls/hr IV DIRECT AYESHA Stop: 09/24/20 23:59 Last Admin: 09/24/20 09:47 Dose: 42 mls/hr Documented by: Midazolam HCl (Midazolam 2 Mg/2 Ml Inj) 2 mg IV PREOP NR Stop: 09/24/20 23:59 Ondansetron HCl (Ondansetron 4 Mg/2 Ml Inj) 4 mg IV ONCE PRN PRN Reason: Nausea And Vomiting Stop: 09/24/20 18:00 - Physical exam General appearance: no acute distress HEENT: Atraumatic Lungs: Normal air movement Heart: Regular rate Extremities: no ischemia - Hospital course Hospital course: the patient was taken to the operating room and had a right arm av graft insertion performed. please refer to the operative note concerning details of the procedure. the patient tolerated the procedure well and was discharged home in stable condition. - Disposition Condition at discharge: Stable Disposition: DC-01 TO HOME OR SELFCARE Short Stay Discharge Plan Follow up with: PRIMARY CARE, [Primary Care Provider] - 7 Days
[2020-09-24] MEDS ORDERED: oxyCODONE /ACETAMINOPHEN 5-325MG TAB PO PRN (15:23)
[2020-09-24] MEDS ORDERED: PHENYLEPHRINE/NS 1,000 MCG/10 ML SYRINGE (OR USE) IV ONE (15:24)
[2020-09-24] MEDS: fentaNYL 100 MCG/2 ML INJ IV PRN ×2 (15:52→16:05)
[2020-09-24 17:03] VITALS: BP 131/81
--- NOTE | 2020-09-24 17:23 | Operative Report ---
DATE OF SURGERY: 09/24/2020 PREOPERATIVE DIAGNOSIS: End-stage renal disease. POSTOPERATIVE DIAGNOSIS: End-stage renal disease. PROCEDURE PERFORMED: Right arm AV graft insertion. COMPLICATIONS: None. ESTIMATED BLOOD LOSS: 25 mL ANESTHESIA: General. INDICATIONS: This is a 35-year-old gentleman with end-stage renal disease on hemodialysis, in need of upper extremity access. The patient had a failed left arm brachiobasilic AV fistula due to postoperative bleeding secondary to Eliquis. The patient presents now for right arm access creation. The patient did not have any suitable veins in the right upper extremity, so was set to undergo AV graft insertion. The patient was explained the risks, benefits and alternative of procedure, expressed understanding and wished to proceed. DESCRIPTION OF PROCEDURE: After appropriate consent was obtained, the patient was brought back to the operating room and placed on the operating table in the supine position with the right arm extended. The patient was given appropriate medication for general anesthesia, had LMA placed without difficulty. The right arm was prepped and draped in a sterile fashion with ChloraPrep. Appropriate preoperative antibiotics were administered, and appropriate timeout was performed indicating correct patient, procedure, and site of procedure. We then began the operation by making a longitudinal incision near the antecubital fossa. This was carried through subcutaneous tissue with combination of blunt dissection and electrocautery. Dissection was then continued through the bicep aponeurosis, which allowed us to expose the brachial artery. This was found to be suitable for arterial inflow and was mobilized for appropriate distance both proximally and distally. We then proceeded to create a transverse incision near the axilla. This was carried through subcutaneous tissue with a combination of blunt dissection and electrocautery. Dissection was continued through the fascia overlying the axillary neurovascular bundle. Axillary vein was identified and found to be suitable for venous outflow and mobilized for appropriate distance both proximally and distally. Then, a subcutaneous tunnel was made between the 2 incision sites bringing through a 4-7 mm Propaten graft. The patient was then administered 5000 units of unfractionated heparin. After appropriate time had elapsed, the graft was appropriately spatulated. Vascular clamps were placed on the brachial artery, both proximally and distally. Longitudinal arteriotomy was made with 11 blade, extended with Iraheta scissors. We then proceeded to perform an end-to-side anastomosis with a running 6-0 Prolene suture. Once complete, flow was established through the graft, had a nice pulsatile flow. The graft was then cut to appropriate length and spatulated. Vascular clamps were placed on the axillary vein, both proximally and distally. Longitudinal venotomy was performed with a 11 blade, extended with Iraheta scissors. An end-to-side anastomosis was performed with a running 5-0 Prolene suture. Flow was reestablished through the graft with a nice palpable thrill. We then looked to obtain hemostasis along our suture lines, was obtained with hemostatic agents. Once we were satisfied with hemostasis, we then proceeded to close both wounds with a deep subcutaneous layer with interrupted 3-0 PDS and the skin was approximated with catherine. Appropriate dressing was placed. The patient tolerated the procedure well, emerged from the general anesthesia, had LMA removed and was sent to recovery in stable condition. All sponges, instruments and needle counts were correct at completion of the operation. TID: [id number] RECEIPT: [id number] GIVOANNA/ASA/MICKY
--- NOTE | 2020-09-24 17:25 | Post Anesthesia Evaluation ---
- Post Anesthesia Evaluation Patient Participated: Yes Airway Patent: Yes Stable Respiratory Function: Yes Nausea/Vomiting: No Temp > 96.8F: Yes Pain Manageable: Yes Adequeate Hydration: Yes Anesthesia Complications: No
== END 2020-09-24 18:00 | disposition home or self-care (01) ==
LOC: OR 09:09
PROVIDERS: ATTEND Surgery Vascular Surgery
DX: I13.2 Hypertensive heart and chronic kidney disease with heart failure and with stage 5 chronic kidney disease, or end stage renal disease (principal); N18.6 End stage renal disease; I50.33 Acute on chronic diastolic (congestive) heart failure; I25.10 Atherosclerotic heart disease of native coronary artery without angina pectoris; E78.00 Pure hypercholesterolemia, unspecified; G47.30 Sleep apnea, unspecified; E66.9 Obesity, unspecified; M19.90 Unspecified osteoarthritis, unspecified site; D64.9 Anemia, unspecified; E78.5 Hyperlipidemia, unspecified; M10.9 Gout, unspecified; G43.909 Migraine, unspecified, not intractable, without status migrainosus; Z98.890 Other specified postprocedural states; Z88.8 Allergy status to other drugs, medicaments and biological substances; Z79.899 Other long term (current) drug therapy; Z68.33 Body mass index [BMI] 33.0-33.9, adult; Z82.49 Family history of ischemic heart disease and other diseases of the circulatory system
CPT/HCPCS: 36415; 36830; 80048; 85027; A4649; C1768; J0690; J1644; J2370; J2405; J2704; J2720; J3010; J7030; J7050; J2250